=== PATIENT | male | born 1960 | race Caucasian/White ===

== ENCOUNTER 2018-03-29 15:55 | Inpatient (IN) | payer OTHER ==
[2018-03-29 16:47] VITALS: BMI 17.7
--- NOTE | 2018-03-29 20:08 | HP ---
CIWA Score - Admission Criteria [facility] Guidelines: Admission for Medically Managed Detox: Requires at least one of the followin. CIWA greater than 12 2. Seizures within the past 24 hours 3. Delirium tremens within the past 24 hours 4. Hallucinations within the past 24 hours 5. Acute intervention needed for co occurring medical disorder 6. Acute intervention needed for co occurring psychiatric disorder 7. Severe withdrawal that cannot be handled at a lower level of care (continued vomiting, continued diarrhea, abnormal vital signs) requiring intravenous medication and/or fluids 8. Admission ROS S - HPI Chief Complaint: Here to get straight from crack/cocaine. Allergies/Adverse Reactions: Allergies Allergy/AdvReac Type Severity Reaction Status Date / Time penicillin G AdvReac Rash Verified 03/29/18 17:45 History of Present Illness: Here for rehab. Hx crack/cocaine use since age 26. Use daily. Nicotine use began at age 25. Stopped drinking in the 90's. Longest length of sobriety 7 years. Denies seizures or blackouts. Hx: HIV (+) Brought in current bottles of Periactin, Hydrocortisone, Lexapro, Risperidal, and MVI tablets but states "My doctor told me to take them". Not sure what medications are for. States was taking HIV medications but did not bring to program. Aware that this will not be provided w/o proof of compliance. Treated for Hep C. Hx: Depression. Denies thoughts of harming self or others. No recent provider visits. Denies other significant PMH Search Terms: Meliton Mukherjee, 1960 Search Date: 03/29/2018 07:59:05 PM The Drug Utilization Report below displays all of the controlled substance prescriptions, if any, that your patient has filled in the last twelve months. The information displayed on this report is compiled from pharmacy submissions to the Department, and accurately reflects the information as submitted by the pharmacies. This report was requested by: Brie Dover | Reference #: [id number] There are no results for the search terms that you entered. Exam Limitations: No Limitations - Ebola screening Have you traveled outside of the country in the last 21 days: No Have you had contact with anyone from an Ebola affected area: No Have you been sick,other than usual withdrawal symptoms: No Do you have a fever: No - Review of Systems Constitutional: Loss of Appetite, Changes in sleep (Difficulty falling asleep. States Trazodone was stopped.) EENT: reports: Ear Pain ((R) ear pain when burps x 3 months ago.), Dental Problems (Missing teeth. Can chew and swallow okay.), Other (States glaucoma (R ) eye - states stopped eye drops on own) Respiratory: reports: No Symptoms reported Cardiac: reports: No Symptoms Reported GI: reports: Poor Appetite : reports: No Symptoms Reported Musculoskeletal: reports: Other (Hx spontaneous bilateral shoulder dislocations w/ certain movements.) Integumentary: reports: Rash (Rash on face w/ increased redness) Neuro: reports: No Symptoms reported Endocrine: reports: No Symptoms Reported Hematology: reports: No Symptoms Reported Psychiatric: reports: Judgement Intact, Orientated x3, Agitated, Anxious, Depressed (Denies thoughts of harming self or others) Patient History - Patient Medical History Hx Anemia: No Hx Asthma: No Hx Chronic Obstructive Pulmonary Disease (COPD): No Hx Cancer: No Hx Cardiac Disorders: No Hx Congestive Heart Failure: No Hx Hypertension: No Hx Hypercholesterolemia: No Hx Pacemaker: No HX Cerebrovascular Accident: No Hx Seizures: No Hx Dementia: No Hx Diabetes: No Hx Gastrointestinal Disorders: No Hx Liver Disease: No Hx Genitourinary Disorders: No Hx Sexually Transmitted Disorders: No Hx Renal Disease (ESRD): No Hx Thyroid Disease: No Hx Human Immunodeficiency Virus (HIV): Yes (2010) Hx Hepatitis C: Yes (TREATED) Hx Depression: Yes Hx Suicide Attempt: No Hx Bipolar Disorder: No Hx Schizophrenia: No - Patient Surgical History Past Surgical History: Yes Hx Neurologic Surgery: No Hx Cataract Extraction: No Hx Cardiac Surgery: No Hx Lung Surgery: No Hx Breast Surgery: No Hx Breast Biopsy: No Hx Abdominal Surgery: No Hx Appendectomy: No Hx Cholecystectomy: No Hx Genitourinary Surgery: No Hx Section: No Hx Orthopedic Surgery: No Other Surgical History: fx, left mandible in 1988 Anesthesia Reaction: No - PPD History Previous Implant?: Yes Documented Results: Negative w/proof Implanted On Prior [facility] Admission?: Yes Date: 10/29/17 Results: 0 mm PPD to be Administered?: No - Smoking Cessation Smoking history: Current every day smoker Have you smoked in the past 12 months: Yes Aproximately how many cigarettes per day: 20 Cigars Per Day: 0 Hx Chewing Tobacco Use: No Initiated information on smoking cessation: Yes 'Breaking Loose' booklet given: 03/29/18 - Substance & Tx. History Hx Alcohol Use: Yes (Stopped in 1994) Hx Substance Use: Yes Substance Use Type: Cocaine Hx Substance Use Treatment: Yes (rehabs, attempts at self detox) - Substances Abused Crack Route: Smoking Frequency: Daily Amount used: $100 Age of first use: 26 Date of Last Use: 03/28/18 Family Disease History - Family Disease History Family Disease History: Heart Disease: Father (), Brother, Respiratory: Mother (), Other: Father, Mother Admission Physical Exam [facility] - Vital Signs Vital Signs: Vital Signs - 24 hr 03/29/18 16:43 Temperature 97.7 F Pulse Rate 89 Respiratory 18 Rate Blood Pressure 140/70 - Physical General Appearance: Yes: No Apparent Distress, Appropriately Dressed, Thin, Anxious HEENTM: Yes: EOMI, Hearing grossly Normal, Normal Voice, AMARJIT, Pharynx Normal Respiratory: Yes: Lungs Clear, Normal Breath Sounds, No Respiratory Distress Neck: Yes: No masses,lesions,Nodules, Supple Breast: Yes: Breast Exam Deferred Cardiology: Yes: Regular Rhythm, Regular Rate, S1, S2 Abdominal: Yes: Increased Bowel Sounds Genitourinary: Yes: Within Normal Limits Back: Yes: Normal Inspection Musculoskeletal: Yes: full range of Motion, Gait Steady Neurological: Yes: hemodialysis patient care specialist II-XII NML intact, Fully Oriented, Alert, Motor Strength 5/5, Normal Mood/Affect, Normal Response Integumentary: Yes: Normal Color, Dry, Warm, Rash (Scattered flat, oval, erythematous rash on face) Lymphatic: Yes: Within Normal Limits - Diagnostic (1) Rash Current Visit: Yes Status: Chronic Comment: Facial lesions (2) Cocaine dependence Current Visit: Yes Status: Chronic Qualifiers: Substance use status: uncomplicated Qualified Code(s): F14.20 - Cocaine dependence, uncomplicated (3) Weight loss Current Visit: Yes Status: Chronic (4) Nicotine dependence Current Visit: Yes Status: Chronic Qualifiers: Nicotine product type: cigarettes Substance use status: uncomplicated Qualified Code(s): F17.210 - Nicotine dependence, cigarettes, uncomplicated (5) HIV (human immunodeficiency virus infection) Current Visit: Yes Status: Chronic Comment: Recommend the patient to have medication brought in for rehab stay Cleared for Admission [facility] - Detox or Rehab Claeared for Rehab Admission: Yes [facility] Breath Alcohol Content Breath Alcohol Content: 0 Urine Drug Screen - Results Drug Screen Negative: No Urine Drug Screen Results: [facility] Inpatient Rehab Admission - Initial Determination Are CD services needed?: Yes Free of communicable disease: No Not in need of hospitalization: Yes - Rehab Admission Criteria Previous failed treatment: Yes Poor recovery environment: Yes Comorbidities: Yes Lacks judgement: No Patient is meeting Inpatient Rehab admission criteria:: Yes (Patient's communicable disease is HIV)
[2018-03-29] MEDS ORDERED: IBUPROFEN 400 MG TABLET (FP) PO PRN (21:47)
[2018-03-29] MEDS ORDERED: ACETAMINOPHEN 325 MG TABLET (FP) PO PRN (21:47)
[2018-03-29] MEDS ORDERED: LOPERAMIDE HCL 2 MG CAPSULE PO PRN (21:47)
[2018-03-29] MEDS ORDERED: MAGNESIUM CITRATE 300 ML BOTTLE PO PRN (21:47)
[2018-03-29] MEDS ORDERED: MENTHOL/PHENOL 1 EACH UD MM PRN (21:47)
[2018-03-29] MEDS ORDERED: MAGNESIUM HYDROX 2400MG/30ML ORAL SUSPENSION 30 ML CUP PO PRN (21:47)
[2018-03-29] MEDS: THIAMINE HCL 100 MG TABLET (FP) PO SCH (23:12)
[2018-03-29] MEDS: hydrOXYzine PAMOATE 50 MG CAPSULE (FP) PO PRN (23:12)
[2018-03-29] MEDS: MELATONIN 5 MG TABLETS PO PRN (23:12)
[2018-03-29] MEDS: CYPROHEPTADINE HCL 4 MG TABLET PO SCH (23:12)
[2018-03-29] MEDS: BETAMETHASONE VALERATE 0.1% CREAM 15 GM TUBE TP SCH (23:13)
[2018-03-29] MEDS: HYDROCORTISONE 5 MG TABLET PO SCH (23:20)
[2018-03-30] MEDS: CYPROHEPTADINE HCL 4 MG TABLET PO SCH ×3 (06:22→21:29)
--- NOTE | 2018-03-30 06:41 | HP ---
Psychiatrist Admission - Data Date of interview: 03/30/18 Admission source: Self-referred Identifying data: This is the second [facility] admission for this 58 years old single male, unemployed on SSI, living in [facility] subsidized housing Medical History: Significant for HIV and history of treatment for hepatitis C and surgery for fracture left mandible. Smke cigarettes 1ppd Psychiatric History: Patient is known to caption writer from a previous admission to this facility on Oct 2017. He remains a poor historian, irritable and not too cooperative in providing information. He reported that he was diagnosed with depression and never had prevous psychiatric hospitalization. Reported that up to July 2017, he was receiving psychiatric outpatient services at [facility] on [address] [place]([facility]) and he was prescribed Risperdal 1 mg po HS. He reluctantly admitted to a suicide attempt by jumping(he did not say what) because of romantic conflict but his brother talked him out of it. He was discharged in last October on Risperdal 1 mg po HS. Told caption writer that he has not seen any psychiatrist nor taking any medications since his discharge. Mineral Surveying Technician called patient's pharmacy([facility])[phone] and was told patient filled scripts for 30 days supply of Risperdal 1 mg po HS and Lexapro 10 mg po daily on . At present, he is very irritable and reports sleeping poorly Physical/Sexual Abuse/Trauma History: Denies emotional, physical or sexual abuse as well as DV relationship Additional Comment: Reports a few previous misdemeanor arrests on charges of possession of narcotic Vital Signs: Vital Signs - 24 hr 03/29/18 03/30/18 03/30/18 16:43 00:30 03:30 Temperature 97.7 F Pulse Rate 89 Respiratory 18 16 16 Rate Blood Pressure 140/70 Allergies/Adverse Reactions: Allergies Allergy/AdvReac Type Severity Reaction Status Date / Time penicillin G AdvReac Rash Verified 03/29/18 17:45 Date of last physical exam: 03/29/18 Concur with the findings of this exam: Yes - Substance Abuse/Tx History Hx Substance Use: Yes Substance Use Type: Cocaine (Started smoking crack cocaine at age 26, consumes $ 100 worth daily. Last smoked on 03/28/18) Hx Substance Use Treatment: Yes (2-3previous inpt rehab admissions) Mental Status Exam - Mental Status Exam Alert and Oriented to: Time, Place, Person Cognitive Function: Fair Patient Appearance: Disheveled Mood: Irritable Affect: Appropriate Patient Behavior: Cooperative (Superficially) Speech Pattern: Clear Voice Loudness: Normal Thought Process: Intact Thought Disorder: Not Present Hallucinations: Denies Suicidal Ideation: Denies Insight/Judgement: Fair Sleep: Poorly Appetite: Poor Muscle strength/Tone: Normal Gait/Station: Normal Psychiatric Findings - Problem List ([place] 1, 2,3) (1) Cocaine dependence Current Visit: Yes Status: Chronic Qualifiers: Substance use status: uncomplicated Qualified Code(s): F14.20 - Cocaine dependence, uncomplicated (2) Nicotine dependence Current Visit: Yes Status: Chronic Qualifiers: Nicotine product type: cigarettes Substance use status: uncomplicated Qualified Code(s): F17.210 - Nicotine dependence, cigarettes, uncomplicated (3) Mood disorder Current Visit: No Status: Chronic (4) Bipolar II disorder Current Visit: No Status: Ruled-out (5) Substance induced mood disorder Current Visit: No Status: Acute (6) Substance-induced sleep disorder Current Visit: No Status: Acute (7) HIV (human immunodeficiency virus infection) Current Visit: Yes Status: Chronic Comment: Recommend the patient to have medication brought in for rehab stay (8) Hepatitis C Current Visit: No Status: Resolved Qualifiers: Viral hepatitis chronicity: unspecified Hepatic coma status: without hepatic coma Qualified Code(s): B19.20 - Unspecified viral hepatitis C without hepatic coma - Initial Treatment Plan Initial Treatment Plan: 1) Start Risperdal 1 mg po BID and Melatonin 5 mg po HS prn for insomnia. 2) Monitor progress
[2018-03-30 10:21] LABS: URINE APPEARANCE CLEAR; URINE BILIRUBIN NEGATIVE (<2.0 mg/dL); URINE COLOR STRAW; URINE GLUCOSE (UA) NEGATIVE (NEGATIVE); URINE KETONE NEGATIVE (NEGATIVE); URINE LEUK ESTERASE NEGATIVE (NEGATIVE); URINE NITRITE NEGATIVE (NEGATIVE); URINE PROTEIN NEGATIVE (NEGATIVE); URINE UROBILINOGEN NEGATIVE mg/dL (0.2-1.0)
[2018-03-30] MEDS: NICOTINE 21 MG/24 HOURS TOPICAL PATCH TD SCH (10:31)
[2018-03-30] MEDS: PRENATAL VITAMINS W/ FOLIC ACID TABLET (FP) PO SCH (10:31)
[2018-03-30] MEDS: BETAMETHASONE VALERATE 0.1% CREAM 15 GM TUBE TP SCH ×2 (10:32→21:30)
[2018-03-30] MEDS ORDERED: risperiDONE 1 MG TABLET (FP) PO SCH (12:15)
[2018-03-30] MEDS: ESCITALOPRAM OXALATE 10 MG TABLET (FP) PO SCH (13:34)
[2018-03-30 15:27] LABS: HEMATOCRIT 42.7 % (35.4-49); HEMOGLOBIN 13.9 GM/dL (11.7-16.9); MCHC 32.6 g/dl (32.0-35.9); MEAN CELL VOLUME 95.2 fl (80-96); MEAN PLT VOLUME 8.8 fl (7.5-11.1); PLATELET COUNT 107 K/MM3 (134-434); RBC 4.48 M/mm3 (4.00-5.60); RDW 14.8 % (11.9-15.9); WHITE BLOOD COUNT 4.6 K/mm3 (4.0-10.0)
[2018-03-30 15:37] LABS: ALBUMIN 3.2 g/dl (3.4-5.0); ALK PHOS 61 U/L (45-117); ANION GAP 5 MMOL/L (8-16); BILIRUBIN,TOTAL 0.2 mg/dL (0.2-1); BLOOD UREA NITROGEN 22 mg/dL (7-18); CALCIUM 8.9 mg/dL (8.5-10.1); CHLORIDE 110 mmol/L (98-107); CO2 26 mmol/L (21-32); CREATININE 1.5 mg/dL (0.55-1.3); GLUCOSE,RANDOM 107 mg/dL (74-106); POTASSIUM 4.1 mmol/L (3.5-5.1); SGOT/AST 15 U/L (15-37); SGPT/ALT 16 U/L (13-61); SODIUM 141 mmol/L (136-145); TOT PROT 6.6 g/dl (6.4-8.2)
[2018-03-30] MEDS: MELATONIN 5 MG TABLETS PO PRN (21:29)
[2018-03-30] MEDS: hydrOXYzine PAMOATE 50 MG CAPSULE (FP) PO PRN (21:29)
[2018-03-30] MEDS: THIAMINE HCL 100 MG TABLET (FP) PO SCH (21:29)
[2018-03-30] MEDS: risperiDONE 1 MG TABLET (FP) PO SCH (21:29)
[2018-03-30] MEDS: HYDROCORTISONE 5 MG TABLET PO SCH (21:31)
[2018-03-31] MEDS: CYPROHEPTADINE HCL 4 MG TABLET PO SCH ×3 (06:06→21:11)
[2018-03-31] MEDS: ESCITALOPRAM OXALATE 10 MG TABLET (FP) PO SCH (09:46)
[2018-03-31] MEDS: NICOTINE 21 MG/24 HOURS TOPICAL PATCH TD SCH (09:46)
[2018-03-31] MEDS: PRENATAL VITAMINS W/ FOLIC ACID TABLET (FP) PO SCH (09:46)
[2018-03-31] MEDS: hydrOXYzine PAMOATE 50 MG CAPSULE (FP) PO PRN ×2 (09:46→21:11)
[2018-03-31] MEDS: BETAMETHASONE VALERATE 0.1% CREAM 15 GM TUBE TP SCH ×2 (09:46→21:12)
[2018-03-31] MEDS ORDERED: PT OWN MED DRAWER 7, Y5N ONE (19:28)
[2018-03-31] MEDS: HYDROCORTISONE 5 MG TABLET PO SCH (21:11)
[2018-03-31] MEDS: MELATONIN 5 MG TABLETS PO PRN (21:11)
[2018-03-31] MEDS: THIAMINE HCL 100 MG TABLET (FP) PO SCH (21:11)
[2018-03-31] MEDS: risperiDONE 1 MG TABLET (FP) PO SCH (21:12)
[2018-04-01] MEDS: CYPROHEPTADINE HCL 4 MG TABLET PO SCH ×3 (06:03→21:32)
[2018-04-01] MEDS: ESCITALOPRAM OXALATE 10 MG TABLET (FP) PO SCH (10:01)
[2018-04-01] MEDS: NICOTINE 21 MG/24 HOURS TOPICAL PATCH TD SCH (10:01)
[2018-04-01] MEDS: PRENATAL VITAMINS W/ FOLIC ACID TABLET (FP) PO SCH (10:01)
[2018-04-01] MEDS: BETAMETHASONE VALERATE 0.1% CREAM 15 GM TUBE TP SCH ×2 (10:02→21:34)
[2018-04-01] MEDS: THIAMINE HCL 100 MG TABLET (FP) PO SCH (21:32)
[2018-04-01] MEDS: hydrOXYzine PAMOATE 50 MG CAPSULE (FP) PO PRN (21:32)
[2018-04-01] MEDS: risperiDONE 1 MG TABLET (FP) PO SCH (21:32)
[2018-04-01] MEDS: HYDROCORTISONE 5 MG TABLET PO SCH (21:32)
[2018-04-01] MEDS: MELATONIN 5 MG TABLETS PO PRN (21:32)
[2018-04-02] MEDS: CYPROHEPTADINE HCL 4 MG TABLET PO SCH ×3 (06:00→21:04)
[2018-04-02] MEDS: PRENATAL VITAMINS W/ FOLIC ACID TABLET (FP) PO SCH (09:51)
[2018-04-02] MEDS: NICOTINE 21 MG/24 HOURS TOPICAL PATCH TD SCH (09:52)
[2018-04-02] MEDS: BETAMETHASONE VALERATE 0.1% CREAM 15 GM TUBE TP SCH ×2 (09:52→21:06)
[2018-04-02] MEDS: ESCITALOPRAM OXALATE 10 MG TABLET (FP) PO SCH (09:52)
[2018-04-02] MEDS: hydrOXYzine PAMOATE 50 MG CAPSULE (FP) PO PRN (21:04)
[2018-04-02] MEDS: risperiDONE 1 MG TABLET (FP) PO SCH (21:04)
[2018-04-02] MEDS: MELATONIN 5 MG TABLETS PO PRN (21:04)
[2018-04-02] MEDS: THIAMINE HCL 100 MG TABLET (FP) PO SCH (21:04)
[2018-04-02] MEDS: HYDROCORTISONE 5 MG TABLET PO SCH (21:04)
[2018-04-02] MEDS ORDERED: PT OWN MED DRAWER 7, Y5N ONE (21:15)
[2018-04-03] MEDS: CYPROHEPTADINE HCL 4 MG TABLET PO SCH ×3 (06:14→21:50)
[2018-04-03] MEDS: NICOTINE 21 MG/24 HOURS TOPICAL PATCH TD SCH (09:44)
[2018-04-03] MEDS: ESCITALOPRAM OXALATE 10 MG TABLET (FP) PO SCH (09:44)
[2018-04-03] MEDS: PRENATAL VITAMINS W/ FOLIC ACID TABLET (FP) PO SCH (09:44)
[2018-04-03] MEDS: BETAMETHASONE VALERATE 0.1% CREAM 15 GM TUBE TP SCH ×2 (09:45→21:50)
[2018-04-03] MEDS: hydrOXYzine PAMOATE 50 MG CAPSULE (FP) PO PRN (21:50)
[2018-04-03] MEDS: risperiDONE 1 MG TABLET (FP) PO SCH (21:50)
[2018-04-03] MEDS: THIAMINE HCL 100 MG TABLET (FP) PO SCH (21:50)
[2018-04-03] MEDS: HYDROCORTISONE 5 MG TABLET PO SCH (21:51)
[2018-04-04] MEDS: CYPROHEPTADINE HCL 4 MG TABLET PO SCH ×3 (06:25→21:11)
[2018-04-04] MEDS: BETAMETHASONE VALERATE 0.1% CREAM 15 GM TUBE TP SCH ×2 (11:06→21:12)
[2018-04-04] MEDS: PRENATAL VITAMINS W/ FOLIC ACID TABLET (FP) PO SCH (11:06)
[2018-04-04] MEDS: NICOTINE 21 MG/24 HOURS TOPICAL PATCH TD SCH (11:06)
[2018-04-04] MEDS: ESCITALOPRAM OXALATE 10 MG TABLET (FP) PO SCH (11:06)
[2018-04-04] MEDS ORDERED: PT OWN MED DRAWER 7, Y5N ONE ×2 (20:33→21:17)
[2018-04-04] MEDS: risperiDONE 1 MG TABLET (FP) PO SCH (21:11)
[2018-04-04] MEDS: THIAMINE HCL 100 MG TABLET (FP) PO SCH (21:11)
[2018-04-04] MEDS: hydrOXYzine PAMOATE 50 MG CAPSULE (FP) PO PRN (21:11)
[2018-04-04] MEDS: MELATONIN 5 MG TABLETS PO PRN (21:11)
[2018-04-04] MEDS: HYDROCORTISONE 5 MG TABLET PO SCH (21:11)
[2018-04-04] MEDS: MAG HYDROX/AL HYDROX/SIMETH 30 ML UNIT-DOSE CUP PO PRN (21:17)
[2018-04-05] MEDS: CYPROHEPTADINE HCL 4 MG TABLET PO SCH ×3 (06:08→22:00)
[2018-04-05] MEDS: PRENATAL VITAMINS W/ FOLIC ACID TABLET (FP) PO SCH (10:11)
[2018-04-05] MEDS: NICOTINE 21 MG/24 HOURS TOPICAL PATCH TD SCH (10:11)
[2018-04-05] MEDS: ESCITALOPRAM OXALATE 10 MG TABLET (FP) PO SCH (10:11)
[2018-04-05] MEDS: BETAMETHASONE VALERATE 0.1% CREAM 15 GM TUBE TP SCH ×2 (10:12→21:58)
[2018-04-05] MEDS ORDERED: PT OWN MED DRAWER 7, Y5N ONE (19:50)
[2018-04-05] MEDS: MAG HYDROX/AL HYDROX/SIMETH 30 ML UNIT-DOSE CUP PO PRN (22:00)
[2018-04-05] MEDS: HYDROCORTISONE 5 MG TABLET PO SCH (22:00)
[2018-04-05] MEDS: hydrOXYzine PAMOATE 50 MG CAPSULE (FP) PO PRN (22:00)
[2018-04-05] MEDS: MELATONIN 5 MG TABLETS PO PRN (22:00)
[2018-04-05] MEDS: risperiDONE 1 MG TABLET (FP) PO SCH (22:00)
[2018-04-05] MEDS: THIAMINE HCL 100 MG TABLET (FP) PO SCH (22:01)
[2018-04-06] MEDS: CYPROHEPTADINE HCL 4 MG TABLET PO SCH ×3 (06:07→21:09)
[2018-04-06] MEDS: PRENATAL VITAMINS W/ FOLIC ACID TABLET (FP) PO SCH (09:52)
[2018-04-06] MEDS: ESCITALOPRAM OXALATE 10 MG TABLET (FP) PO SCH (09:52)
[2018-04-06] MEDS: NICOTINE 21 MG/24 HOURS TOPICAL PATCH TD SCH (09:52)
[2018-04-06] MEDS: BETAMETHASONE VALERATE 0.1% CREAM 15 GM TUBE TP SCH ×2 (09:53→21:10)
[2018-04-06] MEDS: HYDROCORTISONE 5 MG TABLET PO SCH (21:08)
[2018-04-06] MEDS: risperiDONE 1 MG TABLET (FP) PO SCH (21:08)
[2018-04-06] MEDS: THIAMINE HCL 100 MG TABLET (FP) PO SCH (21:08)
[2018-04-06] MEDS: MELATONIN 5 MG TABLETS PO PRN (21:09)
[2018-04-06] MEDS: hydrOXYzine PAMOATE 50 MG CAPSULE (FP) PO PRN (21:09)
[2018-04-07] MEDS: CYPROHEPTADINE HCL 4 MG TABLET PO SCH ×3 (05:51→21:30)
[2018-04-07] MEDS: ESCITALOPRAM OXALATE 10 MG TABLET (FP) PO SCH (10:38)
[2018-04-07] MEDS: NICOTINE 21 MG/24 HOURS TOPICAL PATCH TD SCH (10:38)
[2018-04-07] MEDS: PRENATAL VITAMINS W/ FOLIC ACID TABLET (FP) PO SCH (10:38)
[2018-04-07] MEDS: BETAMETHASONE VALERATE 0.1% CREAM 15 GM TUBE TP SCH ×2 (10:39→21:30)
[2018-04-07] MEDS: MELATONIN 5 MG TABLETS PO PRN (21:30)
[2018-04-07] MEDS: THIAMINE HCL 100 MG TABLET (FP) PO SCH (21:30)
[2018-04-07] MEDS: HYDROCORTISONE 5 MG TABLET PO SCH (21:30)
[2018-04-07] MEDS: risperiDONE 1 MG TABLET (FP) PO SCH (21:30)
[2018-04-08] MEDS: CYPROHEPTADINE HCL 4 MG TABLET PO SCH ×3 (06:28→21:17)
[2018-04-08] MEDS: ESCITALOPRAM OXALATE 10 MG TABLET (FP) PO SCH (09:37)
[2018-04-08] MEDS: BETAMETHASONE VALERATE 0.1% CREAM 15 GM TUBE TP SCH ×2 (09:37→21:17)
[2018-04-08] MEDS: NICOTINE 21 MG/24 HOURS TOPICAL PATCH TD SCH (09:37)
[2018-04-08] MEDS: PRENATAL VITAMINS W/ FOLIC ACID TABLET (FP) PO SCH (09:37)
[2018-04-08] MEDS: THIAMINE HCL 100 MG TABLET (FP) PO SCH (21:17)
[2018-04-08] MEDS: HYDROCORTISONE 5 MG TABLET PO SCH (21:17)
[2018-04-08] MEDS: risperiDONE 1 MG TABLET (FP) PO SCH (21:17)
[2018-04-08] MEDS: hydrOXYzine PAMOATE 50 MG CAPSULE (FP) PO PRN (21:20)
[2018-04-08] MEDS: MELATONIN 5 MG TABLETS PO PRN (21:20)
[2018-04-09] MEDS: CYPROHEPTADINE HCL 4 MG TABLET PO SCH ×3 (06:11→21:09)
[2018-04-09] MEDS: NICOTINE 21 MG/24 HOURS TOPICAL PATCH TD SCH (09:26)
[2018-04-09] MEDS: BETAMETHASONE VALERATE 0.1% CREAM 15 GM TUBE TP SCH ×2 (09:26→21:09)
[2018-04-09] MEDS: PRENATAL VITAMINS W/ FOLIC ACID TABLET (FP) PO SCH (09:26)
[2018-04-09] MEDS: ESCITALOPRAM OXALATE 10 MG TABLET (FP) PO SCH (09:26)
[2018-04-09] MEDS: MAG HYDROX/AL HYDROX/SIMETH 30 ML UNIT-DOSE CUP PO PRN (16:04)
[2018-04-09] MEDS: risperiDONE 1 MG TABLET (FP) PO SCH (21:08)
[2018-04-09] MEDS: HYDROCORTISONE 5 MG TABLET PO SCH (21:09)
[2018-04-09] MEDS: THIAMINE HCL 100 MG TABLET (FP) PO SCH (21:09)
[2018-04-09] MEDS: MELATONIN 5 MG TABLETS PO PRN (21:11)
[2018-04-10] MEDS: CYPROHEPTADINE HCL 4 MG TABLET PO SCH ×3 (05:57→21:29)
[2018-04-10] MEDS: PRENATAL VITAMINS W/ FOLIC ACID TABLET (FP) PO SCH (10:50)
[2018-04-10] MEDS: BETAMETHASONE VALERATE 0.1% CREAM 15 GM TUBE TP SCH ×2 (10:50→21:29)
[2018-04-10] MEDS: NICOTINE 21 MG/24 HOURS TOPICAL PATCH TD SCH (10:50)
[2018-04-10] MEDS: ESCITALOPRAM OXALATE 10 MG TABLET (FP) PO SCH (10:50)
[2018-04-10] MEDS: MAG HYDROX/AL HYDROX/SIMETH 30 ML UNIT-DOSE CUP PO PRN ×2 (14:06→21:33)
[2018-04-10] MEDS: risperiDONE 1 MG TABLET (FP) PO SCH (21:29)
[2018-04-10] MEDS: HYDROCORTISONE 5 MG TABLET PO SCH (21:29)
[2018-04-10] MEDS: THIAMINE HCL 100 MG TABLET (FP) PO SCH (21:29)
[2018-04-10] MEDS: MELATONIN 5 MG TABLETS PO PRN (21:30)
[2018-04-11] MEDS: CYPROHEPTADINE HCL 4 MG TABLET PO SCH ×3 (05:51→21:07)
[2018-04-11] MEDS: PRENATAL VITAMINS W/ FOLIC ACID TABLET (FP) PO SCH (09:47)
[2018-04-11] MEDS: NICOTINE 21 MG/24 HOURS TOPICAL PATCH TD SCH (09:47)
[2018-04-11] MEDS: ESCITALOPRAM OXALATE 10 MG TABLET (FP) PO SCH (09:47)
[2018-04-11] MEDS: BETAMETHASONE VALERATE 0.1% CREAM 15 GM TUBE TP SCH ×2 (10:33→21:07)
[2018-04-11] MEDS: MELATONIN 5 MG TABLETS PO PRN (21:06)
[2018-04-11] MEDS: hydrOXYzine PAMOATE 50 MG CAPSULE (FP) PO PRN (21:06)
[2018-04-11] MEDS: risperiDONE 1 MG TABLET (FP) PO SCH (21:06)
[2018-04-11] MEDS: THIAMINE HCL 100 MG TABLET (FP) PO SCH (21:06)
[2018-04-11] MEDS: HYDROCORTISONE 5 MG TABLET PO SCH (21:07)
[2018-04-11] MEDS: MAG HYDROX/AL HYDROX/SIMETH 30 ML UNIT-DOSE CUP PO PRN (21:57)
[2018-04-12] MEDS: CYPROHEPTADINE HCL 4 MG TABLET PO SCH (05:57)
[2018-04-12 06:40] VITALS: BP 113/73; PULSE 91; TEMP 97.7
--- NOTE | 2018-04-12 08:08 | PN ---
Psychiatric Progress Note Vital Signs: Vital Signs Period Temp Pulse Resp BP Sys/Jimenez Pulse Ox Last 24 Hr 97.7 F 91 18-18 113/73 Date of Session: 04/12/18 Chief Complaint:: Discharge Note HPI: Patient addressing Cocaine Dependence comorbid with Nicotine Dependence, Mood Disorder, Substance-InducedMood Disorder and Substance-Induced Sleep Disorder ROS: HIV, Hep C were medically managed Current Medications: Active Medications Generic Name Dose Route Start Last Admin Trade Name Freq PRN Reason Stop Dose Admin Acetaminophen 650 mg 03/29/18 21:47 Tylenol - PO Q4H PRN FEVER Al Hydroxide/Mg Hydroxide 30 ml 03/29/18 21:47 04/11/18 21:57 Mylanta Oral Suspension - PO 30 ml Q6H PRN Administration DYSPEPSIA Betamethasone Valerate 1 applic 03/29/18 22:00 04/11/18 21:07 Valisone 0.1% Cream - TP 1 pack BID SAMIRA Administration Cyproheptadine HCl 4 mg 03/29/18 22:00 04/12/18 05:57 Periactin - PO 4 mg TID SAMIRA Administration Escitalopram Oxalate 10 mg 03/30/18 12:40 04/11/18 09:47 Lexapro - PO 10 mg DAILY SAMIRA Administration Eucalyptus/Menthol/Phenol/Sorbitol 1 each 03/29/18 21:47 Cepastat Lozenge - MM Q4H PRN SORE THROAT Hydrocortisone 5 mg 03/29/18 22:00 04/11/18 21:07 Cortef - PO 5 mg HS SAMIRA Administration Hydroxyzine Pamoate 50 mg 03/29/18 21:47 04/11/18 21:06 Vistaril - PO 50 mg Q4H PRN Administration AGITATION Ibuprofen 400 mg 03/29/18 21:47 Motrin - PO Q6H PRN Pain level 4-6 Loperamide HCl 4 mg 03/29/18 21:47 Imodium - PO Q6H PRN DIARRHEA Magnesium Citrate 300 ml 03/29/18 21:47 Citroma - PO Q48H PRN CONSTIPATION Magnesium Hydroxide 30 ml 03/29/18 21:47 Milk Of Magnesia - PO DAILY PRN CONSTIPATION Melatonin 5 mg 03/29/18 22:00 04/11/18 21:06 Melatonin PO 5 mg HS PRN Administration INSOMNIA Nicotine 21 mg 03/30/18 10:00 04/11/18 09:47 Nicoderm Patch - TD 21 mg DAILY SAMIRA Administration Multivit/Folic Acid/Iron 1 tab 03/30/18 10:00 04/11/18 09:47 Vitamins (Sjr) - PO 1 tab DAILY SAMIRA Administration Risperidone 1 mg 03/30/18 22:00 04/11/18 21:06 Risperdal - PO 1 mg HS SAMIRA Administration Thiamine HCl 100 mg 03/29/18 22:00 04/11/18 21:06 Vitamin B1 - PO 100 mg HS SAMIRA Administration Current Side Effect: No Lab tests ordered: Yes Lab tests reviewed: Yes Provider note:: Patient has completed this program today. He has met his treatment goals and will continue to address his issues in outpatient treatment at [facility] at [address] [place] [address]. Told video games storywriter that from his participation in this program, he has learned the importance of making meetings and get a sponsor. He responded well to Lexapro 10 mg po daily and Risperdal 1 mg po HS. Scripts for 30 days supply of these medications are electronically transmitted to [facility] at [address] [place] [address]. He is stable for discharge today Total face to face time:: 35 Mental Status Exam - Mental Status Exam Alert and Oriented to: Time, Place, Person Cognitive Function: Fair Patient Appearance: Well Groomed Mood: Hopeful, Euthymic Affect: Appropriate Patient Behavior: Cooperative Speech Pattern: Clear Voice Loudness: Normal Thought Process: Intact, Goal Oriented Thought Disorder: Not Present Hallucinations: Denies Suicidal Ideation: Denies Insight/Judgement: Fair Sleep: Fair Appetite: Good Muscle strength/Tone: Normal Gait/Station: Normal Psychiatric Treatment Plan - Problem List (1) Cocaine dependence Current Visit: Yes Qualifiers: Substance use status: uncomplicated Qualified Code(s): F14.20 - Cocaine dependence, uncomplicated (2) Nicotine dependence Current Visit: Yes Qualifiers: Nicotine product type: cigarettes Substance use status: uncomplicated Qualified Code(s): F17.210 - Nicotine dependence, cigarettes, uncomplicated (3) Mood disorder Current Visit: No (4) Bipolar II disorder Current Visit: No (5) Substance induced mood disorder Current Visit: No (6) Substance-induced sleep disorder Current Visit: No (7) HIV (human immunodeficiency virus infection) Current Visit: Yes Comment: Recommend the patient to have medication brought in for rehab stay (8) Hepatitis C Current Visit: No Qualifiers: Viral hepatitis chronicity: unspecified Hepatic coma status: without hepatic coma Qualified Code(s): B19.20 - Unspecified viral hepatitis C without hepatic coma Initial treatment plan: Patient is discharged today and referred to [facility] for outpatient treatment
[2018-04-12] MEDS: ESCITALOPRAM OXALATE 10 MG TABLET (FP) PO SCH (09:01)
[2018-04-12] MEDS: NICOTINE 21 MG/24 HOURS TOPICAL PATCH TD SCH (09:01)
[2018-04-12] MEDS: PRENATAL VITAMINS W/ FOLIC ACID TABLET (FP) PO SCH (09:01)
[2018-04-12] MEDS: BETAMETHASONE VALERATE 0.1% CREAM 15 GM TUBE TP SCH (09:02)
--- NOTE | 2018-04-12 10:00 | PN ---
[facility] Progress Note Note: PATIENT COMPLETED REHAB TODAY WITHOUT ADVERSE EVENT. PATIENT MEDICALLY STABLE AND DENIES SI/HI. PATIENT TO FOLLOW UP WITH [facility] FOR OUTPATIENT ADDICTION SERVICES AND PRIMARY CARE SERVICES. PATIENT ENCOURAGED TO ATTEND GROUP MEETINGS AND OUTPATIENT TREATMENT TO PREVENT RELAPSE. PATIENT NONCOMPLIANT WITH MEDICAL TREATMENT AND EDUCATED REGARDING IMPORTANCE OF COMPLIANCE AND MEDICAL FOLLOW UP. PATIENT VERBALIZED UNDERSTANDING AND D/C PAPERS PROVIDED TO PATIENT BY STAFF. Vital Signs Temperature 97.7 F 04/12/18 06:39 Pulse Rate 91 H 04/12/18 06:39 Respiratory Rate 18 04/12/18 06:39 Blood Pressure 113/73 04/12/18 06:39 O2 Sat by Pulse Oximetry (%)
== END 2018-04-12 10:03 | disposition home or self-care (01) | DRG 772 ==
LOC: YASAS 15:55 → Y3W 18:43
PROVIDERS: ADMIT Psychiatry & Neurology Psychiatry; ATTEND Psychiatry & Neurology Psychiatry
PROC: HZ42ZZZ Group Counseling for Substance Abuse Treatment, Cognitive-Behavioral (ICD-10-PCS; principal; 2018-03-29)
DX: F14.20 Cocaine dependence, uncomplicated (principal); F17.210 Nicotine dependence, cigarettes, uncomplicated; F39 Unspecified mood [affective] disorder; F31.81 Bipolar II disorder; F19.24 Other psychoactive substance dependence with psychoactive substance-induced mood disorder; F19.282 Other psychoactive substance dependence with psychoactive substance-induced sleep disorder; Z21 Asymptomatic human immunodeficiency virus [HIV] infection status; B19.20 Unspecified viral hepatitis C without hepatic coma; R21 Rash and other nonspecific skin eruption; Z88.0 Allergy status to penicillin
CPT/HCPCS: 36415; 80053; 81003; 85027; 86593; J2794

== ENCOUNTER 2019-11-16 10:37 | Inpatient (IN) | payer OTHER ==
--- NOTE | 2019-11-16 10:44 | BHS.RME ---
Substance Use & Tx History - Substance Use History Alcohol Substance amount: 1 bacardi pint Frequency of use: Daily Substance route: Oral Date of Last Use: 11/16/19 Nicotine Substance amount: 1 pack Frequency of use: Daily Substance route: Smoking Date of Last Use: 11/16/19 Physical/Psych/Mental Status - Behavior General Behavior: Increased activity (restlessness, agitation) Eye Contact: Normal - Cooperativeness Cooperativeness: Cooperative - Thinking Thought Processes: Tight, Logical, Goal Directed - Physical Health Problems Is patient presently having any pain?: No Does patient presently have any injuries (include location): No Does patient currently have a fever: No Is patient : No CIWA Nausea/Vomitin Muscle Tremors: 4-Moderate,w/Arms Extend Anxiety: 4-Mod. Anxious/Guarded Agitation: 5 Paroxysmal Sweats: 1-Minimal Palms Moist Orientation: 1-Uncertain about Date Tacttile Disturbances: 0-None Auditory Disturbances: 0-None Visual Disturbances: 0-None Headache: 1-Very Mild CIWA-Ar Total Score: 19
--- NOTE | 2019-11-16 11:02 | HP ---
CIWA Score Nausea/Vomitin Muscle Tremors: 4-Moderate,w/Arms Extend Anxiety: 4-Mod. Anxious/Guarded Agitation: 5 Paroxysmal Sweats: 1-Minimal Palms Moist Orientation: 1-Uncertain about Date Tacttile Disturbances: 0-None Auditory Disturbances: 0-None Visual Disturbances: 0-None Headache: 1-Very Mild CIWA-Ar Total Score: 19 - Admission Criteria OASAS Guidelines: Admission for Medically Managed Detox: Requires at least one of the followin. CIWA greater than 12 2. Seizures within the past 24 hours 3. Delirium tremens within the past 24 hours 4. Hallucinations within the past 24 hours 5. Acute intervention needed for co occurring medical disorder 6. Acute intervention needed for co occurring psychiatric disorder 7. Severe withdrawal that cannot be handled at a lower level of care (continued vomiting, continued diarrhea, abnormal vital signs) requiring intravenous medication and/or fluids 8. Admitting History and Physical - Admission Chief Complaint: " I need help stopping drinking." History of Present Illness: 59 year old male with history of alcohol dependence with withdrawals. He was assessed in [facility] on 05/31/19 and at that time was only drinking 3 times a week. He has not progressed to drinking daily and at larger quantities. Substance Use & Tx History - Substance Use History Alcohol Substance amount: 1 bacardi pint Frequency of use: Daily Substance route: Oral Date of Last Use: 11/16/19 Patient admits to blackouts in the past, and endorses the need for an eye cupola liner daily to stave off withdrawals. Nicotine Substance amount: 1 pack Frequency of use: Daily Substance route: Smoking Date of Last Use: 11/16/19 PMH: HIV on Genvoya Psurg: None Psych: Depression ( non-compliant) Patient lives in [facility] in the [place]. He has not legal problems. CALEB=0.014 CIWA=19 Patient now meets criteria for detox as he has a poor environment for recovery, lives in a building infested with drugs and alcohol and other users. In addition, he has medical and psychiatric co-morbidities. History Source: Patient Limitations to Obtaining History: No Limitations - Past Medical History Infectious Disease: Yes: HIV - Past Surgical History Past Surgical History: Yes: None - Smoking History Smoking history: Current every day smoker Have you smoked in the past 12 months: Yes Aproximately how many cigarettes per day: 20 - Alcohol/Substance Use Hx Alcohol Use: Yes (Stopped in 1994) History of Substance Use: reports: Cocaine - Social History Usual Living Arrangement: Yes: Alone Do you think of yourself as: Straight/Heterosexual ADL: Independent Occupation: unemployed SSI disability History of Recent Travel: No Admission ROS S - HPI Allergies/Adverse Reactions: Allergies Allergy/AdvReac Type Severity Reaction Status Date / Time penicillin G AdvReac Rash Verified 03/29/18 17:45 Exam Limitations: No Limitations - Ebola screening Have you traveled outside of the country in the last 21 days: No Have you had contact with anyone from an Ebola affected area: No Have you been sick,other than usual withdrawal symptoms: No Do you have a fever: No - Review of Systems Constitutional: Chills, Diaphoresis, Unintentional Wgt. Loss EENT: reports: No Symptoms Reported Respiratory: reports: No Symptoms reported Cardiac: reports: No Symptoms Reported GI: reports: No Symptoms Reported : reports: No Symptoms Reported Musculoskeletal: reports: No Symptoms Reported Integumentary: reports: No Symptoms Reported Neuro: reports: No Symptoms reported Endocrine: reports: No Symptoms Reported Hematology: reports: No Symptoms Reported Psychiatric: reports: Judgement Intact, Mood/Affect Appropiate, Orientated x3, Agitated, Anxious Other Systems: Reviewed and Negative Patient History - Patient Medical History Hx Anemia: No Hx Asthma: No Hx Chronic Obstructive Pulmonary Disease (COPD): No Hx Cancer: No Hx Cardiac Disorders: No Hx Congestive Heart Failure: No Hx Hypertension: No Hx Hypercholesterolemia: No Hx Pacemaker: No HX Cerebrovascular Accident: No Hx Seizures: No Hx Dementia: No Hx Diabetes: No Hx Gastrointestinal Disorders: No Hx Liver Disease: No Hx Genitourinary Disorders: No Hx Sexually Transmitted Disorders: No Hx Renal Disease (ESRD): No Hx Thyroid Disease: No Hx Human Immunodeficiency Virus (HIV): Yes (2010) Hx Hepatitis C: Yes (TREATED) Hx Depression: Yes Hx Suicide Attempt: No Hx Bipolar Disorder: No Hx Schizophrenia: No - Patient Surgical History Past Surgical History: Yes Hx Neurologic Surgery: No Hx Cataract Extraction: No Hx Cardiac Surgery: No Hx Lung Surgery: No Hx Breast Surgery: No Hx Breast Biopsy: No Hx Abdominal Surgery: No Hx Appendectomy: No Hx Cholecystectomy: No Hx Genitourinary Surgery: No Hx Section: No Hx Orthopedic Surgery: No Other Surgical History: fx, left mandible in 1988 Anesthesia Reaction: No - PPD History Previous Implant?: Yes Documented Results: Negative w/o proof Implanted On Prior [facility] Admission?: Yes Date: 10/29/17 Results: 0 mm PPD to be Administered?: Yes - Smoking Cessation Smoking history: Current every day smoker Have you smoked in the past 12 months: Yes Aproximately how many cigarettes per day: 20 Cigars Per Day: 0 Hx Chewing Tobacco Use: No Initiated information on smoking cessation: Yes 'Breaking Loose' booklet given: 11/16/19 - Substances abused Alcohol Substance route: Oral Frequency: Daily Amount used: 1 pint baccardi Age of first use: 39 Date of last use: 11/16/19 Crack Substance route: Smoking Frequency: Daily Amount used: $100 per week Age of first use: 39 Date of last use: 11/15/19 Admission Physical Exam BHS - Physical General Appearance: Yes: Alcohol on Breath, Thin, Tremorous, Irritable, Sweating, Anxious HEENTM: Yes: EOMI, Hearing grossly Normal, Normal ENT Inspection, Normocephalic, Normal Voice, AMARJIT, Pharynx Normal, Tm's normal Respiratory: Yes: Chest Non-Tender, Lungs Clear, Normal Breath Sounds, No Respiratory Distress, No Accessory Muscle Use Neck: Yes: No masses,lesions,Nodules, Supple, Trachea in good position Breast: Yes: Within Normal Limits Cardiology: Yes: Regular Rhythm, Regular Rate, S1, S2 Abdominal: Yes: Normal Bowel Sounds, Non Tender, Flat, Soft Genitourinary: Yes: Within Normal Limits Back: Yes: Normal Inspection Musculoskeletal: Yes: full range of Motion, Gait Steady, Pelvis Stable Extremities: Yes: Normal Capillary Refill, Normal Inspection, Normal Range of Motion, Non-Tender Neurological: Yes: project manager interior design II-XII NML intact, Fully Oriented, Alert, Motor Strength 5/5, Normal Mood/Affect, Normal Response Integumentary: Yes: Normal Color, Dry, Warm Lymphatic: Yes: Within Normal Limits - Diagnostic (1) Substance-induced sleep disorder Current Visit: Yes Status: Acute (2) Cocaine dependence Current Visit: Yes Status: Chronic Qualifiers: Substance use status: uncomplicated Qualified Code(s): F14.20 - Cocaine dependence, uncomplicated (3) HIV (human immunodeficiency virus infection) Current Visit: Yes Status: Chronic Comment: Recommend the patient to have medication brought in for rehab stay (4) Nicotine dependence Current Visit: Yes Status: Chronic Qualifiers: Nicotine product type: cigarettes Substance use status: uncomplicated Qualified Code(s): F17.210 - Nicotine dependence, cigarettes, uncomplicated (5) Weight loss Current Visit: Yes Status: Chronic (6) Depression (emotion) Current Visit: Yes Status: Suspected Qualifiers: Depression Type: dysthymia Qualified Code(s): F34.1 - Dysthymic disorder (7) Hepatitis C Current Visit: Yes Status: Resolved Qualifiers: Viral hepatitis chronicity: unspecified Hepatic coma status: without hepatic coma Qualified Code(s): B19.20 - Unspecified viral hepatitis C without hepatic coma (8) Bipolar II disorder Current Visit: Yes Status: Ruled-out Cleared for Admission [facility] - Detox or Rehab [facility] Level of Care: Medically Managed Detox Regimen/Protocol: Librium Claeared for Rehab Admission: No Screened but not Admitted - Documentation of Visit Screened but not Admitted: No Breathalyzer - Breathalyzer Breathalyzer: 0.014 Vital Signs - Vital Signs Vital signs refused: No Temperature: 97.4 F Temperature source: Oral Pulse Rate: 79 Respiratory Rate: 18 Blood Pressure: 104/68 BP Location: Left Arm Blood Pressure position: Sitting - Height Height: 5 ft 8 in - Weight Weight: 108 lb Weight measurement method: Standing scale - BMI Body Mass Index (BMI): 16.4 - Bowel Function Bowel Movement: No Urine Drug Screen - Results Urine drug screen results: LYNN-Cocaine, BZO-Benzodiazepines Inpatient Rehab Admission - Rehab Decision to Admit Inpatient rehab admission?: No
[2019-11-16 11:05] VITALS: BMI 16.4
[2019-11-16] MEDS ORDERED: ACETAMINOPHEN 325 MG TABLET (FP) PO PRN ×2 (11:14)
[2019-11-16] MEDS ORDERED: chlordiazePOXIDE HCL 25 MG CAPSULE PO PRN (11:14)
[2019-11-16] MEDS ORDERED: MENTHOL/PHENOL 1 EACH UD MM PRN (11:14)
[2019-11-16] MEDS ORDERED: IBUPROFEN 400 MG TABLET (FP) PO PRN (11:14)
[2019-11-16] MEDS ORDERED: BISMUTH SUBSALICYLATE 524 MG/30 ML UD PO PRN (11:14)
[2019-11-16] MEDS ORDERED: NICOTINE POLACRILEX 2 MG GUM BUC PRN (11:14)
[2019-11-16] MEDS ORDERED: MAGNESIUM HYDROX 2400MG/30ML ORAL SUSPENSION 30 ML CUP PO PRN (11:14)
[2019-11-16] MEDS ORDERED: MAG HYDROX/AL HYDROX/SIMETH 30 ML UNIT-DOSE CUP PO PRN (11:14)
[2019-11-16] MEDS ORDERED: METHOCARBAMOL 500 MG TABLET PO PRN (11:14)
[2019-11-16] MEDS ORDERED: MAGNESIUM CITRATE 300 ML BOTTLE PO PRN (11:14)
[2019-11-16] MEDS ORDERED: ONDANSETRON *ODT* 4 MG TABLET SL ONE (12:00)
[2019-11-16] MEDS: chlordiazePOXIDE HCL 25 MG CAPSULE PO SCH ×3 (14:13→22:31)
[2019-11-16] MEDS: PRENATAL VITAMINS W/ FOLIC ACID TABLET (FP) PO SCH (14:16)
[2019-11-16] MEDS: NICOTINE 7 MG/24 HOURS TOPICAL PATCH TD SCH (14:18)
[2019-11-16] MEDS: hydrOXYzine PAMOATE 25 MG CAPSULE (FP) PO SCH ×3 (14:19→22:32)
[2019-11-16 15:00] LABS: HEMATOCRIT 42.7 % (35.4-49); HEMOGLOBIN 14.3 GM/dL (11.7-16.9); MCH 32.6 pg (25.7-33.7); MCHC 33.5 g/dl (32.0-35.9); MEAN CELL VOLUME 97.5 fl (80-96); MEAN PLT VOLUME 9.3 fl (7.5-11.1); PLATELET COUNT 132 K/MM3 (134-434); RBC 4.38 M/mm3 (4.00-5.60); RDW 14.6 % (11.9-15.9); WHITE BLOOD COUNT 4.1 K/mm3 (4.0-10.0)
[2019-11-16 15:15] LABS: ALBUMIN 3.6 g/dl (3.4-5.0); BILIRUBIN,TOTAL 0.4 mg/dL (0.2-1); BLOOD UREA NITROGEN 15.5 mg/dL (7-18); CALCIUM 8.9 mg/dL (8.5-10.1); CREATININE 1.5 mg/dL (0.55-1.3); POTASSIUM 3.5 mmol/L (3.5-5.1); TOT PROT 7.4 g/dl (6.4-8.2)
--- NOTE | 2019-11-16 17:30 | CONSULT ---
[facility] Psychiatric Consult - Data Date of interview: 11/16/19 Admission source: [facility] Identifying data: Revisit to [facility] and admission to [address] [place] [address] for this 59 y/o Hospanic male self-referred for detoxification treatment. KELLY issues : alcohol, crack/cocaine, nicotine. Patient is single, no dependents, domiciled, unemployed and supported on SSI benefits. Substance Abuse History: Discussed with the patient. KELLY profile as follows : Smoking history: Current every day smoker. Have you smoked in the past 12 months: Yes. Aproximately how many cigarettes per day: 20. Cigars Per Day: 0. Hx Chewing Tobacco Use: No. Initiated information on smoking cessation: Yes. 'Breaking Loose' booklet given: 11/16/19. - Substances abused. Alcohol. Substance route: Oral. Frequency: Daily. Amount used: 1 pint baccardi. Age of first use: 39. Date of last use: 11/16/19. Crack. Substance route: Smoking. Frequency: Daily. Amount used: $100 per week. Age of first use: 39. Date of last use: 11/15/19. Alcohol. Substance amount: 1 bacardi pint. Frequency of use: Daily. Substance route: Oral. Date of Last Use: 11/16/19. Patient admits to blackouts in the past, and endorses the need for an eye trichologist daily to stave off withdrawals. Nicotine. Substance amount: 1 pack. Frequency of use: Daily. Substance route: Smoking. Date of Last Use: 11/16/19 Medical History: Medical history is remarkable for HIV infection, hepatitis C and past surgery for fracture of left mandible. Noted report of allergy to penicillins. Psychiatric History: Patient is an uncooperative historian. History taken from existing records ([facility]). Patient has been diagnosed with MDD (past psychiatric hospitalization : unclear). As per records, until July 2017, Mr Mukherjee received psychiatric outpatient services at [facility] (an affiliate of [facility]) and managed with risperdal 1 mg/hs. In this interview, he reports current care with lexapro + risperdal (no recall of doses). No contact with psychiatric OPD care providers. Patient denies history of suicide attempts. Physical/Sexual Abuse/Trauma History: Not discussed (patient uncooperative). Additional Comment: Urine drug screen results: LYNN-Cocaine, BZO-Benzodiazepines. Noted. Psychiatric Findings - Problem List ([place] 1, 2,3) (1) Alcohol use disorder Current Visit: Yes Status: Chronic (2) Cocaine dependence Current Visit: Yes Status: Chronic Qualifiers: Substance use status: uncomplicated Qualified Code(s): F14.20 - Cocaine dependence, uncomplicated (3) Nicotine dependence Current Visit: Yes Status: Chronic Qualifiers: Nicotine product type: cigarettes Substance use status: uncomplicated Qualified Code(s): F17.210 - Nicotine dependence, cigarettes, uncomplicated (4) Substance induced mood disorder Current Visit: Yes Status: Chronic (5) History of bipolar disorder Current Visit: Yes Status: Chronic (6) Non-compliance Current Visit: Yes Status: Chronic - Initial Treatment Plan Initial Treatment Plan: Psychoeducation. Sleep hygiene. Detoxification. Resume, at patient's request : risperdal 0.5 mg po bid. Side effects/benefits discussed with the patient (risks of abnormal involuntary movements, cardiovascular adverse events, endocrine complications such as galactorhea + gynecomastia + sexual impotence, neuroleptic malignant syndrome). Consent (verbal) granted to MD. Pizano.
[2019-11-16] MEDS: risperiDONE 0.5 MG TABLET PO SCH (22:31)
[2019-11-16] MEDS: THIAMINE HCL 100 MG TABLET (FP) PO SCH (22:31)
[2019-11-16] MEDS: MELATONIN 5 MG TABLETS PO SCH (22:31)
[2019-11-17] MEDS: chlordiazePOXIDE HCL 25 MG CAPSULE PO SCH ×4 (06:02→22:42)
[2019-11-17] MEDS: hydrOXYzine PAMOATE 25 MG CAPSULE (FP) PO SCH ×5 (06:03→22:42)
[2019-11-17] MEDS: PRENATAL VITAMINS W/ FOLIC ACID TABLET (FP) PO SCH (10:28)
[2019-11-17] MEDS: risperiDONE 0.5 MG TABLET PO SCH ×2 (10:28→22:42)
[2019-11-17] MEDS: NICOTINE 7 MG/24 HOURS TOPICAL PATCH TD SCH (10:28)
[2019-11-17] MEDS: ELVITEG/COB/EMTRI/TENOF (GENVOYA) TABLET (NF) PO SCH (11:46)
--- NOTE | 2019-11-17 13:23 | PN ---
[facility] CIWA - CIWA Score Nausea/Vomitin-No Nausea/No Vomiting Muscle Tremors: 2 Anxiety: 3 Agitation: 0-Normal Activity Paroxysmal Sweats: 3 Orientation: 0-Oriented Tacttile Disturbances: 1-Very Mild Itch/Numbness Auditory Disturbances: 0-None Visual Disturbances: 0-None Headache: 2-Mild CIWA-Ar Total Score: 11 S Progress Note (SOAP) Subjective: c/o anxiety, headache, sweats, and shakes. Objective: 11/17/19 13:22 Vital Signs 11/17/19 11/17/19 06:52 09:03 Temperature 97.3 F L 96.9 F L Pulse Rate 59 L 60 Respiratory 18 18 Rate Blood Pressure 99/53 L 94/51 L O2 Sat by Pulse 95 Oximetry (%) Laboratory Last Values WBC 4.1 K/mm3 (4.0-10.0) 11/16/19 11:25 RBC 4.38 M/mm3 (4.00-5.60) 11/16/19 11:25 Hgb 14.3 GM/dL (11.7-16.9) 11/16/19 11:25 Hct 42.7 % (35.4-49) 11/16/19 11:25 MCV 97.5 fl (80-96) H 11/16/19 11:25 MCH 32.6 pg (25.7-33.7) 11/16/19 11:25 MCHC 33.5 g/dl (32.0-35.9) 11/16/19 11:25 RDW 14.6 % (11.9-15.9) 11/16/19 11:25 Plt Count 132 K/MM3 (134-434) L D 11/16/19 11:25 MPV 9.3 fl (7.5-11.1) 11/16/19 11:25 Sodium 141 mmol/L (136-145) 11/16/19 11:25 Potassium 3.5 mmol/L (3.5-5.1) 11/16/19 11:25 Chloride 106 mmol/L (98-107) 11/16/19 11:25 Carbon Dioxide 29 mmol/L (21-32) 11/16/19 11:25 Anion Gap 5 MMOL/L (8-16) L 11/16/19 11:25 BUN 15.5 mg/dL (7-18) 11/16/19 11:25 Creatinine 1.5 mg/dL (0.55-1.3) H 11/16/19 11:25 Est GFR (CKD-EPI)AfAm 58.63 11/16/19 11:25 Est GFR (CKD-EPI)NonAf 50.59 11/16/19 11:25 Random Glucose 110 mg/dL (74-106) H 11/16/19 11:25 Calcium 8.9 mg/dL (8.5-10.1) 11/16/19 11:25 Total Bilirubin 0.4 mg/dL (0.2-1) 11/16/19 11:25 AST 20 U/L (15-37) 11/16/19 11:25 ALT 21 U/L (13-61) 11/16/19 11:25 Alkaline Phosphatase 73 U/L (45-117) 11/16/19 11:25 Total Protein 7.4 g/dl (6.4-8.2) 11/16/19 11:25 Albumin 3.6 g/dl (3.4-5.0) 11/16/19 11:25 Syphilis Serology Non-reactive (NONREACTIVE) 11/16/19 11:25 COVID-19 (KARLENE) Not detected (Not Detected) 11/16/19 12:00 Labs noted. Assessment: 11/17/19 13:22 AOX3, in no acute respiratory distress. Full ROM, ambulating in the unit. Withdrawal symptoms. Plan: continue detox.
[2019-11-17] MEDS: THIAMINE HCL 100 MG TABLET (FP) PO SCH (22:42)
[2019-11-17] MEDS: MELATONIN 5 MG TABLETS PO SCH (22:42)
[2019-11-18] MEDS: hydrOXYzine PAMOATE 25 MG CAPSULE (FP) PO SCH ×2 (06:25→10:15)
[2019-11-18] MEDS: chlordiazePOXIDE HCL 25 MG CAPSULE PO SCH ×2 (06:26→10:16)
[2019-11-18] MEDS: ELVITEG/COB/EMTRI/TENOF (GENVOYA) TABLET (NF) PO SCH (10:13)
[2019-11-18] MEDS: PRENATAL VITAMINS W/ FOLIC ACID TABLET (FP) PO SCH (10:13)
[2019-11-18] MEDS: NICOTINE 7 MG/24 HOURS TOPICAL PATCH TD SCH (10:13)
--- NOTE | 2019-11-18 11:50 | PN ---
S CIWA - CIWA Score Nausea/Vomitin-Mild Nausea/No Vomiting Muscle Tremors: 2 Anxiety: 2 Agitation: 0-Normal Activity Paroxysmal Sweats: 1-Minimal Palms Moist Orientation: 0-Oriented Tacttile Disturbances: 1-Very Mild Itch/Numbness Auditory Disturbances: 0-None Visual Disturbances: 2-Mild Sensitivity Headache: 1-Very Mild CIWA-Ar Total Score: 10 S Progress Note (SOAP) Subjective: 59 years old male was admitted on 11/16/19 for alcohol withdrawal sx management treating with librium detox regiment mr monaco seems sleepy and tired discontinue vistaril and adjusting librium regiment Objective: 11/18/19 11:50 Vital Signs - 24 hr 11/17/19 11/17/19 11/17/19 12:59 17:12 20:57 Temperature 96.9 F L 97.7 F 97.8 F Pulse Rate 72 82 64 Respiratory 18 16 18 Rate Blood Pressure 96/68 112/78 122/69 O2 Sat by Pulse 96 95 Oximetry (%) 11/18/19 11/18/19 06:24 08:50 Temperature 97.3 F L 96.9 F L Pulse Rate 66 70 Respiratory 16 18 Rate Blood Pressure 117/73 108/67 O2 Sat by Pulse 98 98 Oximetry (%) Laboratory Tests 11/16/19 11/16/19 11/16/19 11:25 11:25 11:25 WBC 4.1 RBC 4.38 Hgb 14.3 Hct 42.7 MCV 97.5 H MCH 32.6 MCHC 33.5 RDW 14.6 Plt Count 132 L D MPV 9.3 Sodium 141 Potassium 3.5 Chloride 106 Carbon Dioxide 29 Anion Gap 5 L BUN 15.5 Creatinine 1.5 H Est GFR (CKD-EPI)AfAm 58.63 Est GFR (CKD-EPI)NonAf 50.59 Random Glucose 110 H Calcium 8.9 Total Bilirubin 0.4 AST 20 ALT 21 Alkaline Phosphatase 73 Total Protein 7.4 Albumin 3.6 Syphilis Serology Non-reactive COVID-19 (KARLENE) 11/16/19 12:00 WBC RBC Hgb Hct MCV MCH MCHC RDW Plt Count MPV Sodium Potassium Chloride Carbon Dioxide Anion Gap BUN Creatinine Est GFR (CKD-EPI)AfAm Est GFR (CKD-EPI)NonAf Random Glucose Calcium Total Bilirubin AST ALT Alkaline Phosphatase Total Protein Albumin Syphilis Serology COVID-19 (KARLENE) Not detected lab noted Assessment: 11/18/19 11:51 alcohol withdrawal Plan: librium regiment
[2019-11-18] MEDS: risperiDONE 0.5 MG TABLET PO SCH ×2 (13:46→22:44)
[2019-11-18] MEDS: chlordiazePOXIDE HCL 10 MG CAPSULE PO SCH ×2 (18:17→22:44)
[2019-11-18] MEDS: THIAMINE HCL 100 MG TABLET (FP) PO SCH (22:44)
[2019-11-18] MEDS: MELATONIN 5 MG TABLETS PO SCH (22:44)
[2019-11-19] MEDS ORDERED: chlordiazePOXIDE HCL 10 MG CAPSULE PO PRN
[2019-11-19] MEDS ORDERED: chlordiazePOXIDE HCL 10 MG CAPSULE PO SCH (05:00)
[2019-11-19] MEDS: chlordiazePOXIDE 5 MG CAPSULE PO SCH ×4 (06:08→22:09)
[2019-11-19] MEDS: PRENATAL VITAMINS W/ FOLIC ACID TABLET (FP) PO SCH (10:17)
[2019-11-19] MEDS: ELVITEG/COB/EMTRI/TENOF (GENVOYA) TABLET (NF) PO SCH (10:17)
[2019-11-19] MEDS: risperiDONE 0.5 MG TABLET PO SCH ×2 (10:17→22:09)
[2019-11-19] MEDS: NICOTINE 7 MG/24 HOURS TOPICAL PATCH TD SCH (10:18)
--- NOTE | 2019-11-19 10:31 | PN ---
S CIWA - CIWA Score Nausea/Vomitin-No Nausea/No Vomiting Muscle Tremors: 1-None Visible, but [place] Anxiety: 1-Mildly Anxious Agitation: 0-Normal Activity Paroxysmal Sweats: No Perspiration Orientation: 0-Oriented Tacttile Disturbances: 3-Moderate Itch/Numb/Burn Auditory Disturbances: 0-None Visual Disturbances: 1-Very Mild Sensitivity Headache: 1-Very Mild CIWA-Ar Total Score: 7 BHS Progress Note (SOAP) Subjective: 59 years old male was admitted on 11/16/19 for alcohol withdrawal sx management treating with librium detox regiment feels tired encourage change position slowly use cane when ambulation Objective: 11/19/19 10:28 Vital Signs - 24 hr 11/18/19 11/18/19 11/18/19 12:50 16:46 20:35 Temperature 97.1 F L 97.3 F L 97.5 F L Pulse Rate 68 88 84 Respiratory 18 18 18 Rate Blood Pressure 100/64 114/77 107/72 O2 Sat by Pulse 98 97 Oximetry (%) 11/19/19 11/19/19 06:06 08:51 Temperature 98.1 F 99.1 F Pulse Rate 68 73 Respiratory 20 18 Rate Blood Pressure 112/78 121/82 O2 Sat by Pulse 98 Oximetry (%) Laboratory Tests 11/16/19 11/16/19 11/16/19 11:25 11:25 11:25 WBC 4.1 RBC 4.38 Hgb 14.3 Hct 42.7 MCV 97.5 H MCH 32.6 MCHC 33.5 RDW 14.6 Plt Count 132 L D MPV 9.3 Sodium 141 Potassium 3.5 Chloride 106 Carbon Dioxide 29 Anion Gap 5 L BUN 15.5 Creatinine 1.5 H Est GFR (CKD-EPI)AfAm 58.63 Est GFR (CKD-EPI)NonAf 50.59 Random Glucose 110 H Calcium 8.9 Total Bilirubin 0.4 AST 20 ALT 21 Alkaline Phosphatase 73 Total Protein 7.4 Albumin 3.6 Syphilis Serology Non-reactive COVID-19 (KARLENE) 11/16/19 12:00 WBC RBC Hgb Hct MCV MCH MCHC RDW Plt Count MPV Sodium Potassium Chloride Carbon Dioxide Anion Gap BUN Creatinine Est GFR (CKD-EPI)AfAm Est GFR (CKD-EPI)NonAf Random Glucose Calcium Total Bilirubin AST ALT Alkaline Phosphatase Total Protein Albumin Syphilis Serology COVID-19 (KARLENE) Not detected lab noted 11/19/19 10:30 low temp ua ordered Assessment: 11/19/19 10:30 alcohol withdrawal Plan: librium regiment
[2019-11-19] MEDS: SULFAMETHOXAZOLE/TRIMETHOPRIM 800MG/160MG D.S. TABLET PO SCH (10:46)
[2019-11-19] MEDS: MELATONIN 5 MG TABLETS PO SCH (22:09)
[2019-11-19] MEDS: THIAMINE HCL 100 MG TABLET (FP) PO SCH (22:09)
[2019-11-20] MEDS ORDERED: chlordiazePOXIDE HCL 10 MG CAPSULE PO SCH ×2 (05:00)
[2019-11-20] MEDS ORDERED: chlordiazePOXIDE 5 MG CAPSULE PO SCH (05:04)
--- NOTE | 2019-11-20 09:29 | PN ---
S CIWA - CIWA Score Nausea/Vomitin-No Nausea/No Vomiting Muscle Tremors: 1-None Visible, but [place] Anxiety: 1-Mildly Anxious Agitation: 1-Slight > Activity Paroxysmal Sweats: No Perspiration Orientation: 0-Oriented Tacttile Disturbances: 0-None Auditory Disturbances: 0-None Visual Disturbances: 2-Mild Sensitivity Headache: 0-None Present CIWA-Ar Total Score: 5 BHS Progress Note (SOAP) Subjective: 59 years old male was admitted on 11/16/19 for alcohol withdrawal sx management treating with librium detox regiment feels better today less tremor mild anxiety no low grade fever ambulating with cane slow steady mr monaco rather returning to [facility] for medical mental and addiction issues Objective: 11/20/19 09:30 Vital Signs - 24 hr 11/19/19 11/19/19 11/19/19 12:57 16:48 22:34 Temperature 97.2 F L 97.7 F 97.6 F Pulse Rate 81 71 79 Respiratory 18 16 16 Rate Blood Pressure 86/58 L 100/70 107/70 O2 Sat by Pulse 95 95 100 Oximetry (%) 11/20/19 05:27 Temperature 98.6 F Pulse Rate 68 Respiratory 18 Rate Blood Pressure 93/59 L O2 Sat by Pulse 95 Oximetry (%) Laboratory Tests 11/16/19 11/16/19 11/16/19 11:25 11:25 11:25 WBC 4.1 RBC 4.38 Hgb 14.3 Hct 42.7 MCV 97.5 H MCH 32.6 MCHC 33.5 RDW 14.6 Plt Count 132 L D MPV 9.3 Sodium 141 Potassium 3.5 Chloride 106 Carbon Dioxide 29 Anion Gap 5 L BUN 15.5 Creatinine 1.5 H Est GFR (CKD-EPI)AfAm 58.63 Est GFR (CKD-EPI)NonAf 50.59 Random Glucose 110 H Calcium 8.9 Total Bilirubin 0.4 AST 20 ALT 21 Alkaline Phosphatase 73 Total Protein 7.4 Albumin 3.6 Syphilis Serology Non-reactive COVID-19 (KARLENE) 11/16/19 12:00 WBC RBC Hgb Hct MCV MCH MCHC RDW Plt Count MPV Sodium Potassium Chloride Carbon Dioxide Anion Gap BUN Creatinine Est GFR (CKD-EPI)AfAm Est GFR (CKD-EPI)NonAf Random Glucose Calcium Total Bilirubin AST ALT Alkaline Phosphatase Total Protein Albumin Syphilis Serology COVID-19 (KARLENE) Not detected lab will continue to be evaluated at aftercare facility Assessment: 11/20/19 09:35 alcohol withdrawal hiv Plan: librium regiment
[2019-11-20] MEDS: risperiDONE 0.5 MG TABLET PO SCH ×2 (10:45→22:18)
[2019-11-20] MEDS: PRENATAL VITAMINS W/ FOLIC ACID TABLET (FP) PO SCH (10:45)
[2019-11-20] MEDS: ELVITEG/COB/EMTRI/TENOF (GENVOYA) TABLET (NF) PO SCH (10:45)
[2019-11-20] MEDS: SULFAMETHOXAZOLE/TRIMETHOPRIM 800MG/160MG D.S. TABLET PO SCH (10:45)
[2019-11-20] MEDS: NICOTINE 7 MG/24 HOURS TOPICAL PATCH TD SCH (10:47)
[2019-11-20 16:07] LABS: URINE APPEARANCE CLEAR; URINE BILIRUBIN NEGATIVE (NEGATIVE); URINE COLOR YELLOW; URINE GLUCOSE (UA) NEGATIVE (NEGATIVE); URINE KETONE NEGATIVE (NEGATIVE); URINE LEUK ESTERASE NEGATIVE (NEGATIVE); URINE NITRITE NEGATIVE (NEGATIVE); URINE PROTEIN NEGATIVE (NEGATIVE); URINE UROBILINOGEN 0.2 mg/dL (0.2-1.0)
[2019-11-20] MEDS: THIAMINE HCL 100 MG TABLET (FP) PO SCH (22:18)
[2019-11-20] MEDS: MELATONIN 5 MG TABLETS PO SCH (22:19)
[2019-11-21] MEDS ORDERED: chlordiazePOXIDE HCL 10 MG CAPSULE PO ONE (05:00)
[2019-11-21] MEDS ORDERED: chlordiazePOXIDE 5 MG CAPSULE PO ONE (05:00)
[2019-11-21] MEDS: SULFAMETHOXAZOLE/TRIMETHOPRIM 800MG/160MG D.S. TABLET PO SCH (09:03)
[2019-11-21] MEDS: PRENATAL VITAMINS W/ FOLIC ACID TABLET (FP) PO SCH (09:03)
[2019-11-21] MEDS: risperiDONE 0.5 MG TABLET PO SCH (09:03)
[2019-11-21] MEDS: NICOTINE 7 MG/24 HOURS TOPICAL PATCH TD SCH (09:04)
[2019-11-21 09:05] VITALS: BP 96/68; PULSE 70; TEMP 96.8
[2019-11-21] MEDS: ELVITEG/COB/EMTRI/TENOF (GENVOYA) TABLET (NF) PO SCH (09:05)
--- NOTE | 2019-11-21 09:10 | DS ---
[facility] Detox Discharge Summary Admission Date: 11/16/19 Discharge Date: 11/21/19 - History Present History: Alcohol Dependence Additional Comments: 59 years old male admitted on 11/16/19 for alcohol withdrawal sx management treating with librium detox regiment seen by psychiatrist dl nicole mr monaco has completed the librium regiment and is tolerated well ambulating from room to bathroom to nurse station to counselor office without cane normal gaits and speed and well-balanced General Appearance: Yes: no Alcohol on Breath, Thin, mild Tremorous, not Irritable, no Sweating, less Anxious HEENTM: Yes: EOMI, Hearing grossly Normal, Normal ENT Inspection, Normocephalic, Normal Voice, AMARJIT, Pharynx Normal, Tm's normal Respiratory: Yes: Chest Non-Tender, Lungs Clear, Normal Breath Sounds, No Respiratory Distress, No Accessory Muscle Use Neck: Yes: No masses,lesions,Nodules, Supple, Trachea in good position Breast: Yes: Within Normal Limits Cardiology: Yes: Regular Rhythm, Regular Rate, S1, S2 Abdominal: Yes: Normal Bowel Sounds, Non Tender, Flat, Soft Genitourinary: Yes: Within Normal Limits Back: Yes: Normal Inspection Musculoskeletal: Yes: full range of Motion, Gait Steady, Pelvis Stable Extremities: Yes: Normal Capillary Refill, Normal Inspection, Normal Range of Motion, Non-Tender 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 - Physical Exam Results Vital Signs: Vital Signs Temperature 96.8 F L 11/21/19 08:46 Pulse Rate 70 11/21/19 08:46 Respiratory Rate 18 11/21/19 08:46 Blood Pressure 96/68 11/21/19 08:46 O2 Sat by Pulse Oximetry (%) 98 11/21/19 08:46 Pertinent Admission Physical Exam Findings: alcohol withdrawal Laboratory Tests 11/16/19 11/16/19 11/16/19 11:25 11:25 11:25 WBC 4.1 RBC 4.38 Hgb 14.3 Hct 42.7 MCV 97.5 H MCH 32.6 MCHC 33.5 RDW 14.6 Plt Count 132 L D MPV 9.3 Sodium 141 Potassium 3.5 Chloride 106 Carbon Dioxide 29 Anion Gap 5 L BUN 15.5 Creatinine 1.5 H Est GFR (CKD-EPI)AfAm 58.63 Est GFR (CKD-EPI)NonAf 50.59 Random Glucose 110 H Calcium 8.9 Total Bilirubin 0.4 AST 20 ALT 21 Alkaline Phosphatase 73 Total Protein 7.4 Albumin 3.6 Urine Color Urine Appearance Urine pH Ur Specific [place] Urine Protein Urine Glucose (UA) Urine Ketones Urine Blood Urine Nitrite Urine Bilirubin Urine Urobilinogen Ur Leukocyte Esterase Syphilis Serology Non-reactive COVID-19 (KARLENE) 11/16/19 11/20/19 12:00 13:30 WBC RBC Hgb Hct MCV MCH MCHC RDW Plt Count MPV Sodium Potassium Chloride Carbon Dioxide Anion Gap BUN Creatinine Est GFR (CKD-EPI)AfAm Est GFR (CKD-EPI)NonAf Random Glucose Calcium Total Bilirubin AST ALT Alkaline Phosphatase Total Protein Albumin Urine Color Yellow Urine Appearance Clear Urine pH 6.0 Ur Specific [place] 1.020 Urine Protein Negative Urine Glucose (UA) Negative Urine Ketones Negative Urine Blood Negative Urine Nitrite Negative Urine Bilirubin Negative Urine Urobilinogen 0.2 Ur Leukocyte Esterase Negative Syphilis Serology COVID-19 (KARLENE) Not detected mr monaco will follow up with [facility] for glucose serum elevation - Treatment Hospital Course: Detox Protocol Followed, Detoxed Safely, Responded well, Discharged Condition Good, Rehab Referral Accepted Patient has Accepted a Rehab Referral to: [facility] - Medication Discharge Medications: Ambulatory Orders Elviteg/Cob/Emtri/Tenof Alafen [Genvoya (Non-Formulary)] 1 each PO DAILY 10/27/17 Multivitamin [Daily Multiple Vitamin] 1 each PO DAILY #20 tablet 11/09/17 Escitalopram Oxalate [Lexapro -] 10 mg PO DAILY 03/29/18 Hydrocortisone [Cortef -] 5 mg PO HS 03/29/18 Risperidone [Risperdal -] 1 mg PO HS #30 tablet 04/12/18 Ketoconazole 2% Cream 1 applic HS 11/16/19 Sulfamethoxazole/Trimethoprim 1 tab PO WEEKLY 11/16/19 - Diagnosis (1) Alcohol use disorder Current Visit: Yes Status: Acute (2) HIV (human immunodeficiency virus infection) Current Visit: Yes Status: Chronic Qualifiers: HIV symptom status: asymptomatic Qualified Code(s): Z21 - Asymptomatic human immunodeficiency virus [HIV] infection status (3) Nicotine dependence Current Visit: Yes Status: Acute Qualifiers: Nicotine product type: cigarettes Substance use status: in withdrawal Qualified Code(s): F17.213 - Nicotine dependence, cigarettes, with withdrawal (4) Substance induced mood disorder Current Visit: Yes Status: Suspected (5) Weight loss Current Visit: Yes Status: Chronic (6) Hepatitis C Current Visit: Yes Status: Chronic Qualifiers: Viral hepatitis chronicity: unspecified Hepatic coma status: without hepatic coma Qualified Code(s): B19.20 - Unspecified viral hepatitis C without hepatic coma - AMA Did Patient Leave Against Medical Advice: No CIWA Score - CIWA Score Nausea/Vomitin-No Nausea/No Vomiting Muscle Tremors: None Anxiety: 1-Mildly Anxious Agitation: 1-Slight > Activity Paroxysmal Sweats: No Perspiration Orientation: 0-Oriented Tacttile Disturbances: 0-None Auditory Disturbances: 0-None Visual Disturbances: 0-None Headache: 0-None Present CIWA-Ar Total Score: 2
== END 2019-11-21 09:31 | disposition home or self-care (01) | DRG 774 ==
LOC: YASAS 10:37 → Y3N 11:35
PROVIDERS: ADMIT Allergy & Immunology; ATTEND Allergy & Immunology
PROC: HZ2ZZZZ Detoxification Services for Substance Abuse Treatment (ICD-10-PCS; principal; 2019-11-16)
DX: F10.230 Alcohol dependence with withdrawal, uncomplicated (principal); F14.20 Cocaine dependence, uncomplicated; F17.210 Nicotine dependence, cigarettes, uncomplicated; F19.24 Other psychoactive substance dependence with psychoactive substance-induced mood disorder; F34.1 Dysthymic disorder; Z21 Asymptomatic human immunodeficiency virus [HIV] infection status; B19.20 Unspecified viral hepatitis C without hepatic coma; R73.9 Hyperglycemia, unspecified; R63.4 Abnormal weight loss; Z68.1 Body mass index [BMI] 19.9 or less, adult; Z86.59 Personal history of other mental and behavioral disorders; Z88.0 Allergy status to penicillin; Z91.19 Patient's noncompliance with other medical treatment and regimen; Z99.89 Dependence on other enabling machines and devices
CPT/HCPCS: 36415; 80053; 81003; 85027; 86780; Q0162; U0003

== ENCOUNTER 2020-04-21 09:07 | Inpatient (IN) | payer OTHER ==
[2020-04-21] MEDS ORDERED: ONDANSETRON *ODT* 4 MG TABLET SL PRN (11:22)
[2020-04-21] MEDS ORDERED: BISMUTH SUBSALICYLATE 524 MG/30 ML UD PO PRN (11:22)
[2020-04-21] MEDS ORDERED: METHOCARBAMOL 500 MG TABLET PO PRN (11:22)
[2020-04-21] MEDS ORDERED: MENTHOL/PHENOL 1 EACH UD MM PRN (11:22)
[2020-04-21] MEDS ORDERED: MAGNESIUM HYDROX 2400MG/30ML ORAL SUSPENSION 30 ML CUP PO PRN (11:22)
[2020-04-21] MEDS ORDERED: NICOTINE POLACRILEX 2 MG GUM BUC PRN (11:22)
[2020-04-21] MEDS ORDERED: ACETAMINOPHEN 325 MG TABLET (FP) PO PRN ×2 (11:22)
[2020-04-21] MEDS ORDERED: MAGNESIUM CITRATE 300 ML BOTTLE PO PRN (11:22)
[2020-04-21] MEDS ORDERED: IBUPROFEN 400 MG TABLET (FP) PO PRN (11:22)
[2020-04-21 11:23] VITALS: BMI 16.2
[2020-04-21] MEDS ORDERED: SULFAMETHOXAZOLE/TRIMETHOPRIM 800MG/160MG D.S. TABLET PO SCH (12:30)
[2020-04-21] MEDS: chlordiazePOXIDE HCL 25 MG CAPSULE PO SCH ×3 (13:38→22:57)
[2020-04-21] MEDS: NICOTINE 21 MG/24 HOURS TOPICAL PATCH TD SCH (13:38)
[2020-04-21] MEDS: hydrOXYzine PAMOATE 25 MG CAPSULE (FP) PO SCH ×3 (13:39→22:56)
[2020-04-21] MEDS: SULFAMETHOXAZOLE/TRIMETHOPRIM 800MG/160MG D.S. TABLET PO SCH (14:19)
[2020-04-21] MEDS: PRENATAL VITAMINS W/ FOLIC ACID TABLET (FP) PO SCH (14:19)
[2020-04-21 15:41] LABS: POTASSIUM 3.6 mmol/L (3.5-5.1)
[2020-04-21 15:48] LABS: HEMATOCRIT 39.6 % (35.4-49); HEMOGLOBIN 13.5 GM/dL (11.7-16.9); MCH 32.4 pg (25.7-33.7); MCHC 34.1 g/dl (32.0-35.9); MEAN CELL VOLUME 94.9 fl (80-96); MEAN PLT VOLUME 8.9 fl (7.5-11.1); PLATELET COUNT 129 K/MM3 (134-434); RBC 4.17 M/mm3 (4.00-5.60); RDW 14.3 % (11.9-15.9); WHITE BLOOD COUNT 3.5 K/mm3 (4.0-10.0)
[2020-04-21 15:51] LABS: CALCIUM 9.4 mg/dL (8.5-10.1)
[2020-04-21 15:52] LABS: ALBUMIN 3.5 g/dl (3.4-5.0); BLOOD UREA NITROGEN 19.3 mg/dL (7-18)
[2020-04-21 15:55] LABS: CREATININE 1.4 mg/dL (0.55-1.3)
[2020-04-21 15:56] LABS: BILIRUBIN,TOTAL 0.5 mg/dL (0.2-1)
[2020-04-21 15:57] LABS: TOT PROT 7.1 g/dl (6.4-8.2)
[2020-04-21] MEDS: chlordiazePOXIDE HCL 25 MG CAPSULE PO PRN ×2 (18:21→22:56)
[2020-04-21] MEDS: THIAMINE HCL 100 MG TABLET (FP) PO SCH (22:56)
[2020-04-21] MEDS: risperiDONE 1 MG TABLET PO SCH (22:56)
[2020-04-21] MEDS: MELATONIN 5 MG TABLETS PO SCH (22:57)
[2020-04-21] MEDS: KETOCONAZOLE 2% TOPICAL CREAM 15 GM TUBE TP SCH (23:00)
[2020-04-21] MEDS: HYDROCORTISONE 5 MG TABLET PO SCH (23:55)
[2020-04-22] MEDS: chlordiazePOXIDE HCL 25 MG CAPSULE PO SCH ×4 (05:42→23:01)
[2020-04-22] MEDS: hydrOXYzine PAMOATE 25 MG CAPSULE (FP) PO SCH ×5 (05:43→22:11)
[2020-04-22] MEDS: ELVITEG/COB/EMTRI/TENOF (GENVOYA) TABLET (NF) PO SCH (08:15)
[2020-04-22] MEDS ORDERED: AZITHROMYCIN 600 MG TABLET PO SCH (10:00)
[2020-04-22] MEDS: PRENATAL VITAMINS W/ FOLIC ACID TABLET (FP) PO SCH (10:10)
[2020-04-22] MEDS: NICOTINE 21 MG/24 HOURS TOPICAL PATCH TD SCH (10:11)
[2020-04-22] MEDS: ESCITALOPRAM OXALATE 10 MG TABLET PO SCH (10:11)
[2020-04-22] MEDS: risperiDONE 1 MG TABLET PO SCH (22:10)
[2020-04-22] MEDS: chlordiazePOXIDE HCL 25 MG CAPSULE PO PRN (22:10)
[2020-04-22] MEDS: THIAMINE HCL 100 MG TABLET (FP) PO SCH (22:10)
[2020-04-22] MEDS: KETOCONAZOLE 2% TOPICAL CREAM 15 GM TUBE TP SCH (22:11)
[2020-04-22] MEDS: MELATONIN 5 MG TABLETS PO SCH (22:12)
[2020-04-22] MEDS: HYDROCORTISONE 5 MG TABLET PO SCH (22:12)
[2020-04-22] MEDS: MAG HYDROX/AL HYDROX/SIMETH 30 ML UNIT-DOSE CUP PO PRN (22:13)
[2020-04-23] MEDS: chlordiazePOXIDE HCL 25 MG CAPSULE PO SCH ×4 (05:07→23:01)
[2020-04-23] MEDS: hydrOXYzine PAMOATE 25 MG CAPSULE (FP) PO SCH (05:09)
[2020-04-23] MEDS ORDERED: hydrOXYzine PAMOATE 25 MG CAPSULE (FP) PO PRN (09:27)
[2020-04-23] MEDS: PRENATAL VITAMINS W/ FOLIC ACID TABLET (FP) PO SCH (10:09)
[2020-04-23] MEDS: SULFAMETHOXAZOLE/TRIMETHOPRIM 800MG/160MG D.S. TABLET PO SCH (10:09)
[2020-04-23] MEDS: ELVITEG/COB/EMTRI/TENOF (GENVOYA) TABLET (NF) PO SCH (10:09)
[2020-04-23] MEDS: ESCITALOPRAM OXALATE 10 MG TABLET PO SCH (10:09)
[2020-04-23] MEDS: NICOTINE 21 MG/24 HOURS TOPICAL PATCH TD SCH (10:09)
[2020-04-23] MEDS: risperiDONE 1 MG TABLET PO SCH (22:50)
[2020-04-23] MEDS: HYDROCORTISONE 5 MG TABLET PO SCH (22:51)
[2020-04-23] MEDS: MELATONIN 5 MG TABLETS PO SCH (22:51)
[2020-04-23] MEDS: KETOCONAZOLE 2% TOPICAL CREAM 15 GM TUBE TP SCH (22:53)
[2020-04-23] MEDS: THIAMINE HCL 100 MG TABLET (FP) PO SCH (22:53)
[2020-04-24] MEDS ORDERED: chlordiazePOXIDE HCL 10 MG CAPSULE PO PRN
[2020-04-24] MEDS: chlordiazePOXIDE HCL 10 MG CAPSULE PO SCH ×4 (05:11→22:58)
[2020-04-24] MEDS: ELVITEG/COB/EMTRI/TENOF (GENVOYA) TABLET (NF) PO SCH (07:12)
[2020-04-24] MEDS: ESCITALOPRAM OXALATE 10 MG TABLET PO SCH (11:13)
[2020-04-24] MEDS: NICOTINE 21 MG/24 HOURS TOPICAL PATCH TD SCH (11:13)
[2020-04-24] MEDS: PRENATAL VITAMINS W/ FOLIC ACID TABLET (FP) PO SCH (11:13)
[2020-04-24] MEDS: THIAMINE HCL 100 MG TABLET (FP) PO SCH (21:57)
[2020-04-24] MEDS: KETOCONAZOLE 2% TOPICAL CREAM 15 GM TUBE TP SCH (21:58)
[2020-04-24] MEDS: HYDROCORTISONE 5 MG TABLET PO SCH (21:58)
[2020-04-24] MEDS: risperiDONE 1 MG TABLET PO SCH (21:58)
[2020-04-24] MEDS: MELATONIN 5 MG TABLETS PO SCH (22:00)
[2020-04-25] MEDS: chlordiazePOXIDE HCL 10 MG CAPSULE PO SCH ×2 (05:14→17:39)
[2020-04-25] MEDS: SULFAMETHOXAZOLE/TRIMETHOPRIM 800MG/160MG D.S. TABLET PO SCH (10:16)
[2020-04-25] MEDS: ESCITALOPRAM OXALATE 10 MG TABLET PO SCH (10:16)
[2020-04-25] MEDS: ELVITEG/COB/EMTRI/TENOF (GENVOYA) TABLET (NF) PO SCH (10:16)
[2020-04-25] MEDS: NICOTINE 21 MG/24 HOURS TOPICAL PATCH TD SCH (10:17)
[2020-04-25] MEDS: PRENATAL VITAMINS W/ FOLIC ACID TABLET (FP) PO SCH (10:17)
[2020-04-25] MEDS: MAG HYDROX/AL HYDROX/SIMETH 30 ML UNIT-DOSE CUP PO PRN (20:48)
[2020-04-25] MEDS: MELATONIN 5 MG TABLETS PO SCH (22:11)
[2020-04-25] MEDS: KETOCONAZOLE 2% TOPICAL CREAM 15 GM TUBE TP SCH (22:11)
[2020-04-25] MEDS: THIAMINE HCL 100 MG TABLET (FP) PO SCH (22:11)
[2020-04-25] MEDS: risperiDONE 1 MG TABLET PO SCH (22:11)
[2020-04-25] MEDS: HYDROCORTISONE 5 MG TABLET PO SCH (22:11)
[2020-04-26 02:38] VITALS: TEMP 97.3
[2020-04-26] MEDS ORDERED: chlordiazePOXIDE HCL 10 MG CAPSULE PO ONE (05:00)
[2020-04-26 07:15] VITALS: BP 111/67; PULSE 84
[2020-04-26] MEDS: ELVITEG/COB/EMTRI/TENOF (GENVOYA) TABLET (NF) PO SCH (07:50)
[2020-04-26] MEDS: ESCITALOPRAM OXALATE 10 MG TABLET PO SCH (09:24)
[2020-04-26] MEDS: PRENATAL VITAMINS W/ FOLIC ACID TABLET (FP) PO SCH (09:25)
== END 2020-04-26 09:25 | disposition home or self-care (01) | DRG 774 ==
LOC: YASAS 09:07 → Y6N 12:44
PROVIDERS: ADMIT Allergy & Immunology; ATTEND Allergy & Immunology
PROC: HZ2ZZZZ Detoxification Services for Substance Abuse Treatment (ICD-10-PCS; principal; 2020-04-21)
DX: F10.230 Alcohol dependence with withdrawal, uncomplicated (principal); F14.20 Cocaine dependence, uncomplicated; F17.210 Nicotine dependence, cigarettes, uncomplicated; F19.282 Other psychoactive substance dependence with psychoactive substance-induced sleep disorder; F19.24 Other psychoactive substance dependence with psychoactive substance-induced mood disorder; F34.1 Dysthymic disorder; F39 Unspecified mood [affective] disorder; Z21 Asymptomatic human immunodeficiency virus [HIV] infection status; B18.2 Chronic viral hepatitis C; R63.4 Abnormal weight loss; Z68.1 Body mass index [BMI] 19.9 or less, adult; Z87.81 Personal history of (healed) traumatic fracture; Z88.0 Allergy status to penicillin; Z91.19 Patient's noncompliance with other medical treatment and regimen; S09.8XXA Other specified injuries of head, initial encounter; W19.XXXA Unspecified fall, initial encounter; Y93.9 Activity, unspecified; Y92.238 Other place in hospital as the place of occurrence of the external cause; Y99.8 Other external cause status
CPT/HCPCS: 36415; 80053; 85027; 86780; C9803; J2794; U0003

== ENCOUNTER 2021-05-01 14:05 | Inpatient (IN) | payer OTHER ==
[2021-05-01 16:00] VITALS: BMI 14.8
[2021-05-01] MEDS ORDERED: MAGNESIUM CITRATE 300 ML BOTTLE PO PRN (18:02)
[2021-05-01] MEDS ORDERED: MAG HYDROX/AL HYDROX/SIMETH 30 ML UNIT-DOSE CUP PO PRN (18:02)
[2021-05-01] MEDS ORDERED: BISMUTH SUBSALICYLATE 524 MG/30 ML PO PRN (18:02)
[2021-05-01] MEDS ORDERED: IBUPROFEN 400 MG TABLET (FP) PO PRN (18:02)
[2021-05-01] MEDS ORDERED: DICYCLOMINE HCL 10 MG CAPSULE PO PRN (18:02)
[2021-05-01] MEDS ORDERED: MAGNESIUM HYDROX 2400MG/30ML ORAL SUSPENSION 30 ML CUP PO PRN (18:02)
[2021-05-01] MEDS ORDERED: MENTHOL/PHENOL 1 EACH UD MM PRN (18:02)
[2021-05-01] MEDS ORDERED: ONDANSETRON *ODT* 4 MG TABLET SL PRN (18:02)
[2021-05-01] MEDS ORDERED: ACETAMINOPHEN 325 MG TABLET (FP) PO PRN ×2 (18:02)
[2021-05-01] MEDS: hydrOXYzine PAMOATE 25 MG CAPSULE (FP) PO PRN (22:42)
[2021-05-01] MEDS: THIAMINE HCL 100 MG TABLET (FP) PO SCH (22:42)
[2021-05-01] MEDS: METHOCARBAMOL 500 MG TABLET PO PRN (22:43)
[2021-05-01] MEDS: MELATONIN 5 MG TABLETS PO PRN (22:43)
[2021-05-02] MEDS ORDERED: ELVITEG/COB/EMTRI/TENOF (GENVOYA) TABLET (NF) PO SCH (10:00)
[2021-05-02 13:56] LABS: HEMATOCRIT 39.7 % (35.4-49); HEMOGLOBIN 12.9 GM/dL (11.7-16.9); MCH 32.9 pg (25.7-33.7); MCHC 32.5 g/dl (32.0-35.9); MEAN CELL VOLUME 101.1 fl (80-96); MEAN PLT VOLUME 8.3 fl (7.5-11.1); PLATELET COUNT 227 10^3/uL (134-434); RBC 3.93 M/mm3 (4.00-5.60); RDW 15.4 % (11.9-15.9); WHITE BLOOD COUNT 5.3 K/mm3 (4.0-10.0)
[2021-05-02] MEDS: PRENATAL VITAMINS W/ FOLIC ACID TABLET (FP) PO SCH (14:21)
[2021-05-02] MEDS: risperiDONE 0.5 MG TABLET PO SCH ×2 (14:21→22:33)
[2021-05-02] MEDS: HYDROCORTISONE 5 MG TABLET PO SCH (14:23)
[2021-05-02 14:45] LABS: ALBUMIN 3.1 g/dl (3.4-5.0); BILIRUBIN,TOTAL 0.4 mg/dL (0.2-1); BLOOD UREA NITROGEN 19.4 mg/dL (7-18); CALCIUM 8.7 mg/dL (8.5-10.1); CREATININE 1.2 mg/dL (0.55-1.3); TOT PROT 6.4 g/dl (6.4-8.2)
[2021-05-02] MEDS: MELATONIN 5 MG TABLETS PO PRN (22:33)
[2021-05-02] MEDS: THIAMINE HCL 100 MG TABLET (FP) PO SCH (22:33)
[2021-05-02] MEDS: hydrOXYzine PAMOATE 25 MG CAPSULE (FP) PO PRN (22:33)
[2021-05-03] MEDS: PRENATAL VITAMINS W/ FOLIC ACID TABLET (FP) PO SCH (10:28)
[2021-05-03] MEDS: ELVITEG/COB/EMTRI/TENOF (GENVOYA) TABLET (NF) PO SCH (10:29)
[2021-05-03] MEDS: risperiDONE 0.5 MG TABLET PO SCH ×2 (10:29→22:21)
[2021-05-03] MEDS: HYDROCORTISONE 5 MG TABLET PO SCH (10:30)
[2021-05-03] MEDS: MELATONIN 5 MG TABLETS PO PRN (22:21)
[2021-05-03] MEDS: THIAMINE HCL 100 MG TABLET (FP) PO SCH (22:21)
[2021-05-03] MEDS: hydrOXYzine PAMOATE 25 MG CAPSULE (FP) PO PRN (22:21)
[2021-05-04] MEDS ORDERED: SULFAMETHOXAZOLE/TRIMETHOPRIM 800MG/160MG D.S. TABLET PO SCH (10:00)
[2021-05-04] MEDS: PRENATAL VITAMINS W/ FOLIC ACID TABLET (FP) PO SCH (10:21)
[2021-05-04] MEDS: risperiDONE 0.5 MG TABLET PO SCH (10:21)
[2021-05-04] MEDS: hydrOXYzine PAMOATE 25 MG CAPSULE (FP) PO PRN (10:21)
[2021-05-04] MEDS: METHOCARBAMOL 500 MG TABLET PO PRN (10:21)
[2021-05-04] MEDS: HYDROCORTISONE 5 MG TABLET PO SCH (10:22)
[2021-05-04] MEDS: ELVITEG/COB/EMTRI/TENOF (GENVOYA) TABLET (NF) PO SCH (10:22)
[2021-05-04 13:18] VITALS: BP 128/64; PULSE 84; TEMP 97.3
== END 2021-05-04 13:55 | disposition other institution (70) | DRG 774 ==
LOC: YASAS 14:05 → Y6N 21:13
PROVIDERS: ADMIT Allergy & Immunology; ATTEND Allergy & Immunology
PROC: HZ2ZZZZ Detoxification Services for Substance Abuse Treatment (ICD-10-PCS; principal; 2021-05-01)
DX: F10.230 Alcohol dependence with withdrawal, uncomplicated (principal); F14.20 Cocaine dependence, uncomplicated; F17.210 Nicotine dependence, cigarettes, uncomplicated; F25.1 Schizoaffective disorder, depressive type; F19.24 Other psychoactive substance dependence with psychoactive substance-induced mood disorder; Z21 Asymptomatic human immunodeficiency virus [HIV] infection status; B19.20 Unspecified viral hepatitis C without hepatic coma; R63.4 Abnormal weight loss; Z68.1 Body mass index [BMI] 19.9 or less, adult
CPT/HCPCS: 36415; 80053; 85027; 86780; C9803; U0003; U0005

== ENCOUNTER 2021-05-04 14:27 | Inpatient (IN) | payer OTHER ==
[2021-05-04] MEDS ORDERED: MAGNESIUM CITRATE 300 ML BOTTLE PO PRN (15:24)
[2021-05-04] MEDS ORDERED: P-EPHED 60MG/TRIPROLIDI 2.5MG TABLET PO PRN (15:24)
[2021-05-04] MEDS ORDERED: ACETAMINOPHEN 325 MG TABLET (FP) PO PRN (15:24)
[2021-05-04] MEDS ORDERED: guaiFENesin 200 MG/10 ML 10 ML UNIT-DOSE CUPS PO PRN (15:24)
[2021-05-04] MEDS ORDERED: MAG HYDROX/AL HYDROX/SIMETH 30 ML UNIT-DOSE CUP PO PRN (15:24)
[2021-05-04] MEDS ORDERED: MENTHOL/PHENOL 1 EACH UD MM PRN (15:24)
[2021-05-04] MEDS ORDERED: LOPERAMIDE HCL 2 MG CAPSULE PO PRN (15:24)
[2021-05-04] MEDS ORDERED: MAGNESIUM HYDROX 2400MG/30ML ORAL SUSPENSION 30 ML CUP PO PRN (15:24)
[2021-05-04] MEDS ORDERED: IBUPROFEN 400 MG TABLET (FP) PO PRN (15:24)
[2021-05-04] MEDS: MELATONIN 5 MG TABLETS PO SCH (21:18)
[2021-05-04] MEDS: risperiDONE 1 MG TABLET PO SCH (21:18)
[2021-05-04] MEDS: THIAMINE HCL 100 MG TABLET (FP) PO SCH (21:18)
[2021-05-05] MEDS: PRENATAL VITAMINS W/ FOLIC ACID TABLET (FP) PO SCH (10:01)
[2021-05-05] MEDS: NICOTINE 7 MG/24 HOURS TOPICAL PATCH TD SCH (10:01)
[2021-05-05] MEDS: risperiDONE 1 MG TABLET PO SCH ×2 (10:02→21:41)
[2021-05-05] MEDS: ELVITEG/COB/EMTRI/TENOF (GENVOYA) TABLET (NF) PO SCH (10:02)
[2021-05-05] MEDS: MELATONIN 5 MG TABLETS PO SCH (21:40)
[2021-05-05] MEDS: THIAMINE HCL 100 MG TABLET (FP) PO SCH (21:40)
[2021-05-05] MEDS: hydrOXYzine PAMOATE 25 MG CAPSULE (FP) PO PRN (21:43)
[2021-05-06] MEDS: PRENATAL VITAMINS W/ FOLIC ACID TABLET (FP) PO SCH (09:53)
[2021-05-06] MEDS: risperiDONE 1 MG TABLET PO SCH ×2 (09:53→21:18)
[2021-05-06] MEDS: ELVITEG/COB/EMTRI/TENOF (GENVOYA) TABLET (NF) PO SCH (09:54)
[2021-05-06] MEDS: SULFAMETHOXAZOLE/TRIMETHOPRIM 800MG/160MG D.S. TABLET PO SCH (09:55)
[2021-05-06] MEDS: NICOTINE 7 MG/24 HOURS TOPICAL PATCH TD SCH (09:55)
[2021-05-06] MEDS: NICOTINE 10 MG CARTRIDGE (INHALER) IH PRN ×2 (11:12→20:17)
[2021-05-06] MEDS ORDERED: TUBERCULIN PPD 5 TU/0.1ML VIAL ID ONE (12:45)
[2021-05-06] MEDS: THIAMINE HCL 100 MG TABLET (FP) PO SCH (21:18)
[2021-05-06] MEDS: hydrOXYzine PAMOATE 25 MG CAPSULE (FP) PO PRN (21:18)
[2021-05-06] MEDS: MELATONIN 5 MG TABLETS PO SCH (21:19)
[2021-05-06] MEDS: traZODone HCL 50 MG TABLET (FP) PO SCH (21:20)
[2021-05-07] MEDS: PRENATAL VITAMINS W/ FOLIC ACID TABLET (FP) PO SCH (10:28)
[2021-05-07] MEDS: risperiDONE 1 MG TABLET PO SCH ×2 (10:29→21:19)
[2021-05-07] MEDS: ELVITEG/COB/EMTRI/TENOF (GENVOYA) TABLET (NF) PO SCH (10:29)
[2021-05-07] MEDS: NICOTINE 7 MG/24 HOURS TOPICAL PATCH TD SCH (10:29)
[2021-05-07] MEDS: traZODone HCL 50 MG TABLET (FP) PO SCH (21:18)
[2021-05-07] MEDS: hydrOXYzine PAMOATE 25 MG CAPSULE (FP) PO PRN (21:18)
[2021-05-07] MEDS: THIAMINE HCL 100 MG TABLET (FP) PO SCH (21:18)
[2021-05-07] MEDS: MELATONIN 5 MG TABLETS PO SCH (21:19)
[2021-05-08] MEDS: PRENATAL VITAMINS W/ FOLIC ACID TABLET (FP) PO SCH (09:58)
[2021-05-08] MEDS: NICOTINE 10 MG CARTRIDGE (INHALER) IH PRN ×2 (09:58→18:37)
[2021-05-08] MEDS: SULFAMETHOXAZOLE/TRIMETHOPRIM 800MG/160MG D.S. TABLET PO SCH (09:59)
[2021-05-08] MEDS: risperiDONE 1 MG TABLET PO SCH (09:59)
[2021-05-08] MEDS: ELVITEG/COB/EMTRI/TENOF (GENVOYA) TABLET (NF) PO SCH (10:00)
[2021-05-08] MEDS: NICOTINE 7 MG/24 HOURS TOPICAL PATCH TD SCH (10:01)
[2021-05-08] MEDS: MELATONIN 5 MG TABLETS PO SCH (21:42)
[2021-05-08] MEDS: THIAMINE HCL 100 MG TABLET (FP) PO SCH (21:42)
[2021-05-08] MEDS: traZODone HCL 50 MG TABLET (FP) PO SCH (21:42)
[2021-05-08] MEDS: risperiDONE 0.5 MG TABLET PO SCH (21:42)
[2021-05-09] MEDS: hydrOXYzine PAMOATE 25 MG CAPSULE (FP) PO PRN ×2 (01:21→21:59)
[2021-05-09] MEDS: PRENATAL VITAMINS W/ FOLIC ACID TABLET (FP) PO SCH (10:25)
[2021-05-09] MEDS: ELVITEG/COB/EMTRI/TENOF (GENVOYA) TABLET (NF) PO SCH (10:26)
[2021-05-09] MEDS: NICOTINE 7 MG/24 HOURS TOPICAL PATCH TD SCH (10:26)
[2021-05-09] MEDS: risperiDONE 0.5 MG TABLET PO SCH ×2 (10:27→21:59)
[2021-05-09] MEDS: NICOTINE 10 MG CARTRIDGE (INHALER) IH PRN ×2 (10:28→22:17)
[2021-05-09] MEDS: MELATONIN 5 MG TABLETS PO SCH (21:58)
[2021-05-09] MEDS: THIAMINE HCL 100 MG TABLET (FP) PO SCH (21:58)
[2021-05-09] MEDS: traZODone HCL 50 MG TABLET (FP) PO SCH (21:58)
[2021-05-10] MEDS: ELVITEG/COB/EMTRI/TENOF (GENVOYA) TABLET (NF) PO SCH (10:53)
[2021-05-10] MEDS: PRENATAL VITAMINS W/ FOLIC ACID TABLET (FP) PO SCH (10:53)
[2021-05-10] MEDS: NICOTINE 7 MG/24 HOURS TOPICAL PATCH TD SCH (10:53)
[2021-05-10] MEDS: risperiDONE 0.5 MG TABLET PO SCH ×2 (10:53→21:21)
[2021-05-10] MEDS: traZODone HCL 50 MG TABLET (FP) PO SCH (21:19)
[2021-05-10] MEDS: THIAMINE HCL 100 MG TABLET (FP) PO SCH (21:21)
[2021-05-10] MEDS: MELATONIN 5 MG TABLETS PO SCH (21:21)
[2021-05-11] MEDS: SULFAMETHOXAZOLE/TRIMETHOPRIM 800MG/160MG D.S. TABLET PO SCH (10:00)
[2021-05-11] MEDS: PRENATAL VITAMINS W/ FOLIC ACID TABLET (FP) PO SCH (10:00)
[2021-05-11] MEDS: ELVITEG/COB/EMTRI/TENOF (GENVOYA) TABLET (NF) PO SCH (10:01)
[2021-05-11] MEDS: risperiDONE 0.5 MG TABLET PO SCH ×2 (10:01→21:34)
[2021-05-11] MEDS: NICOTINE 7 MG/24 HOURS TOPICAL PATCH TD SCH (10:01)
[2021-05-11] MEDS: NICOTINE 10 MG CARTRIDGE (INHALER) IH PRN (10:02)
[2021-05-11] MEDS: hydrOXYzine PAMOATE 25 MG CAPSULE (FP) PO PRN (21:34)
[2021-05-11] MEDS: traZODone HCL 50 MG TABLET (FP) PO SCH (21:34)
[2021-05-11] MEDS: THIAMINE HCL 100 MG TABLET (FP) PO SCH (21:34)
[2021-05-11] MEDS: MELATONIN 5 MG TABLETS PO SCH (21:35)
[2021-05-12 07:21] VITALS: BP 107/71; PULSE 82; TEMP 97.6
[2021-05-12] MEDS: PRENATAL VITAMINS W/ FOLIC ACID TABLET (FP) PO SCH (09:44)
[2021-05-12] MEDS: NICOTINE 7 MG/24 HOURS TOPICAL PATCH TD SCH (09:44)
[2021-05-12] MEDS: risperiDONE 0.5 MG TABLET PO SCH (09:45)
[2021-05-12] MEDS: ELVITEG/COB/EMTRI/TENOF (GENVOYA) TABLET (NF) PO SCH (09:45)
== END 2021-05-12 10:52 | disposition home or self-care (01) | DRG 772 ==
LOC: YASAS 14:27 → Y5N 14:28
PROVIDERS: ADMIT Allergy & Immunology; ATTEND Allergy & Immunology
PROC: HZ42ZZZ Group Counseling for Substance Abuse Treatment, Cognitive-Behavioral (ICD-10-PCS; principal; 2021-05-04)
DX: F10.20 Alcohol dependence, uncomplicated (principal); F14.20 Cocaine dependence, uncomplicated; F17.210 Nicotine dependence, cigarettes, uncomplicated; F19.282 Other psychoactive substance dependence with psychoactive substance-induced sleep disorder; F39 Unspecified mood [affective] disorder; Z21 Asymptomatic human immunodeficiency virus [HIV] infection status; B18.2 Chronic viral hepatitis C; R63.4 Abnormal weight loss; Z68.1 Body mass index [BMI] 19.9 or less, adult; Z91.51 Personal history of suicidal behavior; Z88.0 Allergy status to penicillin; Z56.0 Unemployment, unspecified
CPT/HCPCS: J2794

== ENCOUNTER 2021-09-26 15:44 | Inpatient (IN) | payer OTHER ==
[2021-09-26 17:16] VITALS: BMI 15.6
[2021-09-26] MEDS ORDERED: ONDANSETRON *ODT* 4 MG TABLET SL PRN (20:18)
[2021-09-26] MEDS ORDERED: BISMUTH SUBSALICYLATE 524 MG/30 ML PO PRN (20:18)
[2021-09-26] MEDS ORDERED: MAGNESIUM CITRATE 300 ML BOTTLE PO PRN (20:18)
[2021-09-26] MEDS ORDERED: BENZOCAINE/MENTHOL (CHLORASEPTIC ) LOZENGE MM PRN (20:18)
[2021-09-26] MEDS ORDERED: NICOTINE 10 MG CARTRIDGE (INHALER) IH PRN (20:18)
[2021-09-26] MEDS ORDERED: IBUPROFEN 400 MG TABLET (FP) PO PRN (20:18)
[2021-09-26] MEDS ORDERED: DICYCLOMINE HCL 10 MG CAPSULE PO PRN (20:18)
[2021-09-26] MEDS ORDERED: chlordiazePOXIDE HCL 25 MG CAPSULE PO PRN (20:18)
[2021-09-26] MEDS ORDERED: LOPERAMIDE HCL 2 MG CAPSULE PO PRN (20:18)
[2021-09-26] MEDS ORDERED: ACETAMINOPHEN 325 MG TABLET (FP) PO PRN ×2 (20:18)
[2021-09-26] MEDS ORDERED: MAG HYDROX/AL HYDROX/SIMETH 30 ML UNIT-DOSE CUP PO PRN (20:18)
[2021-09-26] MEDS ORDERED: IBUPROFEN 600 MG TABLET (FP) PO PRN (20:18)
[2021-09-26] MEDS ORDERED: MAGNESIUM HYDROX 2400MG/30ML ORAL SUSPENSION 30 ML CUP PO PRN (20:18)
[2021-09-26] MEDS: THIAMINE HCL 100 MG TABLET (FP) PO SCH (22:50)
[2021-09-26] MEDS: chlordiazePOXIDE HCL 25 MG CAPSULE PO SCH (22:50)
[2021-09-26] MEDS: MELATONIN 5 MG TABLETS PO SCH (22:50)
[2021-09-27] MEDS: chlordiazePOXIDE HCL 25 MG CAPSULE PO SCH ×4 (05:38→22:30)
[2021-09-27] MEDS: NICOTINE 14 MG/24 HOURS TOPICAL PATCH TD SCH (10:18)
[2021-09-27] MEDS: PRENATAL VITAMINS W/ FOLIC ACID TABLET (FP) PO SCH (10:20)
[2021-09-27 10:22] LABS: HEMATOCRIT 42.3 % (35.4-49); HEMOGLOBIN 14.1 GM/dL (11.7-16.9); MCH 34.3 pg (25.7-33.7); MCHC 33.3 g/dl (32.0-35.9); MEAN CELL VOLUME 102.8 fl (80-96); MEAN PLT VOLUME 8.5 fl (7.5-11.1); PLATELET COUNT 143 10^3/uL (134-434); RBC 4.11 M/mm3 (4.00-5.60); RDW 13.6 % (11.9-15.9); WHITE BLOOD COUNT 4.8 K/mm3 (4.0-10.0)
[2021-09-27 10:43] LABS: CALCIUM 9.2 mg/dL (8.5-10.1)
[2021-09-27 10:44] LABS: ALBUMIN 3.5 g/dl (3.4-5.0); BLOOD UREA NITROGEN 23.8 mg/dL (7-18)
[2021-09-27 10:47] LABS: CREATININE 1.2 mg/dL (0.55-1.3)
[2021-09-27 10:48] LABS: BILIRUBIN,TOTAL 0.7 mg/dL (0.2-1)
[2021-09-27] MEDS: MELATONIN 5 MG TABLETS PO SCH (22:30)
[2021-09-27] MEDS: THIAMINE HCL 100 MG TABLET (FP) PO SCH (22:30)
[2021-09-28] MEDS: chlordiazePOXIDE HCL 25 MG CAPSULE PO SCH ×4 (05:13→23:43)
[2021-09-28] MEDS: PRENATAL VITAMINS W/ FOLIC ACID TABLET (FP) PO SCH (10:21)
[2021-09-28] MEDS: METHOCARBAMOL 500 MG TABLET PO PRN (10:21)
[2021-09-28] MEDS: NICOTINE 14 MG/24 HOURS TOPICAL PATCH TD SCH (10:22)
[2021-09-28] MEDS: THIAMINE HCL 100 MG TABLET (FP) PO SCH (22:21)
[2021-09-28] MEDS: MELATONIN 5 MG TABLETS PO SCH (22:21)
[2021-09-29] MEDS ORDERED: chlordiazePOXIDE HCL 10 MG CAPSULE PO PRN
[2021-09-29] MEDS: chlordiazePOXIDE HCL 10 MG CAPSULE PO SCH ×4 (05:31→22:35)
[2021-09-29] MEDS: NICOTINE 14 MG/24 HOURS TOPICAL PATCH TD SCH (11:35)
[2021-09-29] MEDS: PRENATAL VITAMINS W/ FOLIC ACID TABLET (FP) PO SCH (11:36)
[2021-09-29] MEDS: METHOCARBAMOL 500 MG TABLET PO PRN ×2 (11:39→18:34)
[2021-09-29] MEDS: MELATONIN 5 MG TABLETS PO SCH (22:34)
[2021-09-29] MEDS: THIAMINE HCL 100 MG TABLET (FP) PO SCH (22:34)
[2021-09-30] MEDS: chlordiazePOXIDE HCL 10 MG CAPSULE PO SCH ×2 (05:50→17:49)
[2021-09-30] MEDS: NICOTINE 14 MG/24 HOURS TOPICAL PATCH TD SCH (10:20)
[2021-09-30] MEDS: PRENATAL VITAMINS W/ FOLIC ACID TABLET (FP) PO SCH (10:20)
[2021-09-30] MEDS: METHOCARBAMOL 500 MG TABLET PO PRN ×2 (10:20→22:02)
[2021-09-30] MEDS: ELVITEG/COB/EMTRI/TENOF (GENVOYA) TABLET (NF) PO SCH (14:51)
[2021-09-30] MEDS: MELATONIN 5 MG TABLETS PO SCH (22:01)
[2021-09-30] MEDS: THIAMINE HCL 100 MG TABLET (FP) PO SCH (22:01)
[2021-10-01] MEDS ORDERED: chlordiazePOXIDE HCL 10 MG CAPSULE PO ONE (05:00)
[2021-10-01] MEDS: ELVITEG/COB/EMTRI/TENOF (GENVOYA) TABLET (NF) PO SCH (07:04)
[2021-10-01] MEDS: PRENATAL VITAMINS W/ FOLIC ACID TABLET (FP) PO SCH (10:24)
[2021-10-01] MEDS: METHOCARBAMOL 500 MG TABLET PO PRN (10:25)
[2021-10-01] MEDS: NICOTINE 14 MG/24 HOURS TOPICAL PATCH TD SCH (10:25)
[2021-10-01] MEDS ORDERED: risperiDONE 0.5 MG TABLET PO SCH (12:30)
[2021-10-01 12:43] VITALS: BP 130/75; PULSE 70; TEMP 97.5
== END 2021-10-01 13:09 | disposition other institution (70) | DRG 774 ==
LOC: YASAS 15:44 → Y6N 20:07
PROVIDERS: ADMIT Allergy & Immunology; ATTEND Surgery
PROC: HZ2ZZZZ Detoxification Services for Substance Abuse Treatment (ICD-10-PCS; principal; 2021-09-26)
DX: F10.230 Alcohol dependence with withdrawal, uncomplicated (principal); F14.20 Cocaine dependence, uncomplicated; F17.210 Nicotine dependence, cigarettes, uncomplicated; F25.1 Schizoaffective disorder, depressive type; F19.282 Other psychoactive substance dependence with psychoactive substance-induced sleep disorder; B19.20 Unspecified viral hepatitis C without hepatic coma; R63.4 Abnormal weight loss; Z68.1 Body mass index [BMI] 19.9 or less, adult; Z88.0 Allergy status to penicillin
CPT/HCPCS: 36415; 80053; 85027; 86780; 93005; 93010; C9803-CS; U0003; U0005

== ENCOUNTER 2021-10-01 13:37 | Inpatient (IN) | payer OTHER ==
[2021-10-01] MEDS ORDERED: BENZOCAINE/MENTHOL (CHLORASEPTIC ) LOZENGE MM PRN (15:35)
[2021-10-01] MEDS ORDERED: guaiFENesin 200 MG/10 ML 10 ML UNIT-DOSE CUPS PO PRN (15:35)
[2021-10-01] MEDS ORDERED: ACETAMINOPHEN 325 MG TABLET (FP) PO PRN (15:35)
[2021-10-01] MEDS ORDERED: MAGNESIUM CITRATE 300 ML BOTTLE PO PRN (15:35)
[2021-10-01] MEDS ORDERED: LOPERAMIDE HCL 2 MG CAPSULE PO PRN (15:35)
[2021-10-01] MEDS ORDERED: MAGNESIUM HYDROX 2400MG/30ML ORAL SUSPENSION 30 ML CUP PO PRN (15:35)
[2021-10-01] MEDS ORDERED: P-EPHED 60MG/TRIPROLIDI 2.5MG TABLET PO PRN (15:35)
[2021-10-01] MEDS: NICOTINE 10 MG CARTRIDGE (INHALER) IH PRN (18:39)
[2021-10-01] MEDS: risperiDONE 1 MG TABLET PO SCH (21:30)
[2021-10-01] MEDS: hydrOXYzine PAMOATE 25 MG CAPSULE (FP) PO PRN (21:32)
[2021-10-01] MEDS: MELATONIN 5 MG TABLETS PO SCH (21:32)
[2021-10-01] MEDS: THIAMINE HCL 100 MG TABLET (FP) PO SCH (21:49)
[2021-10-01] MEDS: MAG HYDROX/AL HYDROX/SIMETH 30 ML UNIT-DOSE CUP PO PRN (21:51)
[2021-10-02] MEDS: ELVITEG/COB/EMTRI/TENOF (GENVOYA) TABLET (NF) PO SCH (07:11)
[2021-10-02] MEDS: PRENATAL VITAMINS W/ FOLIC ACID TABLET (FP) PO SCH (09:56)
[2021-10-02] MEDS: risperiDONE 1 MG TABLET PO SCH ×2 (09:57→21:22)
[2021-10-02] MEDS: NICOTINE 7 MG/24 HOURS TOPICAL PATCH TD SCH (09:57)
[2021-10-02] MEDS: THIAMINE HCL 100 MG TABLET (FP) PO SCH (21:22)
[2021-10-02] MEDS: MELATONIN 5 MG TABLETS PO SCH (21:22)
[2021-10-02] MEDS: hydrOXYzine PAMOATE 25 MG CAPSULE (FP) PO PRN (21:23)
[2021-10-03] MEDS: ELVITEG/COB/EMTRI/TENOF (GENVOYA) TABLET (NF) PO SCH (07:03)
[2021-10-03] MEDS: PRENATAL VITAMINS W/ FOLIC ACID TABLET (FP) PO SCH (09:40)
[2021-10-03] MEDS: risperiDONE 1 MG TABLET PO SCH ×2 (09:40→21:19)
[2021-10-03] MEDS: NICOTINE 7 MG/24 HOURS TOPICAL PATCH TD SCH (09:40)
[2021-10-03] MEDS: IBUPROFEN 400 MG TABLET (FP) PO PRN (09:42)
[2021-10-03] MEDS: NICOTINE 10 MG CARTRIDGE (INHALER) IH PRN (20:05)
[2021-10-03] MEDS: MELATONIN 5 MG TABLETS PO SCH (21:18)
[2021-10-03] MEDS: hydrOXYzine PAMOATE 25 MG CAPSULE (FP) PO PRN (21:20)
[2021-10-03] MEDS: THIAMINE HCL 100 MG TABLET (FP) PO SCH (21:20)
[2021-10-04] MEDS: ELVITEG/COB/EMTRI/TENOF (GENVOYA) TABLET (NF) PO SCH (07:02)
[2021-10-04] MEDS: PRENATAL VITAMINS W/ FOLIC ACID TABLET (FP) PO SCH (09:55)
[2021-10-04] MEDS: NICOTINE 7 MG/24 HOURS TOPICAL PATCH TD SCH (09:55)
[2021-10-04] MEDS: risperiDONE 1 MG TABLET PO SCH ×2 (09:56→21:23)
[2021-10-04] MEDS: IBUPROFEN 400 MG TABLET (FP) PO PRN (13:38)
[2021-10-04] MEDS: MELATONIN 5 MG TABLETS PO SCH (21:22)
[2021-10-04] MEDS: THIAMINE HCL 100 MG TABLET (FP) PO SCH (21:22)
[2021-10-04] MEDS: hydrOXYzine PAMOATE 25 MG CAPSULE (FP) PO PRN (21:22)
[2021-10-05] MEDS: ELVITEG/COB/EMTRI/TENOF (GENVOYA) TABLET (NF) PO SCH (07:06)
[2021-10-05] MEDS: PRENATAL VITAMINS W/ FOLIC ACID TABLET (FP) PO SCH (10:01)
[2021-10-05] MEDS: risperiDONE 1 MG TABLET PO SCH ×2 (10:01→21:29)
[2021-10-05] MEDS: NICOTINE 7 MG/24 HOURS TOPICAL PATCH TD SCH (10:01)
[2021-10-05] MEDS: MAG HYDROX/AL HYDROX/SIMETH 30 ML UNIT-DOSE CUP PO PRN (11:31)
[2021-10-05] MEDS: THIAMINE HCL 100 MG TABLET (FP) PO SCH (21:29)
[2021-10-05] MEDS: MELATONIN 5 MG TABLETS PO SCH (21:30)
[2021-10-06] MEDS: PRENATAL VITAMINS W/ FOLIC ACID TABLET (FP) PO SCH (09:51)
[2021-10-06] MEDS: NICOTINE 7 MG/24 HOURS TOPICAL PATCH TD SCH (09:52)
[2021-10-06] MEDS: hydrOXYzine PAMOATE 25 MG CAPSULE (FP) PO PRN (09:53)
[2021-10-06] MEDS: risperiDONE 1 MG TABLET PO SCH ×2 (09:53→21:21)
[2021-10-06] MEDS: THIAMINE HCL 100 MG TABLET (FP) PO SCH (21:21)
[2021-10-06] MEDS: MELATONIN 5 MG TABLETS PO SCH (21:21)
[2021-10-07] MEDS: ELVITEG/COB/EMTRI/TENOF (GENVOYA) TABLET (NF) PO SCH ×2 (01:23→07:01)
[2021-10-07] MEDS: PRENATAL VITAMINS W/ FOLIC ACID TABLET (FP) PO SCH (10:01)
[2021-10-07] MEDS: risperiDONE 1 MG TABLET PO SCH ×2 (10:01→21:23)
[2021-10-07] MEDS: NICOTINE 7 MG/24 HOURS TOPICAL PATCH TD SCH (10:01)
[2021-10-07] MEDS: FLUOCINONIDE 0.05% TOPICAL SOLUTION (60 ML BOTTLE) TP SCH ×2 (14:13→21:22)
[2021-10-07] MEDS: NICOTINE 10 MG CARTRIDGE (INHALER) IH PRN (16:30)
[2021-10-07] MEDS: MELATONIN 5 MG TABLETS PO SCH (21:23)
[2021-10-07] MEDS: THIAMINE HCL 100 MG TABLET (FP) PO SCH (21:23)
[2021-10-08] MEDS: hydrOXYzine PAMOATE 25 MG CAPSULE (FP) PO PRN ×2 (00:59→21:29)
[2021-10-08] MEDS: ELVITEG/COB/EMTRI/TENOF (GENVOYA) TABLET (NF) PO SCH (07:55)
[2021-10-08] MEDS: PRENATAL VITAMINS W/ FOLIC ACID TABLET (FP) PO SCH (10:00)
[2021-10-08] MEDS: NICOTINE 7 MG/24 HOURS TOPICAL PATCH TD SCH (10:00)
[2021-10-08] MEDS: FLUOCINONIDE 0.05% TOPICAL SOLUTION (60 ML BOTTLE) TP SCH ×2 (10:01→21:28)
[2021-10-08] MEDS: risperiDONE 1 MG TABLET PO SCH ×2 (10:02→21:29)
[2021-10-08] MEDS: NICOTINE 10 MG CARTRIDGE (INHALER) IH PRN (14:17)
[2021-10-08] MEDS: THIAMINE HCL 100 MG TABLET (FP) PO SCH (21:29)
[2021-10-08] MEDS: MELATONIN 5 MG TABLETS PO SCH (21:29)
[2021-10-09] MEDS: PRENATAL VITAMINS W/ FOLIC ACID TABLET (FP) PO SCH (09:51)
[2021-10-09] MEDS: risperiDONE 1 MG TABLET PO SCH ×2 (09:51→21:14)
[2021-10-09] MEDS: NICOTINE 7 MG/24 HOURS TOPICAL PATCH TD SCH (09:53)
[2021-10-09] MEDS: FLUOCINONIDE 0.05% TOPICAL SOLUTION (60 ML BOTTLE) TP SCH ×2 (09:53→21:15)
[2021-10-09] MEDS: ELVITEG/COB/EMTRI/TENOF (GENVOYA) TABLET (NF) PO SCH (11:00)
[2021-10-09] MEDS: MELATONIN 5 MG TABLETS PO SCH (21:13)
[2021-10-09] MEDS: THIAMINE HCL 100 MG TABLET (FP) PO SCH (21:14)
[2021-10-09] MEDS: hydrOXYzine PAMOATE 25 MG CAPSULE (FP) PO PRN (21:14)
[2021-10-09] MEDS: SUVOREXANT 10 MG TABLET PO PRN (22:36)
[2021-10-10] MEDS: ELVITEG/COB/EMTRI/TENOF (GENVOYA) TABLET (NF) PO SCH (08:17)
[2021-10-10] MEDS: PRENATAL VITAMINS W/ FOLIC ACID TABLET (FP) PO SCH (10:21)
[2021-10-10] MEDS: NICOTINE 7 MG/24 HOURS TOPICAL PATCH TD SCH (10:22)
[2021-10-10] MEDS: FLUOCINONIDE 0.05% TOPICAL SOLUTION (60 ML BOTTLE) TP SCH ×2 (10:22→21:36)
[2021-10-10] MEDS: risperiDONE 1 MG TABLET PO SCH ×2 (10:23→21:36)
[2021-10-10] MEDS: THIAMINE HCL 100 MG TABLET (FP) PO SCH (21:36)
[2021-10-10] MEDS: MELATONIN 5 MG TABLETS PO SCH (21:37)
[2021-10-10] MEDS: SUVOREXANT 10 MG TABLET PO PRN (23:42)
[2021-10-11] MEDS: ELVITEG/COB/EMTRI/TENOF (GENVOYA) TABLET (NF) PO SCH (07:20)
[2021-10-11] MEDS: FLUOCINONIDE 0.05% TOPICAL SOLUTION (60 ML BOTTLE) TP SCH ×2 (10:16→21:38)
[2021-10-11] MEDS: NICOTINE 10 MG CARTRIDGE (INHALER) IH PRN (10:17)
[2021-10-11] MEDS: NICOTINE 7 MG/24 HOURS TOPICAL PATCH TD SCH (10:17)
[2021-10-11] MEDS: risperiDONE 1 MG TABLET PO SCH ×2 (10:18→21:33)
[2021-10-11] MEDS: PRENATAL VITAMINS W/ FOLIC ACID TABLET (FP) PO SCH (10:18)
[2021-10-11] MEDS: MELATONIN 5 MG TABLETS PO SCH (21:33)
[2021-10-11] MEDS: SUVOREXANT 10 MG TABLET PO PRN (21:36)
[2021-10-11] MEDS: THIAMINE HCL 100 MG TABLET (FP) PO SCH (21:38)
[2021-10-12] MEDS: ELVITEG/COB/EMTRI/TENOF (GENVOYA) TABLET (NF) PO SCH (07:03)
[2021-10-12] MEDS: NICOTINE 7 MG/24 HOURS TOPICAL PATCH TD SCH (10:01)
[2021-10-12] MEDS: PRENATAL VITAMINS W/ FOLIC ACID TABLET (FP) PO SCH (10:01)
[2021-10-12] MEDS: FLUOCINONIDE 0.05% TOPICAL SOLUTION (60 ML BOTTLE) TP SCH ×2 (10:02→21:26)
[2021-10-12] MEDS: risperiDONE 1 MG TABLET PO SCH ×2 (10:03→21:26)
[2021-10-12] MEDS: THIAMINE HCL 100 MG TABLET (FP) PO SCH (21:24)
[2021-10-12] MEDS: SUVOREXANT 10 MG TABLET PO PRN (21:25)
[2021-10-12] MEDS: hydrOXYzine PAMOATE 25 MG CAPSULE (FP) PO PRN (21:25)
[2021-10-12] MEDS: MELATONIN 5 MG TABLETS PO SCH (21:26)
[2021-10-13] MEDS: ELVITEG/COB/EMTRI/TENOF (GENVOYA) TABLET (NF) PO SCH (07:00)
[2021-10-13] MEDS: NICOTINE 10 MG CARTRIDGE (INHALER) IH PRN (10:01)
[2021-10-13] MEDS: FLUOCINONIDE 0.05% TOPICAL SOLUTION (60 ML BOTTLE) TP SCH ×2 (10:01→21:21)
[2021-10-13] MEDS: risperiDONE 1 MG TABLET PO SCH ×2 (10:02→21:18)
[2021-10-13] MEDS: PRENATAL VITAMINS W/ FOLIC ACID TABLET (FP) PO SCH (10:02)
[2021-10-13] MEDS: NICOTINE 7 MG/24 HOURS TOPICAL PATCH TD SCH (10:02)
[2021-10-13] MEDS: THIAMINE HCL 100 MG TABLET (FP) PO SCH (21:18)
[2021-10-13] MEDS: MELATONIN 5 MG TABLETS PO SCH (21:21)
[2021-10-13] MEDS ORDERED: SUVOREXANT 10 MG TABLET PO PRN (22:00)
[2021-10-14] MEDS: ELVITEG/COB/EMTRI/TENOF (GENVOYA) TABLET (NF) PO SCH (07:02)
[2021-10-14 07:03] VITALS: BP 110/72; PULSE 79; TEMP 97.7
[2021-10-14] MEDS: risperiDONE 1 MG TABLET PO SCH (09:18)
[2021-10-14] MEDS: NICOTINE 7 MG/24 HOURS TOPICAL PATCH TD SCH (09:19)
[2021-10-14] MEDS: PRENATAL VITAMINS W/ FOLIC ACID TABLET (FP) PO SCH (09:19)
[2021-10-14] MEDS: FLUOCINONIDE 0.05% TOPICAL SOLUTION (60 ML BOTTLE) TP SCH (09:20)
== END 2021-10-14 10:00 | disposition home or self-care (01) | DRG 772 ==
LOC: YASAS 13:37 → Y5N 13:38
PROVIDERS: ADMIT Allergy & Immunology; ATTEND Psychiatry & Neurology Pain Medicine
PROC: HZ42ZZZ Group Counseling for Substance Abuse Treatment, Cognitive-Behavioral (ICD-10-PCS; principal; 2021-10-01)
DX: F10.20 Alcohol dependence, uncomplicated (principal); F14.20 Cocaine dependence, uncomplicated; F17.210 Nicotine dependence, cigarettes, uncomplicated; F25.9 Schizoaffective disorder, unspecified; F19.282 Other psychoactive substance dependence with psychoactive substance-induced sleep disorder; F39 Unspecified mood [affective] disorder; F32.A Depression, unspecified; Z21 Asymptomatic human immunodeficiency virus [HIV] infection status; B18.2 Chronic viral hepatitis C; Z88.0 Allergy status to penicillin
CPT/HCPCS: J2794

== ENCOUNTER 2021-11-27 11:23 | Inpatient (IN) | payer OTHER ==
[2021-11-27 12:06] VITALS: BMI 16.4
[2021-11-27] MEDS ORDERED: ONDANSETRON *ODT* 4 MG TABLET SL PRN (12:57)
[2021-11-27] MEDS ORDERED: BENZOCAINE/MENTHOL (CHLORASEPTIC ) LOZENGE MM PRN (12:57)
[2021-11-27] MEDS ORDERED: IBUPROFEN 600 MG TABLET (FP) PO PRN (12:57)
[2021-11-27] MEDS ORDERED: MAG HYDROX/AL HYDROX/SIMETH 30 ML UNIT-DOSE CUP PO PRN (12:57)
[2021-11-27] MEDS ORDERED: MAGNESIUM CITRATE 300 ML BOTTLE PO PRN (12:57)
[2021-11-27] MEDS ORDERED: LORazepam 1 MG TABLET PO PRN (12:57)
[2021-11-27] MEDS ORDERED: DICYCLOMINE HCL 10 MG CAPSULE PO PRN (12:57)
[2021-11-27] MEDS ORDERED: IBUPROFEN 400 MG TABLET (FP) PO PRN (12:57)
[2021-11-27] MEDS ORDERED: MAGNESIUM HYDROX 2400MG/30ML ORAL SUSPENSION 30 ML CUP PO PRN (12:57)
[2021-11-27] MEDS ORDERED: ACETAMINOPHEN 325 MG TABLET (FP) PO PRN ×2 (12:57)
[2021-11-27] MEDS ORDERED: BISMUTH SUBSALICYLATE 524 MG/30 ML PO PRN (12:57)
[2021-11-27] MEDS ORDERED: LOPERAMIDE HCL 2 MG CAPSULE PO PRN (12:57)
[2021-11-27] MEDS: LORazepam 2 MG TABLET PO SCH ×3 (14:38→22:36)
[2021-11-27] MEDS: hydrOXYzine PAMOATE 25 MG CAPSULE (FP) PO SCH ×3 (14:38→22:36)
[2021-11-27] MEDS: PRENATAL VITAMINS W/ FOLIC ACID TABLET (FP) PO SCH (14:38)
[2021-11-27] MEDS ORDERED: MELATONIN 5 MG TABLETS PO SCH (22:00)
[2021-11-27] MEDS: risperiDONE 0.5 MG TABLET PO SCH (22:35)
[2021-11-27] MEDS: traZODone HCL 50 MG TABLET (FP) PO PRN (22:35)
[2021-11-27] MEDS: THIAMINE HCL 100 MG TABLET (FP) PO SCH (22:35)
[2021-11-28] MEDS: LORazepam 2 MG TABLET PO SCH ×4 (06:49→22:42)
[2021-11-28] MEDS: hydrOXYzine PAMOATE 25 MG CAPSULE (FP) PO SCH ×5 (06:49→22:42)
[2021-11-28] MEDS: risperiDONE 0.5 MG TABLET PO SCH ×2 (10:11→22:42)
[2021-11-28] MEDS: PRENATAL VITAMINS W/ FOLIC ACID TABLET (FP) PO SCH (10:11)
[2021-11-28] MEDS: NICOTINE 14 MG/24 HOURS TOPICAL PATCH TD SCH (10:13)
[2021-11-28] MEDS: ELVITEG/COB/EMTRI/TENOF (GENVOYA) TABLET (NF) PO SCH (14:27)
[2021-11-28 15:32] LABS: CALCIUM 8.9 mg/dL (8.5-10.1)
[2021-11-28 15:33] LABS: ALBUMIN 3.4 g/dl (3.4-5.0); BLOOD UREA NITROGEN 14.4 mg/dL (7-18)
[2021-11-28 15:36] LABS: CREATININE 1.1 mg/dL (0.55-1.3)
[2021-11-28 15:37] LABS: BILIRUBIN,TOTAL 0.2 mg/dL (0.2-1); TOT PROT 6.8 g/dl (6.4-8.2)
[2021-11-28 15:44] LABS: HEMATOCRIT 44.9 % (35.4-49); HEMOGLOBIN 14.9 GM/dL (11.7-16.9); MCHC 33.1 g/dl (32.0-35.9); MEAN CELL VOLUME 102.7 fl (80-96); MEAN PLT VOLUME 8.9 fl (7.5-11.1); PLATELET COUNT 170 10^3/uL (134-434); RBC 4.37 M/mm3 (4.00-5.60); RDW 14.2 % (11.9-15.9); WHITE BLOOD COUNT 3.9 K/mm3 (4.0-10.0)
[2021-11-28] MEDS: THIAMINE HCL 100 MG TABLET (FP) PO SCH (22:42)
[2021-11-29] MEDS: LORazepam 1 MG TABLET PO SCH ×4 (05:43→22:49)
[2021-11-29] MEDS: hydrOXYzine PAMOATE 25 MG CAPSULE (FP) PO SCH ×5 (05:44→22:49)
[2021-11-29] MEDS: PRENATAL VITAMINS W/ FOLIC ACID TABLET (FP) PO SCH (10:12)
[2021-11-29] MEDS: risperiDONE 0.5 MG TABLET PO SCH ×2 (10:12→22:49)
[2021-11-29] MEDS: ELVITEG/COB/EMTRI/TENOF (GENVOYA) TABLET (NF) PO SCH (10:13)
[2021-11-29] MEDS: NICOTINE 14 MG/24 HOURS TOPICAL PATCH TD SCH (10:15)
[2021-11-29] MEDS: LACTULOSE 20 GM/30 ML UDC (FOR ORAL USE ONLY) PO SCH ×4 (10:40→22:17)
[2021-11-29] MEDS: NICOTINE 10 MG CARTRIDGE (INHALER) IH PRN ×2 (14:00→18:45)
[2021-11-29] MEDS: METHOCARBAMOL 500 MG TABLET PO PRN (17:34)
[2021-11-29] MEDS: THIAMINE HCL 100 MG TABLET (FP) PO SCH (22:49)
[2021-11-30] MEDS ORDERED: LORazepam 0.5 MG TABLET PO PRN
[2021-11-30] MEDS: traZODone HCL 50 MG TABLET (FP) PO PRN (03:43)
[2021-11-30] MEDS: METHOCARBAMOL 500 MG TABLET PO PRN (03:43)
[2021-11-30] MEDS: LORazepam 0.5 MG TABLET PO SCH ×4 (05:43→22:02)
[2021-11-30] MEDS: hydrOXYzine PAMOATE 25 MG CAPSULE (FP) PO SCH ×5 (05:43→22:02)
[2021-11-30] MEDS: risperiDONE 0.5 MG TABLET PO SCH ×2 (10:16→22:04)
[2021-11-30] MEDS: LACTULOSE 20 GM/30 ML UDC (FOR ORAL USE ONLY) PO SCH ×4 (10:16→22:02)
[2021-11-30] MEDS: PRENATAL VITAMINS W/ FOLIC ACID TABLET (FP) PO SCH (10:16)
[2021-11-30] MEDS: NICOTINE 14 MG/24 HOURS TOPICAL PATCH TD SCH (10:17)
[2021-11-30] MEDS: ELVITEG/COB/EMTRI/TENOF (GENVOYA) TABLET (NF) PO SCH (13:33)
[2021-11-30] MEDS ORDERED: traZODone HCL 100 MG TABLET (FP) PO SCH (22:00)
[2021-11-30] MEDS: THIAMINE HCL 100 MG TABLET (FP) PO SCH (22:02)
[2021-12-01] MEDS ORDERED: LORazepam 0.5 MG TABLET PO ONE (05:00)
[2021-12-01] MEDS: hydrOXYzine PAMOATE 25 MG CAPSULE (FP) PO SCH ×2 (05:46→10:18)
[2021-12-01 09:40] VITALS: BP 117/85; PULSE 90; RESP 18; TEMP 98
[2021-12-01] MEDS: ELVITEG/COB/EMTRI/TENOF (GENVOYA) TABLET (NF) PO SCH (10:17)
[2021-12-01] MEDS: LACTULOSE 20 GM/30 ML UDC (FOR ORAL USE ONLY) PO SCH (10:17)
[2021-12-01] MEDS: risperiDONE 0.5 MG TABLET PO SCH (10:17)
[2021-12-01] MEDS: PRENATAL VITAMINS W/ FOLIC ACID TABLET (FP) PO SCH (10:18)
[2021-12-01] MEDS: NICOTINE 14 MG/24 HOURS TOPICAL PATCH TD SCH (10:18)
== END 2021-12-01 10:45 | disposition home or self-care (01) | DRG 774 ==
LOC: YASAS 11:23 → Y6N 13:45
PROVIDERS: ADMIT Allergy & Immunology; ATTEND Surgery
PROC: HZ2ZZZZ Detoxification Services for Substance Abuse Treatment (ICD-10-PCS; principal; 2021-11-27)
DX: F10.230 Alcohol dependence with withdrawal, uncomplicated (principal); F14.20 Cocaine dependence, uncomplicated; F17.210 Nicotine dependence, cigarettes, uncomplicated; F25.1 Schizoaffective disorder, depressive type; F19.24 Other psychoactive substance dependence with psychoactive substance-induced mood disorder; F19.282 Other psychoactive substance dependence with psychoactive substance-induced sleep disorder; F39 Unspecified mood [affective] disorder; E72.20 Disorder of urea cycle metabolism, unspecified; B18.2 Chronic viral hepatitis C; Z21 Asymptomatic human immunodeficiency virus [HIV] infection status; R63.4 Abnormal weight loss; Z68.1 Body mass index [BMI] 19.9 or less, adult; H40.9 Unspecified glaucoma; Z88.0 Allergy status to penicillin; Z91.51 Personal history of suicidal behavior; Z56.0 Unemployment, unspecified
CPT/HCPCS: 36415; 80053; 82140; 85027; 86780; C9803-CS; U0003; U0005

== ENCOUNTER 2022-10-29 11:42 | Inpatient (IN) | payer OTHER ==
[2022-10-29 12:16] VITALS: BMI 15.6
[2022-10-29] MEDS ORDERED: LOPERAMIDE HCL 2 MG CAPSULE PO PRN (13:05)
[2022-10-29] MEDS ORDERED: IBUPROFEN 400 MG TABLET (FP) PO PRN (13:05)
[2022-10-29] MEDS ORDERED: MAG HYDROX/AL HYDROX/SIMETH 30 ML UNIT-DOSE CUP PO PRN (13:05)
[2022-10-29] MEDS ORDERED: guaiFENesin 600 MG TABLET.ER (FP) PO PRN (13:05)
[2022-10-29] MEDS ORDERED: IBUPROFEN 600 MG TABLET (FP) PO PRN (13:05)
[2022-10-29] MEDS ORDERED: P-EPHED 60MG/TRIPROLIDI 2.5MG TABLET PO PRN (13:05)
[2022-10-29] MEDS ORDERED: POLYETHYLENE GLYCOL (HEALTHYLAX) 3350 17 GM PACKET PO PRN (13:05)
[2022-10-29] MEDS ORDERED: AMMONIUM LACTATE 12% LOTION 225 GM BOTTLE TP PRN (13:05)
[2022-10-29] MEDS ORDERED: BENZONATATE 200 MG CAPSULE PO PRN (13:05)
[2022-10-29] MEDS ORDERED: BENZOCAINE/MENTHOL (CHLORASEPTIC ) LOZENGE MM PRN (13:05)
[2022-10-29] MEDS ORDERED: MAGNESIUM HYDROX 2400MG/30ML ORAL SUSPENSION 30 ML CUP PO PRN (13:05)
[2022-10-29] MEDS ORDERED: NICOTINE 7 MG/24 HOURS TOPICAL PATCH TD ONE (14:05)
[2022-10-29] MEDS: NICOTINE 7 MG/24 HOURS TOPICAL PATCH TD SCH (14:09)
[2022-10-29] MEDS ORDERED: TUBERCULIN PPD 5 TU/0.1ML VIAL ID ONE (14:57)
[2022-10-29] MEDS: PATIENT'S OWN MEDICATION (NON-FORMULARY) (Doravirine [Pifeltro] 100 MG Tablet) PO SCH (16:40)
[2022-10-29] MEDS: SULFAMETHOXAZOLE/TRIMETHOPRIM 800MG/160MG D.S. TABLET PO SCH (17:15)
[2022-10-29] MEDS: hydrOXYzine PAMOATE 25 MG CAPSULE (FP) PO PRN (19:24)
[2022-10-29] MEDS: DARUNAVIR/COB/EMTRI/TENOF (SYMTUZA) TABLET (NF) PO SCH (20:45)
[2022-10-29] MEDS: MELATONIN 5 MG TABLETS PO SCH (21:21)
[2022-10-29] MEDS: THIAMINE HCL 100 MG TABLET (FP) PO SCH (21:21)
[2022-10-29] MEDS: LIDOCAINE PATCH REMOVAL MC SCH (21:22)
[2022-10-30] MEDS: DARUNAVIR/COB/EMTRI/TENOF (SYMTUZA) TABLET (NF) PO SCH (10:32)
[2022-10-30] MEDS: SULFAMETHOXAZOLE/TRIMETHOPRIM 800MG/160MG D.S. TABLET PO SCH (10:32)
[2022-10-30] MEDS: PATIENT'S OWN MEDICATION (NON-FORMULARY) (Doravirine [Pifeltro] 100 MG Tablet) PO SCH (10:32)
[2022-10-30] MEDS: PRENATAL VITAMINS W/ FOLIC ACID TABLET (FP) PO SCH (10:32)
[2022-10-30] MEDS: NICOTINE 7 MG/24 HOURS TOPICAL PATCH TD SCH (10:36)
[2022-10-30] MEDS: LIDOCAINE 5% TOPICAL PATCH TP SCH (10:37)
[2022-10-30 14:02] LABS: POTASSIUM 4.1 mmol/L (3.5-5.1)
[2022-10-30 14:03] LABS: HEMATOCRIT 42.5 % (35.4-49); MCH 34.1 pg (25.7-33.7); MEAN CELL VOLUME 103.2 fl (80-96); MEAN PLT VOLUME 8.7 fl (7.5-11.1); PLATELET COUNT 166 10^3/uL (134-434); RBC 4.12 M/mm3 (4.00-5.60); WHITE BLOOD COUNT 4.8 K/mm3 (4.0-10.0)
[2022-10-30 14:11] LABS: ALBUMIN 3.4 g/dl (3.4-5.0); BLOOD UREA NITROGEN 23.7 mg/dL (7-18); CREATININE 1.4 mg/dL (0.55-1.3)
[2022-10-30 14:13] LABS: BILIRUBIN,TOTAL 0.2 mg/dL (0.2-1); TOT PROT 6.5 g/dl (6.4-8.2)
[2022-10-30 14:40] LABS: PH,URINE 6.5 (5.0-8.0); URINE APPEARANCE CLEAR; URINE BILIRUBIN NEGATIVE (NEGATIVE); URINE COLOR YELLOW; URINE GLUCOSE (UA) NEGATIVE (NEGATIVE); URINE KETONE NEGATIVE (NEGATIVE); URINE LEUK ESTERASE NEGATIVE (NEGATIVE); URINE NITRITE NEGATIVE (NEGATIVE); URINE PROTEIN NEGATIVE (NEGATIVE); URINE UROBILINOGEN 0.2 mg/dL (0.2-1.0)
[2022-10-30] MEDS: THIAMINE HCL 100 MG TABLET (FP) PO SCH (21:20)
[2022-10-30] MEDS: hydrOXYzine PAMOATE 25 MG CAPSULE (FP) PO PRN (21:20)
[2022-10-30] MEDS: MELATONIN 5 MG TABLETS PO SCH (21:20)
[2022-10-30] MEDS: LIDOCAINE PATCH REMOVAL MC SCH (21:21)
[2022-10-31] MEDS: PRENATAL VITAMINS W/ FOLIC ACID TABLET (FP) PO SCH (09:46)
[2022-10-31] MEDS: SULFAMETHOXAZOLE/TRIMETHOPRIM 800MG/160MG D.S. TABLET PO SCH (09:46)
[2022-10-31] MEDS: DARUNAVIR/COB/EMTRI/TENOF (SYMTUZA) TABLET (NF) PO SCH (09:46)
[2022-10-31] MEDS: PATIENT'S OWN MEDICATION (NON-FORMULARY) (Doravirine [Pifeltro] 100 MG Tablet) PO SCH (09:46)
[2022-10-31] MEDS: LIDOCAINE 5% TOPICAL PATCH TP SCH (09:47)
[2022-10-31] MEDS: NICOTINE 7 MG/24 HOURS TOPICAL PATCH TD SCH (09:48)
[2022-10-31] MEDS: COLLOIDAL OATMEAL 1 BAR EACH TP PRN (21:19)
[2022-10-31] MEDS: hydrOXYzine PAMOATE 25 MG CAPSULE (FP) PO PRN (21:20)
[2022-10-31] MEDS: MELATONIN 5 MG TABLETS PO SCH (21:20)
[2022-10-31] MEDS: THIAMINE HCL 100 MG TABLET (FP) PO SCH (21:20)
[2022-10-31] MEDS: LIDOCAINE PATCH REMOVAL MC SCH (21:20)
[2022-11-01] MEDS: PATIENT'S OWN MEDICATION (NON-FORMULARY) (Doravirine [Pifeltro] 100 MG Tablet) PO SCH (09:34)
[2022-11-01] MEDS: SULFAMETHOXAZOLE/TRIMETHOPRIM 800MG/160MG D.S. TABLET PO SCH (09:34)
[2022-11-01] MEDS: PRENATAL VITAMINS W/ FOLIC ACID TABLET (FP) PO SCH (09:35)
[2022-11-01] MEDS: DARUNAVIR/COB/EMTRI/TENOF (SYMTUZA) TABLET (NF) PO SCH (09:35)
[2022-11-01] MEDS: LIDOCAINE 5% TOPICAL PATCH TP SCH (09:36)
[2022-11-01] MEDS: NICOTINE 7 MG/24 HOURS TOPICAL PATCH TD SCH (09:36)
[2022-11-01] MEDS: ACETAMINOPHEN 325 MG TABLET (FP) PO PRN (14:10)
[2022-11-01] MEDS: LIDOCAINE PATCH REMOVAL MC SCH (21:27)
[2022-11-01] MEDS: MELATONIN 5 MG TABLETS PO SCH (21:27)
[2022-11-01] MEDS: THIAMINE HCL 100 MG TABLET (FP) PO SCH (21:27)
[2022-11-01] MEDS: HYDROCORTISONE 1% TOPICAL CREAM 30 GM TUBE TP PRN (21:28)
[2022-11-02] MEDS: SULFAMETHOXAZOLE/TRIMETHOPRIM 800MG/160MG D.S. TABLET PO SCH (09:39)
[2022-11-02] MEDS: PRENATAL VITAMINS W/ FOLIC ACID TABLET (FP) PO SCH (09:39)
[2022-11-02] MEDS: DARUNAVIR/COB/EMTRI/TENOF (SYMTUZA) TABLET (NF) PO SCH (09:39)
[2022-11-02] MEDS: PATIENT'S OWN MEDICATION (NON-FORMULARY) (Doravirine [Pifeltro] 100 MG Tablet) PO SCH (09:40)
[2022-11-02] MEDS ORDERED: HYDROCORTISONE 5 MG TABLET PO SCH (10:00)
[2022-11-02 11:26] LABS: BASO % 0.7 % (0-2.0); EOS % 3.3 % (0-4.5); HEMATOCRIT 42.5 % (35.4-49); MEAN CELL VOLUME 102.9 fl (80-96); MEAN PLT VOLUME 9.2 fl (7.5-11.1); MONO % 8.2 % (3.8-10.2); NEUT % 71.8 % (42.8-82.8); PLATELET COUNT 146 10^3/uL (134-434); RBC 4.13 M/mm3 (4.00-5.60); RDW 14.2 % (11.9-15.9); WHITE BLOOD COUNT 4.8 K/mm3 (4.0-10.0)
[2022-11-02] MEDS: HYDROCORTISONE 5 MG TABLET PO SCH (14:30)
[2022-11-02] MEDS: hydrOXYzine PAMOATE 25 MG CAPSULE (FP) PO PRN (21:39)
[2022-11-02] MEDS: THIAMINE HCL 100 MG TABLET (FP) PO SCH (21:39)
[2022-11-02] MEDS: risperiDONE 1 MG TABLET PO SCH (21:40)
[2022-11-02] MEDS: traZODone HCL 50 MG TABLET (FP) PO SCH (21:40)
[2022-11-02] MEDS: ESCITALOPRAM OXALATE 10 MG TABLET PO SCH (21:40)
[2022-11-02] MEDS: LIDOCAINE PATCH REMOVAL MC SCH (21:41)
[2022-11-03] MEDS: SULFAMETHOXAZOLE/TRIMETHOPRIM 800MG/160MG D.S. TABLET PO SCH (09:46)
[2022-11-03] MEDS: HYDROCORTISONE 5 MG TABLET PO SCH (09:47)
[2022-11-03] MEDS: PATIENT'S OWN MEDICATION (NON-FORMULARY) (Doravirine [Pifeltro] 100 MG Tablet) PO SCH (09:48)
[2022-11-03] MEDS: DARUNAVIR/COB/EMTRI/TENOF (SYMTUZA) TABLET (NF) PO SCH (09:48)
[2022-11-03] MEDS: PRENATAL VITAMINS W/ FOLIC ACID TABLET (FP) PO SCH (09:48)
[2022-11-03] MEDS: NICOTINE 7 MG/24 HOURS TOPICAL PATCH TD PRN (09:50)
[2022-11-03] MEDS: COLLOIDAL OATMEAL 1 BAR EACH TP PRN (20:05)
[2022-11-03] MEDS: ESCITALOPRAM OXALATE 10 MG TABLET PO SCH (21:53)
[2022-11-03] MEDS: traZODone HCL 50 MG TABLET (FP) PO SCH (21:53)
[2022-11-03] MEDS: risperiDONE 1 MG TABLET PO SCH (21:53)
[2022-11-03] MEDS: THIAMINE HCL 100 MG TABLET (FP) PO SCH (21:53)
[2022-11-03] MEDS: LIDOCAINE PATCH REMOVAL MC SCH (21:54)
[2022-11-04] MEDS: HYDROCORTISONE 5 MG TABLET PO SCH (09:28)
[2022-11-04] MEDS: SULFAMETHOXAZOLE/TRIMETHOPRIM 800MG/160MG D.S. TABLET PO SCH (09:28)
[2022-11-04] MEDS: PRENATAL VITAMINS W/ FOLIC ACID TABLET (FP) PO SCH (09:29)
[2022-11-04] MEDS: PATIENT'S OWN MEDICATION (NON-FORMULARY) (Doravirine [Pifeltro] 100 MG Tablet) PO SCH (09:29)
[2022-11-04] MEDS: DARUNAVIR/COB/EMTRI/TENOF (SYMTUZA) TABLET (NF) PO SCH (09:30)
[2022-11-04] MEDS: HYDROCORTISONE 1% TOPICAL CREAM 30 GM TUBE TP PRN (09:30)
[2022-11-04] MEDS: THIAMINE HCL 100 MG TABLET (FP) PO SCH (21:31)
[2022-11-04] MEDS: LIDOCAINE PATCH REMOVAL MC SCH (21:31)
[2022-11-04] MEDS: risperiDONE 1 MG TABLET PO SCH (21:31)
[2022-11-04] MEDS: ESCITALOPRAM OXALATE 10 MG TABLET PO SCH (21:31)
[2022-11-04] MEDS: traZODone HCL 50 MG TABLET (FP) PO SCH (21:31)
[2022-11-05] MEDS: PATIENT'S OWN MEDICATION (NON-FORMULARY) (Doravirine [Pifeltro] 100 MG Tablet) PO SCH (09:49)
[2022-11-05] MEDS: SULFAMETHOXAZOLE/TRIMETHOPRIM 800MG/160MG D.S. TABLET PO SCH (09:49)
[2022-11-05] MEDS: HYDROCORTISONE 5 MG TABLET PO SCH (09:49)
[2022-11-05] MEDS: DARUNAVIR/COB/EMTRI/TENOF (SYMTUZA) TABLET (NF) PO SCH (09:50)
[2022-11-05] MEDS: PRENATAL VITAMINS W/ FOLIC ACID TABLET (FP) PO SCH (09:50)
[2022-11-05] MEDS: traZODone HCL 50 MG TABLET (FP) PO SCH (21:25)
[2022-11-05] MEDS: risperiDONE 1 MG TABLET PO SCH (21:26)
[2022-11-05] MEDS: THIAMINE HCL 100 MG TABLET (FP) PO SCH (21:26)
[2022-11-05] MEDS: ESCITALOPRAM OXALATE 10 MG TABLET PO SCH (21:26)
[2022-11-05] MEDS: HYDROCORTISONE 1% TOPICAL CREAM 30 GM TUBE TP PRN (21:28)
[2022-11-05] MEDS: LIDOCAINE PATCH REMOVAL MC SCH (22:59)
[2022-11-06] MEDS: SULFAMETHOXAZOLE/TRIMETHOPRIM 800MG/160MG D.S. TABLET PO SCH (09:37)
[2022-11-06] MEDS: PRENATAL VITAMINS W/ FOLIC ACID TABLET (FP) PO SCH (09:37)
[2022-11-06] MEDS: DARUNAVIR/COB/EMTRI/TENOF (SYMTUZA) TABLET (NF) PO SCH (09:37)
[2022-11-06] MEDS: PATIENT'S OWN MEDICATION (NON-FORMULARY) (Doravirine [Pifeltro] 100 MG Tablet) PO SCH (09:38)
[2022-11-06] MEDS: HYDROCORTISONE 5 MG TABLET PO SCH (10:38)
[2022-11-06] MEDS: LIDOCAINE PATCH REMOVAL MC SCH (21:25)
[2022-11-06] MEDS: THIAMINE HCL 100 MG TABLET (FP) PO SCH (21:26)
[2022-11-06] MEDS: traZODone HCL 50 MG TABLET (FP) PO SCH (21:26)
[2022-11-06] MEDS: risperiDONE 1 MG TABLET PO SCH (21:26)
[2022-11-06] MEDS: ESCITALOPRAM OXALATE 10 MG TABLET PO SCH (21:26)
[2022-11-07] MEDS: NICOTINE 7 MG/24 HOURS TOPICAL PATCH TD PRN (08:56)
[2022-11-07] MEDS: HYDROCORTISONE 1% TOPICAL CREAM 30 GM TUBE TP PRN (08:56)
[2022-11-07] MEDS: PATIENT'S OWN MEDICATION (NON-FORMULARY) (Doravirine [Pifeltro] 100 MG Tablet) PO SCH (09:21)
[2022-11-07] MEDS: SULFAMETHOXAZOLE/TRIMETHOPRIM 800MG/160MG D.S. TABLET PO SCH (09:22)
[2022-11-07] MEDS: DARUNAVIR/COB/EMTRI/TENOF (SYMTUZA) TABLET (NF) PO SCH (09:22)
[2022-11-07] MEDS: HYDROCORTISONE 5 MG TABLET PO SCH (09:22)
[2022-11-07] MEDS: PRENATAL VITAMINS W/ FOLIC ACID TABLET (FP) PO SCH (09:23)
[2022-11-07] MEDS: COLLOIDAL OATMEAL 1 BAR EACH TP PRN (16:13)
[2022-11-07] MEDS: traZODone HCL 50 MG TABLET (FP) PO SCH (21:25)
[2022-11-07] MEDS: risperiDONE 1 MG TABLET PO SCH (21:25)
[2022-11-07] MEDS: THIAMINE HCL 100 MG TABLET (FP) PO SCH (21:25)
[2022-11-07] MEDS: ESCITALOPRAM OXALATE 10 MG TABLET PO SCH (21:25)
[2022-11-07] MEDS: LIDOCAINE PATCH REMOVAL MC SCH (21:26)
[2022-11-08] MEDS: DARUNAVIR/COB/EMTRI/TENOF (SYMTUZA) TABLET (NF) PO SCH (09:49)
[2022-11-08] MEDS: PATIENT'S OWN MEDICATION (NON-FORMULARY) (Doravirine [Pifeltro] 100 MG Tablet) PO SCH (09:49)
[2022-11-08] MEDS: SULFAMETHOXAZOLE/TRIMETHOPRIM 800MG/160MG D.S. TABLET PO SCH (09:49)
[2022-11-08] MEDS: PRENATAL VITAMINS W/ FOLIC ACID TABLET (FP) PO SCH (09:50)
[2022-11-08] MEDS: HYDROCORTISONE 5 MG TABLET PO SCH (09:50)
[2022-11-08] MEDS: NICOTINE 7 MG/24 HOURS TOPICAL PATCH TD PRN (09:51)
[2022-11-08] MEDS: THIAMINE HCL 100 MG TABLET (FP) PO SCH (21:08)
[2022-11-08] MEDS: risperiDONE 1 MG TABLET PO SCH (21:09)
[2022-11-08] MEDS: traZODone HCL 50 MG TABLET (FP) PO SCH (21:09)
[2022-11-08] MEDS: ESCITALOPRAM OXALATE 10 MG TABLET PO SCH (21:09)
[2022-11-08] MEDS: HYDROCORTISONE 1% TOPICAL CREAM 30 GM TUBE TP PRN (21:09)
[2022-11-08] MEDS: LIDOCAINE PATCH REMOVAL MC SCH (21:09)
[2022-11-09] MEDS: SULFAMETHOXAZOLE/TRIMETHOPRIM 800MG/160MG D.S. TABLET PO SCH (09:23)
[2022-11-09] MEDS: HYDROCORTISONE 5 MG TABLET PO SCH (09:24)
[2022-11-09] MEDS: PRENATAL VITAMINS W/ FOLIC ACID TABLET (FP) PO SCH (09:24)
[2022-11-09] MEDS: DARUNAVIR/COB/EMTRI/TENOF (SYMTUZA) TABLET (NF) PO SCH (09:24)
[2022-11-09] MEDS: NICOTINE 7 MG/24 HOURS TOPICAL PATCH TD PRN (09:24)
[2022-11-09] MEDS: PATIENT'S OWN MEDICATION (NON-FORMULARY) (Doravirine [Pifeltro] 100 MG Tablet) PO SCH (09:24)
[2022-11-09] MEDS: HYDROCORTISONE 1% TOPICAL CREAM 30 GM TUBE TP PRN (09:25)
[2022-11-09] MEDS: LIDOCAINE PATCH REMOVAL MC SCH (21:16)
[2022-11-09] MEDS: traZODone HCL 50 MG TABLET (FP) PO SCH (21:16)
[2022-11-09] MEDS: ESCITALOPRAM OXALATE 10 MG TABLET PO SCH (21:16)
[2022-11-09] MEDS: THIAMINE HCL 100 MG TABLET (FP) PO SCH (21:16)
[2022-11-09] MEDS: risperiDONE 1 MG TABLET PO SCH (21:16)
[2022-11-10] MEDS: SULFAMETHOXAZOLE/TRIMETHOPRIM 800MG/160MG D.S. TABLET PO SCH (09:53)
[2022-11-10] MEDS: HYDROCORTISONE 5 MG TABLET PO SCH (09:53)
[2022-11-10] MEDS: PATIENT'S OWN MEDICATION (NON-FORMULARY) (Doravirine [Pifeltro] 100 MG Tablet) PO SCH (09:53)
[2022-11-10] MEDS: PRENATAL VITAMINS W/ FOLIC ACID TABLET (FP) PO SCH (09:53)
[2022-11-10] MEDS: DARUNAVIR/COB/EMTRI/TENOF (SYMTUZA) TABLET (NF) PO SCH (09:53)
[2022-11-10] MEDS: HYDROCORTISONE 1% TOPICAL CREAM 30 GM TUBE TP PRN (09:54)
[2022-11-10] MEDS: NICOTINE 7 MG/24 HOURS TOPICAL PATCH TD PRN (09:54)
[2022-11-10] MEDS: COLLOIDAL OATMEAL 1 BAR EACH TP PRN (13:49)
[2022-11-10] MEDS: THIAMINE HCL 100 MG TABLET (FP) PO SCH (20:59)
[2022-11-10] MEDS: LIDOCAINE PATCH REMOVAL MC SCH (20:59)
[2022-11-10] MEDS: traZODone HCL 50 MG TABLET (FP) PO SCH (21:00)
[2022-11-10] MEDS: ESCITALOPRAM OXALATE 10 MG TABLET PO SCH (21:00)
[2022-11-10] MEDS: risperiDONE 1 MG TABLET PO SCH (21:00)
[2022-11-10] MEDS: MAG HYDROX/AL HYDROX/SIMETH 30 ML UNIT-DOSE CUP PO PRN (22:39)
[2022-11-11] MEDS: HYDROCORTISONE 5 MG TABLET PO SCH (09:46)
[2022-11-11] MEDS: SULFAMETHOXAZOLE/TRIMETHOPRIM 800MG/160MG D.S. TABLET PO SCH (09:46)
[2022-11-11] MEDS: PATIENT'S OWN MEDICATION (NON-FORMULARY) (Doravirine [Pifeltro] 100 MG Tablet) PO SCH (09:47)
[2022-11-11] MEDS: DARUNAVIR/COB/EMTRI/TENOF (SYMTUZA) TABLET (NF) PO SCH (09:47)
[2022-11-11] MEDS: PRENATAL VITAMINS W/ FOLIC ACID TABLET (FP) PO SCH (09:47)
[2022-11-11] MEDS: NICOTINE 7 MG/24 HOURS TOPICAL PATCH TD PRN (09:49)
[2022-11-11] MEDS: THIAMINE HCL 100 MG TABLET (FP) PO SCH (21:18)
[2022-11-11] MEDS: LIDOCAINE PATCH REMOVAL MC SCH (21:18)
[2022-11-11] MEDS: risperiDONE 1 MG TABLET PO SCH (21:18)
[2022-11-11] MEDS: ESCITALOPRAM OXALATE 10 MG TABLET PO SCH (21:18)
[2022-11-11] MEDS: traZODone HCL 50 MG TABLET (FP) PO SCH (21:18)
[2022-11-11] MEDS: MAG HYDROX/AL HYDROX/SIMETH 30 ML UNIT-DOSE CUP PO PRN (21:19)
[2022-11-12] MEDS: SULFAMETHOXAZOLE/TRIMETHOPRIM 800MG/160MG D.S. TABLET PO SCH (10:07)
[2022-11-12] MEDS: DARUNAVIR/COB/EMTRI/TENOF (SYMTUZA) TABLET (NF) PO SCH (10:07)
[2022-11-12] MEDS: NICOTINE 7 MG/24 HOURS TOPICAL PATCH TD PRN (10:07)
[2022-11-12] MEDS: PRENATAL VITAMINS W/ FOLIC ACID TABLET (FP) PO SCH (10:07)
[2022-11-12] MEDS: DORAVIRINE 100 MG PO SCH (10:08)
[2022-11-12] MEDS: HYDROCORTISONE 5 MG TABLET PO SCH (10:08)
[2022-11-12] MEDS: ESCITALOPRAM OXALATE 10 MG TABLET PO SCH (21:35)
[2022-11-12] MEDS: traZODone HCL 50 MG TABLET (FP) PO SCH (21:35)
[2022-11-12] MEDS: risperiDONE 1 MG TABLET PO SCH (21:35)
[2022-11-12] MEDS: THIAMINE HCL 100 MG TABLET (FP) PO SCH (21:35)
[2022-11-12] MEDS: LIDOCAINE PATCH REMOVAL MC SCH (21:36)
[2022-11-12] MEDS: MAG HYDROX/AL HYDROX/SIMETH 30 ML UNIT-DOSE CUP PO PRN (22:15)
[2022-11-13] MEDS: PRENATAL VITAMINS W/ FOLIC ACID TABLET (FP) PO SCH (09:43)
[2022-11-13] MEDS: HYDROCORTISONE 5 MG TABLET PO SCH (09:44)
[2022-11-13] MEDS: SULFAMETHOXAZOLE/TRIMETHOPRIM 800MG/160MG D.S. TABLET PO SCH (09:44)
[2022-11-13] MEDS: NICOTINE 7 MG/24 HOURS TOPICAL PATCH TD PRN (09:45)
[2022-11-13] MEDS: DORAVIRINE 100 MG PO SCH (09:45)
[2022-11-13] MEDS: DARUNAVIR/COB/EMTRI/TENOF (SYMTUZA) TABLET (NF) PO SCH (09:45)
[2022-11-13] MEDS: LIDOCAINE 5% TOPICAL PATCH TP PRN (15:29)
[2022-11-13] MEDS: traZODone HCL 50 MG TABLET (FP) PO SCH (21:04)
[2022-11-13] MEDS: THIAMINE HCL 100 MG TABLET (FP) PO SCH (21:04)
[2022-11-13] MEDS: LIDOCAINE PATCH REMOVAL MC SCH (21:05)
[2022-11-13] MEDS: ESCITALOPRAM OXALATE 10 MG TABLET PO SCH (21:05)
[2022-11-13] MEDS: risperiDONE 1 MG TABLET PO SCH (21:05)
[2022-11-14] MEDS: PRENATAL VITAMINS W/ FOLIC ACID TABLET (FP) PO SCH (09:40)
[2022-11-14] MEDS: SULFAMETHOXAZOLE/TRIMETHOPRIM 800MG/160MG D.S. TABLET PO SCH (09:40)
[2022-11-14] MEDS: DARUNAVIR/COB/EMTRI/TENOF (SYMTUZA) TABLET (NF) PO SCH (09:40)
[2022-11-14] MEDS: HYDROCORTISONE 5 MG TABLET PO SCH (09:40)
[2022-11-14] MEDS: DORAVIRINE 100 MG PO SCH (09:40)
[2022-11-14] MEDS: LIDOCAINE 5% TOPICAL PATCH TP PRN (09:41)
[2022-11-14] MEDS: NICOTINE 7 MG/24 HOURS TOPICAL PATCH TD PRN (09:41)
[2022-11-14] MEDS: THIAMINE HCL 100 MG TABLET (FP) PO SCH (21:16)
[2022-11-14] MEDS: traZODone HCL 50 MG TABLET (FP) PO SCH (21:16)
[2022-11-14] MEDS: risperiDONE 1 MG TABLET PO SCH (21:16)
[2022-11-14] MEDS: ESCITALOPRAM OXALATE 10 MG TABLET PO SCH (21:16)
[2022-11-14] MEDS: MAG HYDROX/AL HYDROX/SIMETH 30 ML UNIT-DOSE CUP PO PRN (21:17)
[2022-11-14] MEDS: LIDOCAINE PATCH REMOVAL MC SCH (22:12)
[2022-11-15] MEDS: PRENATAL VITAMINS W/ FOLIC ACID TABLET (FP) PO SCH (09:52)
[2022-11-15] MEDS: DARUNAVIR/COB/EMTRI/TENOF (SYMTUZA) TABLET (NF) PO SCH (09:52)
[2022-11-15] MEDS: SULFAMETHOXAZOLE/TRIMETHOPRIM 800MG/160MG D.S. TABLET PO SCH (09:53)
[2022-11-15] MEDS: HYDROCORTISONE 5 MG TABLET PO SCH (09:53)
[2022-11-15] MEDS: DORAVIRINE 100 MG PO SCH (09:54)
[2022-11-15] MEDS: NICOTINE 7 MG/24 HOURS TOPICAL PATCH TD PRN (09:56)
[2022-11-15] MEDS: THIAMINE HCL 100 MG TABLET (FP) PO SCH (21:08)
[2022-11-15] MEDS: risperiDONE 1 MG TABLET PO SCH (21:08)
[2022-11-15] MEDS: traZODone HCL 50 MG TABLET (FP) PO SCH (21:08)
[2022-11-15] MEDS: ESCITALOPRAM OXALATE 10 MG TABLET PO SCH (21:09)
[2022-11-15] MEDS: LIDOCAINE PATCH REMOVAL MC SCH (21:09)
[2022-11-16] MEDS: SULFAMETHOXAZOLE/TRIMETHOPRIM 800MG/160MG D.S. TABLET PO SCH (09:40)
[2022-11-16] MEDS: DARUNAVIR/COB/EMTRI/TENOF (SYMTUZA) TABLET (NF) PO SCH (09:41)
[2022-11-16] MEDS: HYDROCORTISONE 5 MG TABLET PO SCH (09:41)
[2022-11-16] MEDS: PRENATAL VITAMINS W/ FOLIC ACID TABLET (FP) PO SCH (09:41)
[2022-11-16] MEDS: NICOTINE 7 MG/24 HOURS TOPICAL PATCH TD PRN (09:42)
[2022-11-16] MEDS ORDERED: DARUNAVIR/COB/EMTRI/TENOF (SYMTUZA) TABLET (NF) PO SCH (10:34)
[2022-11-16] MEDS: DORAVIRINE 100 MG PO SCH (10:34)
[2022-11-16] MEDS: traZODone HCL 50 MG TABLET (FP) PO SCH (21:30)
[2022-11-16] MEDS: risperiDONE 1 MG TABLET PO SCH (21:30)
[2022-11-16] MEDS: LIDOCAINE PATCH REMOVAL MC SCH (21:30)
[2022-11-16] MEDS: ESCITALOPRAM OXALATE 10 MG TABLET PO SCH (21:30)
[2022-11-16] MEDS: THIAMINE HCL 100 MG TABLET (FP) PO SCH (21:30)
[2022-11-16] MEDS: ACETAMINOPHEN 325 MG TABLET (FP) PO PRN (21:52)
[2022-11-17] MEDS: NICOTINE 7 MG/24 HOURS TOPICAL PATCH TD PRN (09:56)
[2022-11-17] MEDS: DORAVIRINE 100 MG PO SCH (09:57)
[2022-11-17] MEDS: HYDROCORTISONE 5 MG TABLET PO SCH (09:57)
[2022-11-17] MEDS: PRENATAL VITAMINS W/ FOLIC ACID TABLET (FP) PO SCH (09:57)
[2022-11-17] MEDS: SULFAMETHOXAZOLE/TRIMETHOPRIM 800MG/160MG D.S. TABLET PO SCH (09:57)
[2022-11-17] MEDS ORDERED: DARUNAVIR/COB/EMTRI/TENOF (SYMTUZA) TABLET (NF) PO SCH (10:00)
[2022-11-17] MEDS: ACETAMINOPHEN 325 MG TABLET (FP) PO PRN (17:38)
[2022-11-17] MEDS: traZODone HCL 50 MG TABLET (FP) PO SCH (21:05)
[2022-11-17] MEDS: risperiDONE 1 MG TABLET PO SCH (21:05)
[2022-11-17] MEDS: ESCITALOPRAM OXALATE 10 MG TABLET PO SCH (21:05)
[2022-11-17] MEDS: THIAMINE HCL 100 MG TABLET (FP) PO SCH (21:05)
[2022-11-17] MEDS: LIDOCAINE PATCH REMOVAL MC SCH (21:05)
[2022-11-18] MEDS: SULFAMETHOXAZOLE/TRIMETHOPRIM 800MG/160MG D.S. TABLET PO SCH (09:51)
[2022-11-18] MEDS: DORAVIRINE 100 MG PO SCH (09:52)
[2022-11-18] MEDS: PRENATAL VITAMINS W/ FOLIC ACID TABLET (FP) PO SCH (09:52)
[2022-11-18] MEDS: HYDROCORTISONE 5 MG TABLET PO SCH (09:52)
[2022-11-18] MEDS: NICOTINE 7 MG/24 HOURS TOPICAL PATCH TD PRN (09:53)
[2022-11-18] MEDS ORDERED: DARUNAVIR/COB/EMTRI/TENOF (SYMTUZA) TABLET (NF) PO SCH (12:00)
[2022-11-18] MEDS: ACETAMINOPHEN 325 MG TABLET (FP) PO PRN (14:50)
[2022-11-18] MEDS: COLLOIDAL OATMEAL 1 BAR EACH TP PRN (16:26)
[2022-11-18] MEDS: MAG HYDROX/AL HYDROX/SIMETH 30 ML UNIT-DOSE CUP PO PRN (19:59)
[2022-11-18] MEDS: risperiDONE 1 MG TABLET PO SCH (21:12)
[2022-11-18] MEDS: THIAMINE HCL 100 MG TABLET (FP) PO SCH (21:12)
[2022-11-18] MEDS: traZODone HCL 50 MG TABLET (FP) PO SCH (21:12)
[2022-11-18] MEDS: ESCITALOPRAM OXALATE 10 MG TABLET PO SCH (21:12)
[2022-11-18] MEDS: LIDOCAINE PATCH REMOVAL MC SCH (21:13)
[2022-11-19 07:29] VITALS: BP 112/73; PULSE 84; RESP 18; TEMP 96.9
[2022-11-19] MEDS: PRENATAL VITAMINS W/ FOLIC ACID TABLET (FP) PO SCH (09:03)
[2022-11-19] MEDS: HYDROCORTISONE 5 MG TABLET PO SCH (09:03)
[2022-11-19] MEDS: SULFAMETHOXAZOLE/TRIMETHOPRIM 800MG/160MG D.S. TABLET PO SCH (09:03)
[2022-11-19] MEDS: DORAVIRINE 100 MG PO SCH (09:03)
== END 2022-11-19 09:11 | disposition home or self-care (01) | DRG 772 ==
LOC: YASAS 11:42 → Y3E 14:11
PROVIDERS: ADMIT Allergy & Immunology; ATTEND Psychiatry & Neurology Pain Medicine
PROC: HZ42ZZZ Group Counseling for Substance Abuse Treatment, Cognitive-Behavioral (ICD-10-PCS; principal; 2022-10-29)
DX: F14.20 Cocaine dependence, uncomplicated (principal); F10.20 Alcohol dependence, uncomplicated; F17.210 Nicotine dependence, cigarettes, uncomplicated; F19.282 Other psychoactive substance dependence with psychoactive substance-induced sleep disorder; F25.9 Schizoaffective disorder, unspecified; F32.A Depression, unspecified; Z21 Asymptomatic human immunodeficiency virus [HIV] infection status; L85.3 Xerosis cutis; R00.2 Palpitations; Z86.19 Personal history of other infectious and parasitic diseases; Z20.822 Contact with and (suspected) exposure to COVID-19; Z88.0 Allergy status to penicillin
CPT/HCPCS: 36415; 80053; 81003; 82607; 82746; 85025; 85027; 86780; 87635; 87811; 93005; 93010

== ENCOUNTER 2022-12-03 12:31 | Inpatient (IN) | payer OTHER ==
[2022-12-03 13:13] VITALS: BMI 14.9
[2022-12-03] MEDS ORDERED: POLYETHYLENE GLYCOL (HEALTHYLAX) 3350 17 GM PACKET PO PRN (13:51)
[2022-12-03] MEDS ORDERED: BENZONATATE 200 MG CAPSULE PO PRN (13:51)
[2022-12-03] MEDS ORDERED: BISMUTH SUBSALICYLATE 524 MG/30 ML PO PRN (13:51)
[2022-12-03] MEDS ORDERED: ACETAMINOPHEN 325 MG TABLET (FP) PO PRN (13:51)
[2022-12-03] MEDS ORDERED: ONDANSETRON *ODT* 4 MG TABLET SL PRN (13:51)
[2022-12-03] MEDS ORDERED: BENZOCAINE/MENTHOL (CHLORASEPTIC ) LOZENGE MM PRN (13:51)
[2022-12-03] MEDS ORDERED: IBUPROFEN 400 MG TABLET (FP) PO PRN (13:51)
[2022-12-03] MEDS ORDERED: NALOXONE HCL 0.4 MG/ML VIAL IM PRN (13:51)
[2022-12-03] MEDS ORDERED: LOPERAMIDE HCL 2 MG CAPSULE PO PRN (13:51)
[2022-12-03] MEDS ORDERED: NALOXONE HCL (KLOXXADO) 8 MG SPRAY NS PRN (13:51)
[2022-12-03] MEDS ORDERED: MAG HYDROX/AL HYDROX/SIMETH 30 ML UNIT-DOSE CUP PO PRN (13:51)
[2022-12-03] MEDS ORDERED: guaiFENesin 600 MG TABLET.ER (FP) PO PRN (13:51)
[2022-12-03] MEDS ORDERED: IBUPROFEN 600 MG TABLET (FP) PO PRN (13:51)
[2022-12-03] MEDS ORDERED: DICYCLOMINE HCL 10 MG CAPSULE PO PRN (13:51)
[2022-12-03] MEDS ORDERED: MAGNESIUM HYDROX 2400MG/30ML ORAL SUSPENSION 30 ML CUP PO PRN (13:51)
[2022-12-03] MEDS ORDERED: ESCITALOPRAM OXALATE 10 MG TABLET PO SCH (22:00)
[2022-12-03] MEDS: risperiDONE 1 MG TABLET PO SCH (22:22)
[2022-12-03] MEDS: THIAMINE HCL 100 MG TABLET (FP) PO SCH (22:22)
[2022-12-03] MEDS: traZODone HCL 50 MG TABLET (FP) PO SCH (22:23)
[2022-12-03] MEDS: MELATONIN 5 MG TABLETS PO SCH (22:24)
[2022-12-04 09:45] LABS: POTASSIUM 4.3 mmol/L (3.5-5.1)
[2022-12-04 09:46] LABS: HEMOGLOBIN 13.5 GM/dL (11.7-16.9); MEAN CELL VOLUME 102.9 fl (80-96); MEAN PLT VOLUME 8.6 fl (7.5-11.1); PLATELET COUNT 186 10^3/uL (134-434); RBC 3.98 M/mm3 (4.00-5.60); RDW 14.2 % (11.9-15.9); WHITE BLOOD COUNT 5.7 K/mm3 (4.0-10.0)
[2022-12-04] MEDS: ESCITALOPRAM OXALATE 10 MG TABLET PO SCH (10:22)
[2022-12-04] MEDS: PRENATAL VITAMINS W/ FOLIC ACID TABLET (FP) PO SCH (10:22)
[2022-12-04 10:33] LABS: TOT PROT 6.6 g/dl (6.4-8.2)
[2022-12-04 10:34] LABS: ALBUMIN 3.4 g/dl (3.4-5.0); BILIRUBIN,TOTAL 0.2 mg/dL (0.2-1); CALCIUM 9.6 mg/dL (8.5-10.1)
[2022-12-04 10:35] LABS: BLOOD UREA NITROGEN 18.7 mg/dL (7-18)
[2022-12-04 10:37] LABS: CREATININE 1.2 mg/dL (0.55-1.3)
[2022-12-04] MEDS: THIAMINE HCL 100 MG TABLET (FP) PO SCH (22:26)
[2022-12-04] MEDS: risperiDONE 1 MG TABLET PO SCH (22:26)
[2022-12-04] MEDS: traZODone HCL 50 MG TABLET (FP) PO SCH (22:27)
[2022-12-04] MEDS: MELATONIN 5 MG TABLETS PO SCH (22:27)
[2022-12-05 09:03] VITALS: BP 121/71; PULSE 76; RESP 18; TEMP 97.6
[2022-12-05] MEDS: ESCITALOPRAM OXALATE 10 MG TABLET PO SCH (11:06)
[2022-12-05] MEDS: PRENATAL VITAMINS W/ FOLIC ACID TABLET (FP) PO SCH (11:06)
== END 2022-12-05 09:45 | disposition home or self-care (01) | DRG 774 ==
LOC: YASAS 12:31 → Y6N 15:31
PROVIDERS: ADMIT Allergy & Immunology; ATTEND Surgery
PROC: HZ2ZZZZ Detoxification Services for Substance Abuse Treatment (ICD-10-PCS; principal; 2022-12-03)
DX: F10.20 Alcohol dependence, uncomplicated (principal); F14.20 Cocaine dependence, uncomplicated; F17.210 Nicotine dependence, cigarettes, uncomplicated; F25.1 Schizoaffective disorder, depressive type; Z21 Asymptomatic human immunodeficiency virus [HIV] infection status; B18.2 Chronic viral hepatitis C; Z88.0 Allergy status to penicillin; Z91.013 Allergy to seafood
CPT/HCPCS: 36415; 80053; 85027; 86780; 87635

== ENCOUNTER 2022-12-31 11:04 | Inpatient (IN) | payer OTHER ==
[2022-12-31 11:42] VITALS: BMI 15.6
[2022-12-31] MEDS ORDERED: P-EPHED 60MG/TRIPROLIDI 2.5MG TABLET PO PRN (19:07)
[2022-12-31] MEDS ORDERED: ACETAMINOPHEN 325 MG TABLET (FP) PO PRN (19:07)
[2022-12-31] MEDS ORDERED: IBUPROFEN 400 MG TABLET (FP) PO PRN (19:07)
[2022-12-31] MEDS ORDERED: MAGNESIUM HYDROX 2400MG/30ML ORAL SUSPENSION 30 ML CUP PO PRN (19:07)
[2022-12-31] MEDS ORDERED: hydrOXYzine PAMOATE 25 MG CAPSULE (FP) PO PRN (19:07)
[2022-12-31] MEDS ORDERED: BENZONATATE 200 MG CAPSULE PO PRN (19:07)
[2022-12-31] MEDS ORDERED: BENZOCAINE/MENTHOL (CHLORASEPTIC ) LOZENGE MM PRN (19:07)
[2022-12-31] MEDS ORDERED: LOPERAMIDE HCL 2 MG CAPSULE PO PRN (19:07)
[2022-12-31] MEDS ORDERED: guaiFENesin 600 MG TABLET.ER (FP) PO PRN (19:07)
[2022-12-31] MEDS ORDERED: POLYETHYLENE GLYCOL (HEALTHYLAX) 3350 17 GM PACKET PO PRN (19:07)
[2022-12-31] MEDS ORDERED: COLLOIDAL OATMEAL 1 BAR EACH TP PRN (19:07)
[2022-12-31] MEDS: THIAMINE HCL 100 MG TABLET (FP) PO SCH (21:19)
[2022-12-31] MEDS ORDERED: MELATONIN 5 MG TABLETS PO SCH (22:00)
[2023-01-01] MEDS: PRENATAL VITAMINS W/ FOLIC ACID TABLET (FP) PO SCH ×2 (10:38→11:22)
[2023-01-01 11:46] LABS: HEMATOCRIT 41.1 % (35.4-49); HEMOGLOBIN 13.6 GM/dL (11.7-16.9); MCH 33.6 pg (25.7-33.7); MEAN CELL VOLUME 101.8 fl (80-96); MEAN PLT VOLUME 8.5 fl (7.5-11.1); PLATELET COUNT 171 10^3/uL (134-434); RBC 4.04 M/mm3 (4.00-5.60); RDW 13.6 % (11.9-15.9); WHITE BLOOD COUNT 6.1 K/mm3 (4.0-10.0)
[2023-01-01 11:59] LABS: POTASSIUM 4.1 mmol/L (3.5-5.1)
[2023-01-01 12:03] LABS: ALBUMIN 3.2 g/dl (3.4-5.0)
[2023-01-01 12:05] LABS: BLOOD UREA NITROGEN 21.4 mg/dL (7-18)
[2023-01-01 12:06] LABS: CREATININE 1.4 mg/dL (0.55-1.3)
[2023-01-01 12:08] LABS: BILIRUBIN,TOTAL 0.8 mg/dL (0.2-1); TOT PROT 6.1 g/dl (6.4-8.2)
[2023-01-01 14:32] LABS: PH,URINE 5.5 (5.0-8.0); URINE APPEARANCE Clear; URINE BILIRUBIN Negative (NEGATIVE); URINE COLOR Yellow; URINE GLUCOSE (UA) Negative (NEGATIVE); URINE KETONE Negative (NEGATIVE); URINE LEUK ESTERASE Negative (NEGATIVE); URINE NITRITE Negative (NEGATIVE); URINE PROTEIN Negative (NEGATIVE); URINE UROBILINOGEN 0.2 mg/dL (0.2-1.0)
[2023-01-01] MEDS ORDERED: SULFAMETHOXAZOLE/TRIMETHOPRIM 800MG/160MG D.S. TABLET PO SCH (15:15)
[2023-01-01] MEDS ORDERED: DARUNAVIR/COB/EMTRI/TENOF (SYMTUZA) TABLET (NF) PO SCH (18:00)
[2023-01-01] MEDS: SULFAMETHOXAZOLE/TRIMETHOPRIM 800MG/160MG D.S. TABLET PO SCH (18:47)
[2023-01-01] MEDS: SYMTUZA PO SCH (19:17)
[2023-01-01] MEDS: THIAMINE HCL 100 MG TABLET (FP) PO SCH (21:21)
[2023-01-01] MEDS: risperiDONE 1 MG TABLET PO SCH (21:22)
[2023-01-01] MEDS: traZODone HCL 50 MG TABLET (FP) PO SCH (21:22)
[2023-01-01] MEDS: ESCITALOPRAM OXALATE 10 MG TABLET PO SCH (21:22)
[2023-01-02] MEDS: SYMTUZA PO SCH (07:38)
[2023-01-02] MEDS: SULFAMETHOXAZOLE/TRIMETHOPRIM 800MG/160MG D.S. TABLET PO SCH (10:18)
[2023-01-02] MEDS: PRENATAL VITAMINS W/ FOLIC ACID TABLET (FP) PO SCH (10:18)
[2023-01-02] MEDS: IBUPROFEN 600 MG TABLET (FP) PO PRN (18:14)
[2023-01-02] MEDS: THIAMINE HCL 100 MG TABLET (FP) PO SCH (21:13)
[2023-01-02] MEDS: ESCITALOPRAM OXALATE 10 MG TABLET PO SCH (21:14)
[2023-01-02] MEDS: traZODone HCL 50 MG TABLET (FP) PO SCH (21:14)
[2023-01-02] MEDS: risperiDONE 1 MG TABLET PO SCH (21:14)
[2023-01-03] MEDS: SYMTUZA PO SCH (07:03)
[2023-01-03] MEDS: PRENATAL VITAMINS W/ FOLIC ACID TABLET (FP) PO SCH (10:07)
[2023-01-03] MEDS: SULFAMETHOXAZOLE/TRIMETHOPRIM 800MG/160MG D.S. TABLET PO SCH (10:07)
[2023-01-03] MEDS: traZODone HCL 50 MG TABLET (FP) PO SCH (21:11)
[2023-01-03] MEDS: THIAMINE HCL 100 MG TABLET (FP) PO SCH (21:11)
[2023-01-03] MEDS: ESCITALOPRAM OXALATE 10 MG TABLET PO SCH (21:11)
[2023-01-03] MEDS: risperiDONE 1 MG TABLET PO SCH (21:11)
[2023-01-03] MEDS: MAG HYDROX/AL HYDROX/SIMETH 30 ML UNIT-DOSE CUP PO PRN (21:34)
[2023-01-04] MEDS: SYMTUZA PO SCH (07:06)
[2023-01-04] MEDS: SULFAMETHOXAZOLE/TRIMETHOPRIM 800MG/160MG D.S. TABLET PO SCH (10:18)
[2023-01-04] MEDS: PRENATAL VITAMINS W/ FOLIC ACID TABLET (FP) PO SCH (10:18)
[2023-01-04] MEDS: THIAMINE HCL 100 MG TABLET (FP) PO SCH (21:22)
[2023-01-04] MEDS: risperiDONE 1 MG TABLET PO SCH (21:22)
[2023-01-04] MEDS: ESCITALOPRAM OXALATE 10 MG TABLET PO SCH (21:22)
[2023-01-04] MEDS: traZODone HCL 50 MG TABLET (FP) PO SCH (21:22)
[2023-01-05] MEDS: SYMTUZA PO SCH (07:01)
[2023-01-05] MEDS: SULFAMETHOXAZOLE/TRIMETHOPRIM 800MG/160MG D.S. TABLET PO SCH (09:13)
[2023-01-05] MEDS: PRENATAL VITAMINS W/ FOLIC ACID TABLET (FP) PO SCH (09:13)
[2023-01-05] MEDS: IBUPROFEN 600 MG TABLET (FP) PO PRN (17:35)
[2023-01-05] MEDS: THIAMINE HCL 100 MG TABLET (FP) PO SCH (21:05)
[2023-01-05] MEDS: ESCITALOPRAM OXALATE 10 MG TABLET PO SCH (21:06)
[2023-01-05] MEDS: risperiDONE 1 MG TABLET PO SCH (21:06)
[2023-01-05] MEDS: traZODone HCL 50 MG TABLET (FP) PO SCH (21:06)
[2023-01-06] MEDS: SYMTUZA PO SCH (07:02)
[2023-01-06] MEDS: PRENATAL VITAMINS W/ FOLIC ACID TABLET (FP) PO SCH (09:20)
[2023-01-06] MEDS: SULFAMETHOXAZOLE/TRIMETHOPRIM 800MG/160MG D.S. TABLET PO SCH (09:20)
[2023-01-06] MEDS: risperiDONE 1 MG TABLET PO SCH (21:09)
[2023-01-06] MEDS: traZODone HCL 50 MG TABLET (FP) PO SCH (21:09)
[2023-01-06] MEDS: ESCITALOPRAM OXALATE 10 MG TABLET PO SCH (21:09)
[2023-01-06] MEDS: IBUPROFEN 600 MG TABLET (FP) PO PRN (21:10)
[2023-01-06] MEDS: THIAMINE HCL 100 MG TABLET (FP) PO SCH (21:10)
[2023-01-07] MEDS: SYMTUZA PO SCH (07:00)
[2023-01-07] MEDS: PRENATAL VITAMINS W/ FOLIC ACID TABLET (FP) PO SCH (09:25)
[2023-01-07] MEDS: SULFAMETHOXAZOLE/TRIMETHOPRIM 800MG/160MG D.S. TABLET PO SCH (09:25)
[2023-01-07] MEDS: traZODone HCL 50 MG TABLET (FP) PO SCH (21:09)
[2023-01-07] MEDS: ESCITALOPRAM OXALATE 10 MG TABLET PO SCH (21:09)
[2023-01-07] MEDS: risperiDONE 1 MG TABLET PO SCH (21:09)
[2023-01-07] MEDS: THIAMINE HCL 100 MG TABLET (FP) PO SCH (21:10)
[2023-01-08] MEDS: SYMTUZA PO SCH (07:44)
[2023-01-08] MEDS: SULFAMETHOXAZOLE/TRIMETHOPRIM 800MG/160MG D.S. TABLET PO SCH (09:31)
[2023-01-08] MEDS: PRENATAL VITAMINS W/ FOLIC ACID TABLET (FP) PO SCH (09:31)
[2023-01-08] MEDS: HYDROCORTISONE 1% TOPICAL CREAM 30 GM TUBE TP PRN (15:53)
[2023-01-08] MEDS: traZODone HCL 50 MG TABLET (FP) PO SCH (21:10)
[2023-01-08] MEDS: ESCITALOPRAM OXALATE 10 MG TABLET PO SCH (21:10)
[2023-01-08] MEDS: THIAMINE HCL 100 MG TABLET (FP) PO SCH (21:10)
[2023-01-08] MEDS: risperiDONE 1 MG TABLET PO SCH (21:10)
[2023-01-09] MEDS: SYMTUZA PO SCH (09:00)
[2023-01-09] MEDS: PRENATAL VITAMINS W/ FOLIC ACID TABLET (FP) PO SCH (09:32)
[2023-01-09] MEDS: SULFAMETHOXAZOLE/TRIMETHOPRIM 800MG/160MG D.S. TABLET PO SCH (09:32)
[2023-01-09] MEDS: traZODone HCL 50 MG TABLET (FP) PO SCH (21:08)
[2023-01-09] MEDS: risperiDONE 1 MG TABLET PO SCH (21:08)
[2023-01-09] MEDS: THIAMINE HCL 100 MG TABLET (FP) PO SCH (21:08)
[2023-01-09] MEDS: ESCITALOPRAM OXALATE 10 MG TABLET PO SCH (21:08)
[2023-01-09] MEDS: MAG HYDROX/AL HYDROX/SIMETH 30 ML UNIT-DOSE CUP PO PRN (21:42)
[2023-01-10] MEDS: SYMTUZA PO SCH (07:27)
[2023-01-10] MEDS: PRENATAL VITAMINS W/ FOLIC ACID TABLET (FP) PO SCH (09:41)
[2023-01-10] MEDS: SULFAMETHOXAZOLE/TRIMETHOPRIM 800MG/160MG D.S. TABLET PO SCH (09:41)
[2023-01-10] MEDS: THIAMINE HCL 100 MG TABLET (FP) PO SCH (21:07)
[2023-01-10] MEDS: traZODone HCL 50 MG TABLET (FP) PO SCH (21:07)
[2023-01-10] MEDS: ESCITALOPRAM OXALATE 10 MG TABLET PO SCH (21:07)
[2023-01-10] MEDS: risperiDONE 1 MG TABLET PO SCH (21:07)
[2023-01-11] MEDS: SYMTUZA PO SCH (07:01)
[2023-01-11] MEDS: SULFAMETHOXAZOLE/TRIMETHOPRIM 800MG/160MG D.S. TABLET PO SCH (09:06)
[2023-01-11] MEDS: NICOTINE 14 MG/24 HOURS TOPICAL PATCH TD SCH (09:06)
[2023-01-11] MEDS: PRENATAL VITAMINS W/ FOLIC ACID TABLET (FP) PO SCH (09:06)
[2023-01-11] MEDS: HYDROCORTISONE 1% TOPICAL CREAM 30 GM TUBE TP PRN (09:07)
[2023-01-11] MEDS: IBUPROFEN 600 MG TABLET (FP) PO PRN (18:58)
[2023-01-11] MEDS: THIAMINE HCL 100 MG TABLET (FP) PO SCH (21:12)
[2023-01-11] MEDS: ESCITALOPRAM OXALATE 10 MG TABLET PO SCH (21:12)
[2023-01-11] MEDS: risperiDONE 1 MG TABLET PO SCH (21:12)
[2023-01-11] MEDS: traZODone HCL 50 MG TABLET (FP) PO SCH (21:12)
[2023-01-12] MEDS: SYMTUZA PO SCH (07:04)
[2023-01-12] MEDS: SULFAMETHOXAZOLE/TRIMETHOPRIM 800MG/160MG D.S. TABLET PO SCH (10:21)
[2023-01-12] MEDS: PRENATAL VITAMINS W/ FOLIC ACID TABLET (FP) PO SCH (10:21)
[2023-01-12] MEDS: NICOTINE 14 MG/24 HOURS TOPICAL PATCH TD SCH (10:21)
[2023-01-12] MEDS: HYDROCORTISONE 1% TOPICAL CREAM 30 GM TUBE TP PRN (10:45)
[2023-01-12] MEDS: traZODone HCL 50 MG TABLET (FP) PO SCH (21:06)
[2023-01-12] MEDS: ESCITALOPRAM OXALATE 10 MG TABLET PO SCH (21:06)
[2023-01-12] MEDS: risperiDONE 1 MG TABLET PO SCH (21:06)
[2023-01-12] MEDS: THIAMINE HCL 100 MG TABLET (FP) PO SCH (21:06)
[2023-01-13] MEDS: SYMTUZA PO SCH (07:06)
[2023-01-13] MEDS: NICOTINE 14 MG/24 HOURS TOPICAL PATCH TD SCH (09:46)
[2023-01-13] MEDS: SULFAMETHOXAZOLE/TRIMETHOPRIM 800MG/160MG D.S. TABLET PO SCH (09:46)
[2023-01-13] MEDS: PRENATAL VITAMINS W/ FOLIC ACID TABLET (FP) PO SCH (09:46)
[2023-01-13] MEDS: ESCITALOPRAM OXALATE 10 MG TABLET PO SCH (21:03)
[2023-01-13] MEDS: traZODone HCL 50 MG TABLET (FP) PO SCH (21:03)
[2023-01-13] MEDS: THIAMINE HCL 100 MG TABLET (FP) PO SCH (21:03)
[2023-01-13] MEDS: risperiDONE 1 MG TABLET PO SCH (21:03)
[2023-01-14] MEDS: SYMTUZA PO SCH (07:02)
[2023-01-14] MEDS: NICOTINE 14 MG/24 HOURS TOPICAL PATCH TD SCH (10:32)
[2023-01-14] MEDS: PRENATAL VITAMINS W/ FOLIC ACID TABLET (FP) PO SCH (10:32)
[2023-01-14] MEDS: SULFAMETHOXAZOLE/TRIMETHOPRIM 800MG/160MG D.S. TABLET PO SCH (10:32)
[2023-01-14] MEDS: MAG HYDROX/AL HYDROX/SIMETH 30 ML UNIT-DOSE CUP PO PRN ×2 (14:47→21:21)
[2023-01-14] MEDS: traZODone HCL 50 MG TABLET (FP) PO SCH (21:19)
[2023-01-14] MEDS: THIAMINE HCL 100 MG TABLET (FP) PO SCH (21:19)
[2023-01-14] MEDS: risperiDONE 1 MG TABLET PO SCH (21:20)
[2023-01-14] MEDS: ESCITALOPRAM OXALATE 10 MG TABLET PO SCH (21:20)
[2023-01-15] MEDS: SYMTUZA PO SCH (07:07)
[2023-01-15 07:18] VITALS: BP 117/65; PULSE 81; RESP 18; TEMP 97.3
[2023-01-15] MEDS: NICOTINE 14 MG/24 HOURS TOPICAL PATCH TD SCH (10:20)
[2023-01-15] MEDS: PRENATAL VITAMINS W/ FOLIC ACID TABLET (FP) PO SCH (10:20)
[2023-01-15] MEDS: SULFAMETHOXAZOLE/TRIMETHOPRIM 800MG/160MG D.S. TABLET PO SCH (10:20)
== END 2023-01-15 11:30 | disposition home or self-care (01) | DRG 772 ==
LOC: YASAS 11:04 → Y3W 18:56
PROVIDERS: ADMIT Allergy & Immunology; ATTEND Psychiatry & Neurology Pain Medicine
PROC: HZ42ZZZ Group Counseling for Substance Abuse Treatment, Cognitive-Behavioral (ICD-10-PCS; principal; 2022-12-31)
DX: F14.20 Cocaine dependence, uncomplicated (principal); F10.20 Alcohol dependence, uncomplicated; F17.210 Nicotine dependence, cigarettes, uncomplicated; F19.282 Other psychoactive substance dependence with psychoactive substance-induced sleep disorder; F25.9 Schizoaffective disorder, unspecified; Z21 Asymptomatic human immunodeficiency virus [HIV] infection status; R63.4 Abnormal weight loss; Z68.1 Body mass index [BMI] 19.9 or less, adult; Z86.19 Personal history of other infectious and parasitic diseases; Z88.0 Allergy status to penicillin; Z56.0 Unemployment, unspecified
CPT/HCPCS: 36415; 80053; 81003; 85027; 86780; 87635; 87811

== ENCOUNTER 2023-05-31 14:07 | Inpatient (IN) | payer OTHER ==
[2023-05-31 14:35] VITALS: BMI 15.7
[2023-05-31] MEDS ORDERED: BENZOCAINE/MENTHOL (CHLORASEPTIC ) LOZENGE MM PRN (16:19)
[2023-05-31] MEDS ORDERED: LOPERAMIDE HCL 2 MG CAPSULE PO PRN (16:19)
[2023-05-31] MEDS ORDERED: POLYETHYLENE GLYCOL (HEALTHYLAX) 3350 17 GM PACKET PO PRN (16:19)
[2023-05-31] MEDS ORDERED: BENZONATATE 200 MG CAPSULE PO PRN (16:19)
[2023-05-31] MEDS ORDERED: guaiFENesin 600 MG TABLET.ER (FP) PO PRN (16:19)
[2023-05-31] MEDS ORDERED: MAGNESIUM HYDROX 2400MG/30ML ORAL SUSPENSION 30 ML CUP PO PRN (16:19)
[2023-05-31] MEDS: MELATONIN 5 MG TABLETS PO SCH (21:22)
[2023-05-31] MEDS: THIAMINE HCL 100 MG TABLET (FP) PO SCH (21:22)
[2023-05-31] MEDS: traZODone HCL 50 MG TABLET (FP) PO ONE (21:23)
[2023-05-31] MEDS: risperiDONE 1 MG TABLET PO ONE (21:23)
[2023-05-31] MEDS: HYDROCORTISONE 0.5% TOPICAL CREAM 30 GM TUBE TP PRN (21:54)
[2023-06-01] MEDS: PRENATAL VITAMINS W/ FOLIC ACID TABLET (FP) PO SCH (09:58)
[2023-06-01] MEDS: SULFAMETHOXAZOLE/TRIMETHOPRIM 800MG/160MG D.S. TABLET PO SCH (09:58)
[2023-06-01 12:06] LABS: HEMATOCRIT 44.4 % (35.4-49); HEMOGLOBIN 14.7 GM/dL (11.7-16.9); MCH 34.1 pg (25.7-33.7); MCHC 33.1 g/dl (32.0-35.9); MEAN CELL VOLUME 102.8 fl (80-96); MEAN PLT VOLUME 8.8 fl (7.5-11.1); PLATELET COUNT 170 10^3/uL (134-434); RBC 4.32 M/mm3 (4.00-5.60); RDW 14.4 % (11.9-15.9); WHITE BLOOD COUNT 5.2 K/mm3 (4.0-10.0)
[2023-06-01 12:06] LABS: URINE APPEARANCE CLEAR; URINE BILIRUBIN NEGATIVE (NEGATIVE); URINE COLOR YELLOW; URINE GLUCOSE (UA) NEGATIVE (NEGATIVE); URINE KETONE NEGATIVE (NEGATIVE); URINE LEUK ESTERASE NEGATIVE (NEGATIVE); URINE NITRITE NEGATIVE (NEGATIVE); URINE PROTEIN NEGATIVE (NEGATIVE); URINE UROBILINOGEN 0.2 mg/dL (0.2-1.0)
[2023-06-01] MEDS: DARUNAVIR/COB/EMTRI/TENOF ALAF 1 EACH TABLET PO SCH (12:11)
[2023-06-01] MEDS: PATIENT'S OWN MEDICATION (NON-FORMULARY) (Doravirine 100 MG Tablet) PO SCH (12:11)
[2023-06-01 12:20] LABS: EPI CELLS 1 /uL (0-25.1); HYALINE CASTS 0 /uL (0-3.1); URINE BACTERIA 1 /uL (0-1359); URINE RBC 2 /uL (0-23.9); URINE WBC 2 /uL (0-25.8)
[2023-06-01 12:44] LABS: POTASSIUM 4.1 mmol/L (3.5-5.1)
[2023-06-01 12:46] LABS: CALCIUM 9.3 mg/dL (8.5-10.1)
[2023-06-01 12:47] LABS: ALBUMIN 3.5 g/dl (3.4-5.0); BLOOD UREA NITROGEN 20.8 mg/dL (7-18)
[2023-06-01 12:50] LABS: CREATININE 1.3 mg/dL (0.55-1.3)
[2023-06-01 12:52] LABS: BILIRUBIN,TOTAL 0.2 mg/dL (0.2-1); TOT PROT 6.8 g/dl (6.4-8.2)
[2023-06-01] MEDS: MAG HYDROX/AL HYDROX/SIMETH 30 ML UNIT-DOSE CUP PO PRN (19:42)
[2023-06-01] MEDS: risperiDONE 1 MG TABLET PO SCH (21:25)
[2023-06-01] MEDS: traZODone HCL 50 MG TABLET (FP) PO SCH (21:25)
[2023-06-04] MEDS: NICOTINE POLACRILEX 2 MG LOZENGE BC PRN (10:05)
[2023-06-06] MEDS: P-EPHED 60MG/TRIPROLIDI 2.5MG TABLET PO PRN (18:59)
[2023-06-06] MEDS: amLODIPine BESYLATE 5 MG TABLET (FP) PO ONE (21:56)
[2023-06-08] MEDS ORDERED: DICYCLOMINE HCL 10 MG CAPSULE PO PRN (14:25)
[2023-06-09] MEDS: BENZONATATE 200 MG CAPSULE PO PRN (10:08)
[2023-06-09] MEDS: guaiFENesin 600 MG TABLET.ER (FP) PO PRN (18:37)
[2023-06-10] MEDS: ACETAMINOPHEN 325 MG TABLET (FP) PO PRN (06:32)
[2023-06-12] MEDS: IBUPROFEN 400 MG TABLET (FP) PO PRN (13:18)
[2023-06-13 06:54] VITALS: TEMP 97.1
[2023-06-13 08:53] VITALS: BP 126/73; PULSE 83; RESP 16
== END 2023-06-13 10:37 | disposition home or self-care (01) | DRG 772 ==
LOC: YASAS 14:07 → Y3W 18:23
PROVIDERS: ADMIT Allergy & Immunology; ATTEND Psychiatry & Neurology Pain Medicine
PROC: HZ42ZZZ Group Counseling for Substance Abuse Treatment, Cognitive-Behavioral (ICD-10-PCS; principal; 2023-05-31)
DX: F14.20 Cocaine dependence, uncomplicated (principal); F12.20 Cannabis dependence, uncomplicated; F17.210 Nicotine dependence, cigarettes, uncomplicated; F19.282 Other psychoactive substance dependence with psychoactive substance-induced sleep disorder; F25.9 Schizoaffective disorder, unspecified; Z21 Asymptomatic human immunodeficiency virus [HIV] infection status; G47.00 Insomnia, unspecified; J06.9 Acute upper respiratory infection, unspecified; B97.4 Respiratory syncytial virus as the cause of diseases classified elsewhere; R63.4 Abnormal weight loss; Z68.1 Body mass index [BMI] 19.9 or less, adult; Z86.19 Personal history of other infectious and parasitic diseases; Z88.0 Allergy status to penicillin
CPT/HCPCS: 0241U-QW; 36415; 80053; 80305; 81003; 85027; 86780; 87635; 87811